=== PATIENT | female | born 1980 | race Caucasian/White ===

== ENCOUNTER 2023-02-13 12:38 | Emergency (ER) | payer OTHER, SELFPAY ==
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
[2023-02-13 12:44] VITALS: BP 91/63; PULSE 67; RESP 19; TEMP 36.6; O2SAT 98; BMI 24.1
[2023-02-13 13:04] LABS: MANUAL DIFF FLAG NO
[2023-02-13 13:11] LABS: Basophils Percent Auto 0.4 % (0-2); Eosinophils Absolute Auto 0.1 X10*3/uL (0.0-0.4); Eosinophils Percent Auto 1.7 % (0-4); Hematocrit 47.1 % (37.0-47.0); Hemoglobin 14.8 g/dl (12.0-16.0); Imm Gran Abs Auto 0.04 X10*3/uL (0.00-0.03); Imm Gran Pct Auto 0.6 % (0.0-0.4); Lymphocytes Absolute Auto 2.4 X10*3/uL (1.2-4.9); Lymphocytes Percent Auto 34.8 % (20-40); Mean Corpuscular HGB Conc 31.4 g/dl (31.0-35.0); Mean Corpuscular Hemoglobin 31.2 pg (27.0-33.0); Mean Corpuscular Volume 99.2 fL (80.0-98.0); Mean Platelet Volume 9.8 fL (9.4-12.3); Monocytes Absolute Auto 0.3 X10*3/uL (0.1-1.2); Monocytes Percent Auto 4.9 % (2-11); Neutrophils Percent Auto 57.6 % (45-73); Platelet Count 178 X10*3/uL (160-400); Red Blood Count 4.75 X10*6/uL (4.20-5.50); Red Cell Distribution Width 15.2 % (11.0-16.0)
[2023-02-13 13:12] LABS: Appearance Urine Turbid; Color Urine Yellow; Glucose Urine UA Negative (Negative); Leukocyte Esterase Urine Large (3+) (Negative); Nitrite Urine Positive (Negative); PH 5.5 (5.0-9.0); Specific Gravity - Urine 1.015 (1.005-1.025); UMIC TRIGGER UACC YES; Urine Blood Small (1+) (Negative); Urine Ketones Negative (Negative); Urine Protein 100 (2+) mg/dL (Neg-Trace)
[2023-02-13 13:23] LABS: Bacteria Urine 4+ (None Seen); Hyaline Casts Urine 0-2 /LPF (0-2); UACC Culture Trigger YES; WBC Clumps Urine Present; WBC Urine >50 /HPF (0-5)
[2023-02-13 13:25] LABS: Acetaminophen LAB < 17 mcg/mL (<30); Alanine Aminotransferase 32 U/L (0-31); Albumin Level 3.7 g/dL (3.5-5.0); Alkaline Phosphatase 69 U/L (39-117); Anion Gap 11 (12-20); Aspartate Amino Transferase 23 U/L (5-31); Bilirubin Direct 0.2 mg/dL (0.0-0.5); Bilirubin Total 0.6 mg/dL (0.0-1.0); Blood Urea Nitrogen 12 mg/dL (9-16); Calcium 9.4 mg/dL (8.4-10.2); Carbon Dioxide 29 mmol/L (22-29); Chloride 107 mmol/L (96-108); Creatinine Clr Calc Pharmacy 91.7; Estimated Glomerular Filt Rate > 60; Ethanol < 10 mg/dL; Glucose Random 75 mg/dL (60-115); Potassium 4.2 mmol/L (3.3-5.1); Salicylate < 5.0 mg/dL (15-30); Sodium 143 mmol/L (135-145); Total Protein 6.3 g/dL (6.5-8.0)
[2023-02-13 13:39] LABS: Amphetamine Screen Urine POSITIVE (Not Detect); Barbiturates, Urine Not Detected (Not Detect); Benzodiazepines Screen Urine Not Detected (Not Detect); Cannabinoid Screen Urine POSITIVE (Not Detect); Cocaine Screen Urine POSITIVE (Not Detect); Fentanyl, urine Not Detected (Not Detect); Opiate Screen Urine Not Detected (Not Detect); Phencyclidine Screen Urine Not Detected (Not Detect)
[2023-02-13] MEDS: Sulfamethox/Trimeth 800/160 TABLET 1 TAB PO (13:44)
[2023-02-13 13:49] LABS: UPreg QC Valid YES; Urine Pregnancy NEGATIVE (NEGATIVE)
== END 2023-02-13 14:16 | disposition home or self-care (01) ==
PROVIDERS: Physician Assistant; Emergency Provider Emergency Medicine
DX: N39.0 Urinary tract infection, site not specified (principal); B96.20 Unspecified Escherichia coli [E. coli] as the cause of diseases classified elsewhere; F19.10 Other psychoactive substance abuse, uncomplicated; R44.3 Hallucinations, unspecified; G35 Multiple sclerosis; F17.210 Nicotine dependence, cigarettes, uncomplicated; Z86.19 Personal history of other infectious and parasitic diseases; F11.20 Opioid dependence, uncomplicated
CPT/HCPCS: 36415; 80048; 80076; 80143; 80179; 80307; 81001; 81025; 85025; 87086; 87088; 87186; 99282; 99283

== ENCOUNTER 2023-02-14 15:34 | Inpatient (IN) | payer OTHER, SELFPAY ==
[2023-02-14 16:10] VITALS: BP 110/60; PULSE 73; RESP 16; TEMP 36.6; O2SAT 97
[2023-02-14] MEDS: Nicotine 21 MG PATCH.TD24 TRANSDERMA (16:53)
[2023-02-14 17:31] VITALS: BMI 24.0
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
[2023-02-14 18:00] VITALS: BP 82/46; PULSE 56; RESP 18; TEMP 36.6; O2SAT 93
--- NOTE | 2023-02-14 18:34 | PC.NURSE ---
Medication reconciliation completed with [facility]. Spoke to Svetlana.
[2023-02-14] MEDS: Sulfamethox/Trimeth 800/160 TABLET 1 TAB PO (21:10)
[2023-02-14] MEDS: Buprenorphine/Naloxone 8/2 mg FILM 1 FILM SUBLINGUAL (21:10)
[2023-02-14] MEDS: Gabapentin 300 MG CAPSULE PO (21:11)
--- NOTE | 2023-02-14 22:09 | PC.NURSE ---
Valarie is noted to be isolating in her room throughout the evening. her affect is flat and she was noted to be falling asleep during this writers interview. her B/P was noted to be 82/46 with a pulse of 56 in her right arm while laying. her B/P and pulse recheck while sitting was 98/63, 65 MD made aware. patient encouraged to increase her fluid intake. patient is noted to be requesting help from this medical underwriter to sit up. she is noted to have spastic arm/body movements r/t MS. she states that she does not use any type of ambulation device. she states that she is safe on the unit. monitor for safety, continue Plan of Care
[2023-02-15] MEDS: traZODone HCL 50 MG TABLET PO ×3 (01:40→22:37)
[2023-02-15] MEDS: hydrOXYzine HCL 25 MG TABLET PO (01:40)
[2023-02-15 07:00] VITALS: BMI 24.1
[2023-02-15 08:00] VITALS: BP 95/60; PULSE 68; RESP 18; TEMP 36.7; O2SAT 97
[2023-02-15 09:03] LABS: MANUAL DIFF FLAG NO
[2023-02-15 09:10] LABS: Basophils Percent Auto 0.7 % (0-2); Eosinophils Absolute Auto 0.1 X10*3/uL (0.0-0.4); Eosinophils Percent Auto 2.4 % (0-4); Hematocrit 40.8 % (37.0-47.0); Hemoglobin 12.6 g/dl (12.0-16.0); Imm Gran Abs Auto 0.02 X10*3/uL (0.00-0.03); Imm Gran Pct Auto 0.5 % (0.0-0.4); Lymphocytes Absolute Auto 2.1 X10*3/uL (1.2-4.9); Lymphocytes Percent Auto 49.2 % (20-40); Mean Corpuscular HGB Conc 30.9 g/dl (31.0-35.0); Mean Corpuscular Hemoglobin 30.3 pg (27.0-33.0); Mean Corpuscular Volume 98.1 fL (80.0-98.0); Monocytes Absolute Auto 0.2 X10*3/uL (0.1-1.2); Monocytes Percent Auto 4.5 % (2-11); Neutrophils Absolute Auto 1.8 x10*3/uL (2.0-8.3); Neutrophils Percent Auto 42.7 % (45-73); Platelet Count 151 X10*3/uL (160-400); Red Blood Count 4.16 X10*6/uL (4.20-5.50); Red Cell Distribution Width 14.9 % (11.0-16.0); White Blood Count 4.3 X10*3/uL (4.8-10.8)
[2023-02-15] MEDS: Gabapentin 300 MG CAPSULE PO ×3 (09:19→20:09)
[2023-02-15] MEDS: Sulfamethox/Trimeth 800/160 TABLET 1 TAB PO ×2 (09:20→20:09)
[2023-02-15] MEDS: Nicotine 21 MG PATCH.TD24 TRANSDERMA (09:20)
[2023-02-15] MEDS: Buprenorphine/Naloxone 8/2 mg FILM 2 FILM SUBLINGUAL (09:22)
[2023-02-15 09:37] LABS: Alanine Aminotransferase 20 U/L (0-31); Albumin Level 3.1 g/dL (3.5-5.0); Alkaline Phosphatase 55 U/L (39-117); Anion Gap 8 (12-20); Aspartate Amino Transferase 17 U/L (5-31); Bilirubin Direct 0.1 mg/dL (0.0-0.5); Bilirubin Total 0.4 mg/dL (0.0-1.0); Blood Urea Nitrogen 11 mg/dL (9-16); Carbon Dioxide 28 mmol/L (22-29); Chloride 110 mmol/L (96-108); Cholesterol 200 mg/dL (<200); Estimated Glomerular Filt Rate > 60; Glucose Fasting 101 mg/dL (60-99); HDL Cholesterol 34 mg/dL (>40); LDL Cholesterol Calculated 137 mg/dL (<100); Sodium 142 mmol/L (135-145); Total Protein 5.2 g/dL (6.5-8.0); Triglycerides 149 mg/dL (<150)
[2023-02-15 09:46] LABS: Free T4 (Free Thyroxine) 0.96 ng/dL (0.71-1.85); Thyroid Stimulating Hormone 0.38 uIU/mL (0.32-4.0)
[2023-02-15 09:59] LABS: Folate 4.1 ng/mL (> or = 4.0); Vitamin B12 220 pg/mL (200-900)
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
[2023-02-15 10:28] LABS: Estimated Average Glucose 103 mg/dL; Hemoglobin A1c % 5.2 % (<6.0)
[2023-02-15 10:35] VITALS: BP 95/60; PULSE 68; RESP 18; O2SAT 96
--- NOTE | 2023-02-15 11:12 | P.CONHOSP_ITS ---
History of Present Illness Data of Consult Service Date: 02/15/23 Primary Care Provider: Unknown Physician HPI Reason for consult: Admission H&P Pt is a 42-year-old female with a PMH significant for multiple sclerosis, congenital immune deficiency,?hepatitis C, polysubstance use disorder, anxiety, and depression who is admitted to [facility] unit for increasing audio and visual hallucinations and delusional behavior. Patient's boyfriend reports he was woken up a few nights ago to find the pt standing over him with a knife and BB gun. Medical consult for admission H&P. Of note patient was seen and evaluated in the ED 1 day prior to admission on 02/13/2023 and evaluated for tox screen and requesting detox placement. Tox screen positive for amphetamines, cocaine, marijuana, and negative for alcohol. UA positive for UTI, and she was started on Bactrim. Patient currently states she is feeling well with no acute medical complaints. Denies headache, fever, chills, nausea, vomiting, abdominal pain, diarrhea. No chest pain/pressure, palpitations. No shortness of breath. Patient does report that she had a hysterectomy scheduled for earlier this summer due to an ?enlarged uterus?, but surgery was postponed because patient is not medically cleared. Patient admits she has not seen her neurologist for a few years because she kept getting bad news about her MS and could no longer deal with it. She expresses a desire to resume seeing neurology but would like to switch practices. Labs reviewed, significant for UA positive for UTI. Review of Systems Review of Systems: No acute medical complaints [facility] Social History Household Members: Significant Other Household Members Other:: 2 Housing: House Do you presently have visiting nurse or other home services: No Patient Tobacco Use Status: Current everyday Tobacco user Tobacco use type: Cigarette Cigarette Packs Per Day: 1 Cigarettes Per Day: 20.0 Years Smoked: 25 Patient Interested in Nicotine Replacement: Yes Patient Given Instructions on How to Stop Smoking: Yes Date Education Initiated: 02/14/23 Second Hand Smoke Exposure: Yes Substance Use Type: Marijuana Substance Use Type Other:: daily since 15 years old, coffee daily Substance Use Frequency: Chronic Longstanding Last Used Substance: Just Prior to Admission Currently Displaying Signs/Symptoms of Drug Intoxication Withdrawal: No Any prior treatment program specific to substance use: Yes (Detox 15 years ago) Have you been hit, kicked, punched, or otherwise hurt by someone within the past year? If so, by whom?: No Do you feel safe in your current relationship?: Yes Is there a partner from a previous relationship who is making you feel unsafe now?: No Are you made to feel afraid or neglected: No Spiritual Healthcare Practices: I believe in [employer] Advance Directives: No Advance Directives Information Provided: No Do you have thoughts of harming others: None Do you have a plan to hurt others: No Plan Recently lost weight without trying: No How much weight loss: Not applicable Eating poorly because of decreased appetite: No Nutrition screen score: 0 Nutrition Risks: No Nutritional Risk Patient : No : No Poor oral hygiene: No service: No Sexual orientation: Straight/Heterosexual Meds Allergies Allergy/AdvReac Type Severity Reaction Status Date / Time No Known Allergies Allergy Verified 02/13/23 12:43 Active Medications: Current Medications Acetaminophen (Acetaminophen 325 Mg Tablet) 650 mg PO Q6H PRN PRN Reason: Headache/Pain Mild Scale (1-3) Al Hydroxide/Mg Hydroxide (Magnesium Hydrox/Alum Hydrox 30 Ml Oral.Susp) 30 ml PO Q6H PRN PRN Reason: Heartburn/Nausea Buprenorphine/Naloxone (Buprenorphine/Naloxone 8/2 Mg Film) 2 film SUBLINGUAL DAILY [facility] Last Admin: 02/15/23 09:22 Dose: 2 film Clonazepam (Clonazepam 0.5 Mg Tablet) 0.5 mg PO DAILY PRN PRN Reason: Anxiety Gabapentin (Gabapentin 300 Mg Capsule) 300 mg PO TID [facility] Last Admin: 02/15/23 09:19 Dose: 300 mg Hydroxyzine HCl (Hydroxyzine Hcl 25 Mg Tablet) 25 mg PO Q6H PRN PRN Reason: Anxiety Last Admin: 02/15/23 01:40 Dose: 25 mg Magnesium Hydroxide (Milk Of Magnesia 30 Ml Oral.Susp) 30 ml PO DAILY PRN PRN Reason: Constipation Nicotine (Nicotine 21 Mg Patch.Td24) 21 mg TRANSDERMA DAILY [facility] Last Admin: 02/15/23 09:20 Dose: 21 mg Nicotine Polacrilex (Nicotine Polacrilex 2 Mg Gum) 4 mg BUCCAL Q2H PRN PRN Reason: Nicotine Cravings Trazodone HCl (Trazodone Hcl 50 Mg Tablet) 50 mg PO BEDTIME MRX1 PRN PRN Reason: Insomnia Last Admin: 02/15/23 01:40 Dose: 50 mg Trimethoprim/Sulfamethoxazole (Sulfamethox/Trimeth 800/160 Tablet) 1 tab PO BID [facility] Last Admin: 02/15/23 09:20 Dose: 1 tab Home Medications Medication Instructions Recorded Confirmed Last Taken Type buprenorphine 8 mg-naloxone 2 mg 20 mg sublingual DAILY 02/14/23 02/14/23 02/13/23 History sublingual film 8/2 clonazepam 1 mg tablet 0.5 mg PO DAILY PRN Anxiety 02/14/23 02/14/23 02/13/23 History 0.5mg gabapentin 300 mg capsule 300 mg PO TID 02/14/23 02/14/23 Unknown History sulfamethoxazole 800 1 tab PO BID UTI 02/14/23 02/14/23 Unknown History mg-trimethoprim 160 mg tablet (Bactrim DS) Physical Exam Vital Signs and Narrative: Vital Signs: Last Vital Signs Temp 97.9 F 02/14/23 18:00 Pulse 56 02/14/23 18:00 Resp 18 02/14/23 18:00 BP 82/46 L 02/14/23 18:00 Pulse Ox 93 02/14/23 18:00 O2 Del Method Room Air 02/14/23 18:00 BMI result Body Mass Index 24.0 General: AOx3, no acute distress Resp: CTA bilaterally CVS: S1, S2, RRR GI: +BS, NT, no distention Skin: No rash Neuro: Cranial nerves II-XII grossly intact bilaterally. Motor grossly intact bilaterally Extremities: No edema Psych: Appropriate affect Results Labs 02/15/23 08:25 02/15/23 09:00 Labs: Laboratory Results - last 24 hr 02/15/23 02/15/23 02/15/23 08:25 08:25 08:25 MCV 98.1 H MCH 30.3 MCHC 30.9 L RDW 14.9 Plt Count 151 L MPV 10.0 Immature Gran % (Auto) 0.5 H Neut % (Auto) 42.7 L Lymph % (Auto) 49.2 H [place] % (Auto) 4.5 Eos % (Auto) 2.4 Baso % (Auto) 0.7 Lymph # (Auto) 2.1 [place] # (Auto) 0.2 Eos # (Auto) 0.1 Baso # (Auto) 0.0 Abs Immat Gran (auto) 0.02 Absolute Neuts (auto) 1.8 L Absolute Nucleated RBC 0.000 Nucleated RBC % (auto) 0.0 Anion Gap Estim Creat Clear Calc Estimated GFR Fasting Glucose Estimat Average Glucose 103 Hemoglobin A1c % 5.2 Calcium Total Bilirubin Direct Bilirubin AST ALT Alkaline Phosphatase Total Protein Albumin Triglycerides Cholesterol LDL Cholesterol, Calc HDL Cholesterol Vitamin B12 220 Folate 4.1 TSH Free T4 02/15/23 09:00 MCV MCH MCHC RDW Plt Count MPV Immature Gran % (Auto) Neut % (Auto) Lymph % (Auto) [place] % (Auto) Eos % (Auto) Baso % (Auto) Lymph # (Auto) [place] # (Auto) Eos # (Auto) Baso # (Auto) Abs Immat Gran (auto) Absolute Neuts (auto) Absolute Nucleated RBC Nucleated RBC % (auto) Anion Gap 8 L Estim Creat Clear Calc 86.0 Estimated GFR > 60 Fasting Glucose 101 H Estimat Average Glucose Hemoglobin A1c % Calcium 9.0 Total Bilirubin 0.4 Direct Bilirubin 0.1 AST 17 ALT 20 Alkaline Phosphatase 55 Total Protein 5.2 L Albumin 3.1 L Triglycerides 149 Cholesterol 200 H LDL Cholesterol, Calc 137 H HDL Cholesterol 34 L Vitamin B12 Folate TSH 0.38 Free T4 0.96 Assessment and Plan (1) Routine history and physical examination of adult: Status: Acute Plan Pt is a 42-year-old female with a PMH significant for multiple sclerosis, congenital immune deficiency,?hepatitis C, polysubstance use disorder, anxiety, and depression who is admitted to [facility] unit for increasing audio and visual hallucinations and delusional behavior. Patient's boyfriend reports he was woken up a few nights ago to find the pt standing over him with a knife and BB gun. Medical consult for admission H&P. 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 Signing off at this time. Please let us know if there are any acute complaints or questions. Time Spent With Patient Time: Total time managing care of this patient today ____ minutes.
[2023-02-15] MEDS: clonazePAM 0.5 MG TABLET PO (19:12)
[2023-02-15 20:07] VITALS: BP 115/55; PULSE 80; RESP 16; TEMP 36.6; O2SAT 94
[2023-02-15] MEDS: Benztropine Mesylate 0.5 MG TABLET PO (20:08)
[2023-02-15] MEDS: HaloperidoL 0.5 MG TABLET 2.5 MG PO (20:09)
--- NOTE | 2023-02-16 09:37 | HO.PSYCHPN ---
Subjective Subjective Date of Service: 02/16/23 Reason For Visit: Bipolar F31.9 Substance Use Disorder F19.2 Subjective Notes: Conditional Voluntary Interim History: Reviewed in team and . Patient reports feeling okay today. Patient presents with improved insight into events prior to admission. Patient stated, I don't think someone was in the mattress. I know all that wasn't true. Being here has helped. I think it was a mix of the stress I was going through and drugs. I'm not going to take Adderall and only get marijuana from the dispensary . Patient denies SI/HI/VH/AH at this time. Medication Compliance: Yes Side effects from medications: No Attending Groups: Intermittent Review of Systems Review of Systems No acute medical complaints Constitutional: Reports as per HPI Eyes: Reports as per HPI Reports as per HPI Cardiovascular: Reports as per HPI Respiratory: Reports as per HPI Gastrointestinal: Reports as per HPI Genitourinary: Reports as per HPI Musculoskeletal: Reports as per HPI Skin/Breast: Reports as per HPI Reports as per HPI Psychiatric: Reports as per HPI Endocrine: Reports as per HPI Hematologic/Lymphatic: Reports as per HPI Allergic/Immunologic: Reports as per HPI Mental Status Exam Mental Status Exam Narrative: Pt is alert and oriented; behavior is cooperative and calm; dressed in casual attire; mood is described as okay ; eye contact appropriate; Speech is normal rate, volume and prosody and not pressured; no psychomotor agitation/retardation present; thought process is organized and goal directed; Thought content is on tx; otherwise pertinent to relevant topics and without any delusional content, paranoid ideations or grandiosity; denies SI/HI. There is no evidence of perceptual disturbance. Patients insight and judgment are poor but improving. Diagnostics Vital Signs (24Hr): Vital Signs - 24 hr 02/15/23 10:35 02/15/23 20:07 Temperature 97.8 F Pulse Rate 68 80 Respiratory Rate 18 16 Blood Pressure 95/60 115/55 L Pulse Oximetry 96 94 Oxygen Delivery Method Room Air Room Air BMI result Body Mass Index 24.1 Labs 02/15/23 08:25 02/15/23 09:00 Labs: Laboratory Results - last 48 hr 02/15/23 02/15/23 02/15/23 08:25 08:25 08:25 WBC 4.3 L RBC 4.16 L Hgb 12.6 Hct 40.8 MCV 98.1 H MCH 30.3 MCHC 30.9 L RDW 14.9 Plt Count 151 L MPV 10.0 Immature Gran % (Auto) 0.5 H Neut % (Auto) 42.7 L Lymph % (Auto) 49.[address] [place] % (Auto) 4.5 Eos % (Auto) 2.4 Baso % (Auto) 0.7 Lymph # (Auto) 2.1 [place] # (Auto) 0.2 Eos # (Auto) 0.1 Baso # (Auto) 0.0 Abs Immat Gran (auto) 0.02 Absolute Neuts (auto) 1.8 L Absolute Nucleated RBC 0.000 Nucleated RBC % (auto) 0.0 Sodium Potassium Chloride Carbon Dioxide Anion Gap BUN Creatinine Estim Creat Clear Calc Estimated GFR Fasting Glucose Estimat Average Glucose 103 Hemoglobin A1c % 5.2 Calcium Total Bilirubin Direct Bilirubin AST ALT Alkaline Phosphatase Total Protein Albumin Triglycerides Cholesterol LDL Cholesterol, Calc HDL Cholesterol Vitamin B12 220 Folate 4.1 TSH Free T4 02/15/23 09:00 WBC RBC Hgb Hct MCV MCH MCHC RDW Plt Count MPV Immature Gran % (Auto) Neut % (Auto) Lymph % (Auto) [place] % (Auto) Eos % (Auto) Baso % (Auto) Lymph # (Auto) [place] # (Auto) Eos # (Auto) Baso # (Auto) Abs Immat Gran (auto) Absolute Neuts (auto) Absolute Nucleated RBC Nucleated RBC % (auto) Sodium 142 Potassium 4.0 Chloride 110 H Carbon Dioxide 28 Anion Gap 8 L BUN 11 Creatinine 0.66 Estim Creat Clear Calc 86.0 Estimated GFR > 60 Fasting Glucose 101 H Estimat Average Glucose Hemoglobin A1c % Calcium 9.0 Total Bilirubin 0.4 Direct Bilirubin 0.1 AST 17 ALT 20 Alkaline Phosphatase 55 Total Protein 5.2 L Albumin 3.1 L Triglycerides 149 Cholesterol 200 H LDL Cholesterol, Calc 137 H HDL Cholesterol 34 L Vitamin B12 Folate TSH 0.38 Free T4 0.96 Medications Medications Current Medications Acetaminophen (Acetaminophen 325 Mg Tablet) 650 mg PO Q6H PRN PRN Reason: Headache/Pain Mild Scale (1-3) Al Hydroxide/Mg Hydroxide (Magnesium Hydrox/Alum Hydrox 30 Ml Oral.Susp) 30 ml PO Q6H PRN PRN Reason: Heartburn/Nausea Benztropine Mesylate (Benztropine Mesylate 0.5 Mg Tablet) 0.5 mg PO BEDTIME [facility] Last Admin: 02/15/23 20:08 Dose: 0.5 mg Buprenorphine/Naloxone (Buprenorphine/Naloxone 8/2 Mg Film) 2 film SUBLINGUAL DAILY [facility] Last Admin: 02/15/23 09:22 Dose: 2 film Clonazepam (Clonazepam 0.5 Mg Tablet) 0.5 mg PO DAILY PRN PRN Reason: Anxiety Last Admin: 02/15/23 19:12 Dose: 0.5 mg Gabapentin (Gabapentin 300 Mg Capsule) 300 mg PO TID [facility] Last Admin: 02/15/23 20:09 Dose: 300 mg Haloperidol (Haloperidol 0.5 Mg Tablet) 2.5 mg PO BEDTIME [facility] Last Admin: 02/15/23 20:09 Dose: 2.5 mg Hydroxyzine HCl (Hydroxyzine Hcl 25 Mg Tablet) 25 mg PO Q6H PRN PRN Reason: Anxiety Last Admin: 02/15/23 01:40 Dose: 25 mg Magnesium Hydroxide (Milk Of Magnesia 30 Ml Oral.Susp) 30 ml PO DAILY PRN PRN Reason: Constipation Nicotine (Nicotine 21 Mg Patch.Td24) 21 mg TRANSDERMA DAILY [facility] Last Admin: 02/15/23 09:20 Dose: 21 mg Nicotine Polacrilex (Nicotine Polacrilex 2 Mg Gum) 4 mg BUCCAL Q2H PRN PRN Reason: Nicotine Cravings Pt Own Medication ( Biotene Oral Rinse 15 Ml) 15 ml PO TID [facility] Stop: 03/01/23 09:01 Last Admin: 02/15/23 21:51 Dose: Not Given Trazodone HCl (Trazodone Hcl 50 Mg Tablet) 50 mg PO BEDTIME MRX1 PRN PRN Reason: Insomnia Last Admin: 02/15/23 22:37 Dose: 50 mg Trimethoprim/Sulfamethoxazole (Sulfamethox/Trimeth 800/160 Tablet) 1 tab PO BID [facility] Last Admin: 02/15/23 20:09 Dose: 1 tab Allergies Allergies Allergy/AdvReac Type Severity Reaction Status Date / Time No Known Allergies Allergy Verified 02/13/23 12:43 Assessment & Plan Assessment & Plan (1) Delusional disorder: Status: Acute Code(s): F22 - Delusional disorders (2) Substance-induced psychotic disorder with hallucinations: Status: Acute Code(s): F19.951 - Other psychoactive substance use, unspecified with psychoactive substance-induced psychotic disorder with hallucinations (3) Routine history and physical examination of adult: Status: Acute Code(s): Z00.00 - Encounter for general adult medical examination without abnormal findings Plan Patient is a 42 year old female who self presented to [facility] secondary to her boyfriend reporting being woken up with pt standing over him with a knife and BB gun stating that she is going to kill the lady that is between their mattress and boxspring. Plan: CV 15 minute safety checks Referral for therapist Referral for prescriber Haldol 2.5mg PO bedtime Cogentin 0.5mg PO bedtime 02/16: Patient reports feeling okay today. Patient presents with improved insight into events prior to admission. Patient stated, I don't think someone was in the mattress. I know all that wasn't true. Being here has helped. I think it was a mix of the stress I was going through and drugs. I'm not going to take Adderall and only get marijuana from the dispensary . Continue current tx plan. Patient educated on: diagnosis, medication risk/benefits, substance abuse and therapeutic strategies Informed Consent: understands Reason for continued inpatient stay Substantial Risk for: med/psych decompensation Time Spent With Patient Time: Total time managing care of this patient today _30___ minutes.
[2023-02-16] MEDS: Nicotine 21 MG PATCH.TD24 TRANSDERMA (09:42)
[2023-02-16] MEDS: Buprenorphine/Naloxone 8/2 mg FILM 2 FILM SUBLINGUAL (09:43)
[2023-02-16] MEDS: Gabapentin 300 MG CAPSULE PO ×3 (09:45→20:04)
[2023-02-16 09:55] VITALS: BP 101/59; PULSE 80; RESP 17; TEMP 36.3; O2SAT 91
[2023-02-16 10:00] VITALS: BP 84/56; PULSE 70; RESP 16; O2SAT 92
[2023-02-16] MEDS: Sulfamethox/Trimeth 800/160 TABLET 1 TAB PO ×2 (10:12→20:04)
[2023-02-16 12:35] VITALS: BP 124/69; PULSE 71; RESP 16; TEMP 36.2; O2SAT 93
[2023-02-16] MEDS: clonazePAM 0.5 MG TABLET PO (12:39)
--- NOTE | 2023-02-16 15:32 | PC.NURSE ---
Patient Alert 0x4, she c/o of dizziness when standing. Gait is steady and patient denies discomfort. Vitals at 1015 automated b/p 84/56 heart rate 70. Marlin Muniz COUNTER CLERK notified at 1022 of patients status. Patient took her scheduled am medications. Per PA, no orders probably due to scheduled Suboxone. Patient's B/p rechecked at 1239 b/p 124/69 HR 71. Patient alert and ox4 reported less dizziness and gait remained steady.
[2023-02-16] MEDS: hydrOXYzine HCL 25 MG TABLET PO (17:05)
[2023-02-16] MEDS: Milk of Magnesia 30 ML ORAL.SUSP PO (19:18)
[2023-02-16] MEDS: HaloperidoL 0.5 MG TABLET 2.5 MG PO (20:04)
[2023-02-16] MEDS: Benztropine Mesylate 0.5 MG TABLET PO (20:04)
[2023-02-16] MEDS: traZODone HCL 50 MG TABLET PO ×2 (20:04→21:20)
[2023-02-16 20:05] VITALS: BP 134/57; PULSE 72; RESP 16; TEMP 36.6; O2SAT 95
[2023-02-17] MEDS: hydrOXYzine HCL 25 MG TABLET PO ×2 (01:10→22:28)
[2023-02-17 09:00] VITALS: BP 99/59; PULSE 89; RESP 16; TEMP 36.1; O2SAT 91
[2023-02-17] MEDS: Nicotine 21 MG PATCH.TD24 TRANSDERMA ×2 (09:20→13:40)
[2023-02-17] MEDS: Gabapentin 300 MG CAPSULE PO ×3 (09:21→20:02)
[2023-02-17] MEDS: Buprenorphine/Naloxone 8/2 mg FILM 2 FILM SUBLINGUAL (09:21)
[2023-02-17] MEDS: Sulfamethox/Trimeth 800/160 TABLET 1 TAB PO ×2 (09:21→20:03)
--- NOTE | 2023-02-17 10:47 | HO.PSYCHPN ---
Subjective Subjective Date of Service: 02/17/23 Reason For Visit: Bipolar F31.9 Substance Use Disorder F19.2 Interim History: She reports she has been excellent. Patient also reports feeling upset because her ex got full custody of their 14 year old daughter. She says the court hearing was supposed to be postponed while she was here but it wasn't. She says she wants to leave Sunday so she can work on contacting [facility] and her about this matter. She requests increase Clonazepam which was deferred. Her O2 sats are low 90's but she says they have always been low. She reports she is not ready to stop smoking. Patient denies SI/HI/VH/AH at this time. Review of Systems Review of Systems No acute medical complaints Constitutional: Reports as per HPI Eyes: Reports as per HPI Reports as per HPI Cardiovascular: Reports as per HPI Respiratory: Reports as per HPI Gastrointestinal: Reports as per HPI Musculoskeletal: Reports as per HPI Skin/Breast: Reports as per HPI Reports as per HPI Psychiatric: Reports as per HPI Endocrine: Reports as per HPI Hematologic/Lymphatic: Reports as per HPI Allergic/Immunologic: Reports as per HPI Mental Status Exam Mental Status Exam Narrative: Pt is alert and oriented; behavior is cooperative and calm; dressed in casual attire; mood is described as okay ; eye contact appropriate; Speech is normal rate, volume and prosody and not pressured; no psychomotor agitation/retardation present; thought process is organized and goal directed; Thought content is on tx; otherwise pertinent to relevant topics and without any delusional content, paranoid ideations or grandiosity; denies SI/HI. There is no evidence of perceptual disturbance. Patients insight and judgment are poor but improving. Diagnostics Vital Signs (24Hr): Vital Signs - 24 hr 02/16/23 12:35 02/16/23 20:05 02/17/23 09:00 Temperature 97.2 F 97.8 F 96.9 F Pulse Rate 71 72 89 Respiratory Rate 16 16 16 Blood Pressure 124/69 134/57 L 99/59 L Pulse Oximetry 93 95 91 L Oxygen Delivery Method Room Air Room Air Room Air BMI result Body Mass Index 24.1 Labs 02/15/23 08:25 02/15/23 09:00 Medications Medications Current Medications Acetaminophen (Acetaminophen 325 Mg Tablet) 650 mg PO Q6H PRN PRN Reason: Headache/Pain Mild Scale (1-3) Al Hydroxide/Mg Hydroxide (Magnesium Hydrox/Alum Hydrox 30 Ml Oral.Susp) 30 ml PO Q6H PRN PRN Reason: Heartburn/Nausea Benztropine Mesylate (Benztropine Mesylate 0.5 Mg Tablet) 0.5 mg PO BEDTIME [facility] Last Admin: 02/16/23 20:04 Dose: 0.5 mg Buprenorphine/Naloxone (Buprenorphine/Naloxone 8/2 Mg Film) 2 film SUBLINGUAL DAILY [facility] Last Admin: 02/17/23 09:21 Dose: 2 film Clonazepam (Clonazepam 0.5 Mg Tablet) 0.5 mg PO DAILY PRN PRN Reason: Anxiety Last Admin: 02/16/23 12:39 Dose: 0.5 mg Gabapentin (Gabapentin 300 Mg Capsule) 300 mg PO TID [facility] Last Admin: 02/17/23 09:21 Dose: 300 mg Haloperidol (Haloperidol 0.5 Mg Tablet) 2.5 mg PO BEDTIME [facility] Last Admin: 02/16/23 20:04 Dose: 2.5 mg Hydroxyzine HCl (Hydroxyzine Hcl 25 Mg Tablet) 25 mg PO Q6H PRN PRN Reason: Anxiety Last Admin: 02/17/23 01:10 Dose: 25 mg Magnesium Hydroxide (Milk Of Magnesia 30 Ml Oral.Susp) 30 ml PO DAILY PRN PRN Reason: Constipation Last Admin: 02/16/23 19:18 Dose: 30 ml Nicotine (Nicotine 21 Mg Patch.Td24) 21 mg TRANSDERMA DAILY [facility] Last Admin: 02/17/23 09:20 Dose: 21 mg Nicotine Polacrilex (Nicotine Polacrilex 2 Mg Gum) 4 mg BUCCAL Q2H PRN PRN Reason: Nicotine Cravings Pt Own Medication ( Biotene Oral Rinse 15 Ml) 15 ml PO TID [facility] Stop: 03/01/23 09:01 Last Admin: 02/17/23 09:28 Dose: Not Given Trazodone HCl (Trazodone Hcl 50 Mg Tablet) 50 mg PO BEDTIME MRX1 PRN PRN Reason: Insomnia Last Admin: 02/16/23 21:20 Dose: 50 mg Trimethoprim/Sulfamethoxazole (Sulfamethox/Trimeth 800/160 Tablet) 1 tab PO BID [facility] Last Admin: 02/17/23 09:21 Dose: 1 tab Allergies Allergies Allergy/AdvReac Type Severity Reaction Status Date / Time No Known Allergies Allergy Verified 02/13/23 12:43 Assessment & Plan Assessment & Plan (1) Delusional disorder: Status: Acute Code(s): F22 - Delusional disorders (2) Substance-induced psychotic disorder with hallucinations: Status: Acute Code(s): F19.951 - Other psychoactive substance use, unspecified with psychoactive substance-induced psychotic disorder with hallucinations (3) Routine history and physical examination of adult: Status: Acute Code(s): Z00.00 - Encounter for general adult medical examination without abnormal findings Plan Patient is a 42 year old female who self presented to [facility] secondary to her boyfriend reporting being woken up with pt standing over him with a knife and BB gun stating that she is going to kill the lady that is between their mattress and boxspring. Plan: CV 15 minute safety checks Referral for therapist Referral for prescriber Haldol 2.5mg PO bedtime Cogentin 0.5mg PO bedtime 02/16: Patient reports feeling okay today. Patient presents with improved insight into events prior to admission. Patient stated, I don't think someone was in the mattress. I know all that wasn't true. Being here has helped. I think it was a mix of the stress I was going through and drugs. I'm not going to take Adderall and only get marijuana from the dispensary . Continue current tx plan. 02/17: Continue current treatment plan. Reason for continued inpatient stay Substantial Risk for: inability to function and rapid decompensation Time Spent With Patient Time: Total time managing care of this patient today ____ minutes.
[2023-02-17] MEDS: clonazePAM 0.5 MG TABLET PO (14:41)
[2023-02-17 19:50] VITALS: BP 111/64; PULSE 70; RESP 16; TEMP 36.1; O2SAT 96
[2023-02-17] MEDS: HaloperidoL 0.5 MG TABLET 2.5 MG PO (20:01)
[2023-02-17] MEDS: Benztropine Mesylate 0.5 MG TABLET PO (20:03)
[2023-02-17] MEDS: Simethicone 80 MG TAB.CHEW PO (20:03)
[2023-02-17] MEDS: traZODone HCL 50 MG TABLET PO ×2 (20:03→22:28)
--- NOTE | 2023-02-17 20:18 | PC.NURSE ---
Valarie reported that she vomited at 1999. Patient stated that she is now feeling better and it must of been something she ate that did not agree with her stomach. Patient currently in bed resting.
[2023-02-18 09:28] VITALS: BP 97/60; PULSE 77; TEMP 36.2; O2SAT 90
[2023-02-18] MEDS: Nicotine 21 MG PATCH.TD24 TRANSDERMA (09:34)
[2023-02-18] MEDS: Buprenorphine/Naloxone 8/2 mg FILM 2 FILM SUBLINGUAL (09:35)
[2023-02-18] MEDS: Gabapentin 300 MG CAPSULE PO ×3 (09:35→19:57)
[2023-02-18] MEDS: Sulfamethox/Trimeth 800/160 TABLET 1 TAB PO ×2 (09:35→19:52)
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
[2023-02-18] MEDS: clonazePAM 0.5 MG TABLET PO (14:13)
[2023-02-18 18:00] VITALS: BP 101/65; PULSE 77; TEMP 36.2; O2SAT 94
[2023-02-18] MEDS: traZODone HCL 50 MG TABLET PO ×2 (19:52→21:33)
[2023-02-18] MEDS: HaloperidoL 0.5 MG TABLET 2.5 MG PO (19:56)
[2023-02-18] MEDS: Benztropine Mesylate 0.5 MG TABLET PO (19:57)
[2023-02-19 07:59] VITALS: BP 101/55; PULSE 87; RESP 16; TEMP 36.6; O2SAT 92
[2023-02-19] MEDS: Sulfamethox/Trimeth 800/160 TABLET 1 TAB PO (08:07)
[2023-02-19] MEDS: Buprenorphine/Naloxone 8/2 mg FILM 2 FILM SUBLINGUAL (08:07)
[2023-02-19] MEDS: Nicotine 21 MG PATCH.TD24 TRANSDERMA (08:07)
[2023-02-19] MEDS: Gabapentin 300 MG CAPSULE PO (08:07)
[2023-02-19] MEDS: clonazePAM 0.5 MG TABLET PO (11:30)
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
== END 2023-02-19 14:02 | disposition home or self-care (01) | DRG 897 ==
PROVIDERS: Admitting Provider Psychiatry & Neurology Psychiatry; Responsible Provider Registered Nurse; Visit Provider Psychiatry & Neurology Psychiatry
DX: F19.951 Other psychoactive substance use, unspecified with psychoactive substance-induced psychotic disorder with hallucinations (principal); F11.20 Opioid dependence, uncomplicated; N39.0 Urinary tract infection, site not specified; G35 Multiple sclerosis; Z86.19 Personal history of other infectious and parasitic diseases; F17.210 Nicotine dependence, cigarettes, uncomplicated; Z71.6 Tobacco abuse counseling; Z79.899 Other long term (current) drug therapy
CPT/HCPCS: 36415; 80053; 80061; 80076; 82607; 82746; 83036; 84439; 84443; 85025

== ENCOUNTER → 2023-02-14 15:34 | Outpatient (BNV) | payer OTHER, SELFPAY | PROVIDERS: Admitting Provider Psychiatry & Neurology Psychiatry; Responsible Provider Registered Nurse; Visit Provider Registered Nurse | DX: F22 Delusional disorders (principal); F19.951 Other psychoactive substance use, unspecified with psychoactive substance-induced psychotic disorder with hallucinations; F31.9 Bipolar disorder, unspecified | CPT/HCPCS: 90792; 99231; 99232; 99238 ==

== ENCOUNTER → 2023-02-14 15:34 | Outpatient (BNV) | payer OTHER, SELFPAY | PROVIDERS: Admitting Provider Psychiatry & Neurology Psychiatry; Responsible Provider Registered Nurse; Visit Provider Student in an Organized Health Care Education/Training Program | DX: G35 Multiple sclerosis (principal); N39.0 Urinary tract infection, site not specified; B19.20 Unspecified viral hepatitis C without hepatic coma | CPT/HCPCS: 99222 ==

== ENCOUNTER 2024-07-20 17:00 | Inpatient (IN) | payer OTHER, SELFPAY ==
--- NOTE | ~2024-07-20 | XR_ITS ---
EXAMINATION: XR CHEST CLINICAL INFORMATION: Hypoxia COMPARISON: X-ray dated July 21, 2024 TECHNIQUE: Frontal view of the chest was obtained. FINDINGS: Linear opacities and haziness in the right lower hemithorax. No pneumothorax. No hyperinflation. Cardiomediastinal silhouette is normal in size. Osseous structures are intact. XR/XR chest 1V IMPRESSION: Overall improved aeration since prior examination. Probable atelectasis, lung bases. Probable mild interstitial lung edema. Electronically signed by: Nikolas Castillo MD 07/22/2024 10:12 AM [facility]
--- NOTE | ~2024-07-20 | XR_ITS ---
EXAMINATION: XR CHEST CLINICAL INFORMATION: hypoxic COMPARISON: None available. TECHNIQUE: Frontal view of the chest was obtained. FINDINGS: The lungs are moderately expanded with a bandlike density in the right lower lobe likely atelectasis. There is patchy opacity left lung base likely atelectasis. Infiltrate is not excluded. The heart size and pulmonary vascularity is normal. No gross bony abnormality seen. XR/XR chest 1V IMPRESSION: Bandlike atelectasis right lower lobe. Patchy opacity left lung base likely infiltrate or atelectasis. Electronically signed by: Kit Dawson MD 07/21/2024 08:47 AM [facility]
--- NOTE | ~2024-07-20 | CT_ITS ---
CLINICAL HISTORY: severe hypoxia CT angiography chest with contrast. 3D Postprocessing. Comparison: CR/SR - XR CHEST 1V - 07/21/24 07:58 EST Findings: The heart size is normal. RV/LV ratio is normal. Unremarkable thoracic aorta and great vessels. No aneurysm. No acute pulmonary embolus. The visualized thyroid and mediastinum are unremarkable. Bibasilar area of consolidations which could represent atelectasis or developing pneumonia. The visualized upper abdomen is unremarkable. The bones are intact. IMPRESSION: 1. No pulmonary embolus. 2. Bibasilar consolidation which could represent atelectasis or developing pneumonia. This document has been electronically signed by: Mirela Cruz MD on 07/21/2024 21:49:02
--- NOTE | 2024-07-20 17:03 | ED.GENADULT ---
HPI - General Adult General Chief complaint: Psychiatric Symptoms Stated complaint: crisis, insomnia, hallucinations Time Seen by Provider: 07/20/24 17:18 Source: patient, RN notes reviewed and old records reviewed Mode of arrival: ambulatory Limitations: no limitations History of Present Illness ED Provider: Cam HPI narrative: 44-year-old female past medical history significant for delusional disorder, substance abuse presents for evaluation of ?hallucinations, insomnia, and depression. ? Patient reports that for the last 3 days she has been unable to sleep. She states that she is hallucinating due to her lack of sleep. She is both hearing things and seeing things that she does not believe to be there She also endorses suicidal ideation with plan to overdose. The patient was seen here a year and a half ago for suicidal ideation and reports that she received inpatient care which helped her greatly She reports that she has been off her medications because her primary doctor retired and she does not have a new on Related Data Home Medications ?Medication ?Instructions ?Recorded ?Confirmed famotidine 20 mg tablet 20 mg PO BID PRN upset stomach 07/20/24 07/20/24 folic acid 1 mg tablet 1 mg PO DAILY 07/20/24 07/20/24 gabapentin 400 mg capsule 400 mg PO QID 07/20/24 07/20/24 Allergies Allergy/AdvReac Type Severity Reaction Status Date / Time No Known Allergies Allergy Verified 07/20/24 17:04 Review of Systems Constitutional: Constitutional: Denies body ache(s), Denies chills and Denies headache(s) Eyes: Eyes: Denies blurry vision ENT: Denies vertigo, Denies dizziness and Denies headache(s) Cardiovascular: Cardiovascular: Denies chest pain and Denies dyspnea Respiratory: Respiratory: Denies cough and Denies dyspnea Gastrointestinal: Gastrointestinal: Denies abdominal pain Musculoskeletal: Musculoskeletal: Reports myalgias Neurologic: Denies vertigo, Denies dizziness and Denies headache(s) Psychiatric: Psychiatric: Reports anxiety, Reports depression, Reports auditory hallucinations, Reports mood swings, Reports visual hallucinations, Denies tactile hallucinations, Reports homicidal ideation and Reports suicidal ideation [facility] Past Medical History Medical History (Updated 07/20/24 @ 18:01 by Dayday Levy) Hx of hepatitis C Multiple sclerosis Routine history and physical examination of adult Social History Social History Household Members: Significant Other Household Members Other:: 2 Housing: House Do you presently have visiting nurse or other home services: No Patient Tobacco Use Status: Current everyday Tobacco user Tobacco use type: Cigarette Cigarette Packs Per Day: 1 Cigarettes Per Day: 20.0 Years Smoked: 25 Smoked in Last 30 Days: No Second Hand Smoke Exposure: Yes Use of substances other than those prescribed or required for medical reasons: Yes Substance Use Type: Painkillers Advance Directives: No Advance Directives Information Provided: No Do you have a plan to hurt others: Specific Patient : No service: No Sexual orientation: Straight/Heterosexual Physical Exam ED Vital Signs: Vital Signs - 24 hr 07/20/24 17:04 07/20/24 17:47 Temperature 98.3 F Pulse Rate 101 H Respiratory Rate 18 16 Blood Pressure 148/88 H Pulse Oximetry 93 Oxygen Delivery Method Room Air BMI result Body Mass Index 30.7 Const General: healthy appearing, comfortable, no acute distress, alert and awake Nutritional Appearance: well nourished Orientation/consciousness: patient oriented x3 HENMT Head: Yes normocephalic and Yes atraumatic Eyes Eyelids: Yes eyelids normal Conjunctivae: conjunctivae normal Sclerae: sclerae normal Corneas: corneas normal Pupils: Equal, round and reactive pupils present EOM: EOMs intact bilaterally Neck Neck: Yes full ROM Resp Effort & Inspection: normal respiratory effort, able to speak in complete sentences and not labored Cardio Rate: regular rate Rhythm: regular rhythm GI Inspection: No distended Palpation (GI): Soft to palpation, not firm, nontender, no guarding and not rigid Skin General skin exam: elasticity normal Neuro General: patient oriented x3 Cranial nerves: Yes CN's II-XII intact bilaterally, Yes Equal, round and reactive pupils present and Yes Bilaterally intact EOM present Cognition (Neuro): normal cognition Extrem Other: Moving all extremities well without any obvious deformities Psych Appearance: grossly normal Speech and movement: Restless speech present Affect: Sad affect present Attitude: cooperative Thought process: Normal thought process present Thought content: Suicidality present, Hallucination(s) present and Depressive thoughts present Insight: Fair insight present (Psych) Judgement: Fair judgement present (Psych) Course Course Course Narrative: RME performed by Mariel Clay PA-C. Patient is a 44 year old assigned female at presenting to the emergency department with insomnia. Patient states she is feeling very tired and has not been sleeping well / at all over the last 3 days. Patient states that she is hallucinating people in the house. Patient talking about hurting herself recently. Detailed physical exam and review of systems are deferred to the janitorial tech. EKG, labs, and swabs ordered. guest service agent made aware. Medications Administered Generic Name Dose Route Start Last Admin Trade Name Freq PRN Reason Stop Dose Admin Famotidine 20 mg 07/20/24 18:02 07/20/24 20:03 Famotidine 20 Mg Tablet PO 20 mg BID PRN Administration upset stomach Gabapentin 400 mg 07/20/24 21:00 07/20/24 20:03 Gabapentin 400 Mg Capsule PO 400 mg QID LATASHA Administration Melatonin 3 mg 07/20/24 20:20 07/20/24 20:27 Melatonin 3 Mg Tablet PO 3 mg BEDTIME PRN Administration Insomnia Discontinued Medications Generic Name Dose Route Start Last Admin Trade Name Freq PRN Reason Stop Dose Admin Clonazepam 1 mg 07/20/24 18:02 07/20/24 18:19 Clonazepam 1 Mg Tablet PO 07/20/24 18:03 1 mg ONCE ONE Administration Lorazepam 2 mg 07/20/24 23:01 07/20/24 23:05 Lorazepam 1 Mg Tablet PO 07/20/24 23:02 2 mg ONCE STA Administration Nicotine 21 mg 07/20/24 19:30 07/20/24 19:05 Nicotine 21 Mg Patch.Td24 TRANSDERMA 07/20/24 19:31 21 mg ONCE ONE Administration Nicotine 21 mg 07/20/24 18:45 07/20/24 18:46 Nicotine 21 Mg Patch.Td24 TRANSDERMA 07/20/24 18:46 Not Given ONCE ONE Medical Decision Making Medical Decision Making MDM Narrative: 44-year-old female presents for evaluation of suicidal ideation as well as hallucinations. Plan for medical clearance and care team evaluation. She is nontoxic appearing, she is quite anxious and requesting ?Klonopin and pain medicine like Percocet. ? She reports that she has previously been prescribed these but has been buying them off the street because her primary doctor retired 07/21/2024 at 01:09 hours,Dr. Morgan Sheppard's note: According to the patient's nurse, the patient manic behavior, she was not been able to sleep and has been getting to hallucinate. Patient was given melatonin 3 mg and lorazepam 2 mg with no improvement. Given her hallucinations the patient was ordered to get Haldol 10 mg orally and Benadryl 50 mg orally. Differential Diagnosis Differential Diagnoses: The differential diagnosis associated with the presentation includes Schizophrenia [place] Substance abuse Psychosis Insomnia Admission/Observation Consideration of admission/observation: Escalation of care including admission/observation considered Lab Data 07/20/24 18:16 07/20/24 18:16 Labs: Lab Results 07/20/24 07/20/24 Range/Units 18:16 18:17 WBC 7.0 (4.8-10.8) X10*3/uL RBC 5.03 D (4.20-5.50) X10*6/uL Hgb 16.1 H D (12.0-16.0) g/dl Hct 48.3 H (37.0-47.0) % MCV 96.0 (80.0-98.0) fL MCH 32.0 (27.0-33.0) pg MCHC 33.3 (31.0-35.0) g/dl RDW 14.7 (11.0-16.0) % Plt Count 161 (160-400) X10*3/uL MPV 10.5 (9.4-12.3) fL Immature Gran % (Auto) 0.4 (0.0-0.4) % Neut % (Auto) 68.9 (45-73) % Lymph % (Auto) 23.3 (20-40) % [place] % (Auto) 6.0 (2-11) % Eos % (Auto) 1.0 (0-4) % Baso % (Auto) 0.4 (0-2) % Lymph # (Auto) 1.6 (1.2-4.9) X10*3/uL [place] # (Auto) 0.4 (0.1-1.2) X10*3/uL Eos # (Auto) 0.1 (0.0-0.4) X10*3/uL Baso # (Auto) 0.0 (0.0-0.2) X10*3/uL Abs Immat Gran (auto) 0.03 (0.00-0.03) X10*3/uL Absolute Neuts (auto) 4.8 (2.0-8.3) x10*3/uL Absolute Nucleated RBC 0.000 (0.0-0.012) X10*3/uL Nucleated RBC % (auto) 0.0 (0.0-0.2) /100WBC Sodium 142 (135-145) mmol/L Potassium 3.8 (3.3-5.1) mmol/L Chloride 112 H (96-108) mmol/L Carbon Dioxide 23 (22-29) mmol/L Anion Gap 11 L (12-20) BUN 16 (9-16) mg/dL Creatinine 0.67 (0.5-1.4) mg/dL Estim Creat Clear Calc 93.4 Estimated GFR > 60 Random Glucose 106 (60-115) mg/dL Calcium 9.4 (8.4-10.2) mg/dL Total Bilirubin 1.1 H (0.0-1.0) mg/dL AST 44 H (5-31) U/L ALT 39 H (0-31) U/L Alkaline Phosphatase 75 (39-117) U/L Total Protein 7.2 (6.5-8.0) g/dL Albumin 4.3 (3.5-5.0) g/dL Urine Color Dark Yellow Urine Appearance Cloudy Urine pH 5.5 (5.0-9.0) Ur Specific [place] >= 1.030 H (1.005-1.025) Urine Protein Trace (Neg-Trace) mg/dL Urine Glucose (UA) Negative (Negative) mg/dL Urine Ketones Trace (Negative) mg/dL Urine Blood Negative (Negative) Urine Nitrite Negative (Negative) Ur Leukocyte Esterase Negative (Negative) Urine Test NEGATIVE (NEGATIVE) Salicylates < 5.0 L (15-30) mg/dL Urine Opiates Screen Not Detected (Not Detect) Ur Buprenorphine Scrn Positive H (Not Detect) ng/mL Ur Oxycodone Screen Not Detected (Not Detect) ng/mL Urine Methadone Screen Not Detected (Not Detect) ng/mL Urine Fentanyl Screen Not Detected (Not Detect) Acetaminophen < 3 (<30) mcg/mL Ur Barbiturates Screen Not Detected (Not Detect) Ur Phencyclidine Scrn Not Detected (Not Detect) Ur Amphetamines Screen POSITIVE H (Not Detect) U Benzodiazepines Scrn Not Detected (Not Detect) Urine Cocaine Screen Not Detected (Not Detect) U Marijuana (THC) Screen POSITIVE H (Not Detect) Ethyl Alcohol < 10 mg/dL COVID-19 (JAMEL) Negative (Negative) COVID-19 Clin Com See Note Discharge Plan Discharge Clinical Impression: Suicidal ideation, Auditory hallucinations Patient Disposition: Still a Patient Prescriptions: No Action gabapentin 400 mg capsule 400 mg PO QID famotidine 20 mg tablet 20 mg PO BID PRN (Reason: upset stomach) folic acid 1 mg tablet 1 mg PO DAILY Interventions: [place]-Suicide Risk Severity Scale Last Done: 07/20/24 17:47 Print Language: Armenian
[2024-07-20 17:04] VITALS: BP 148/88; PULSE 101; RESP 18; TEMP 36.8; O2SAT 93; BMI 30.7
--- NOTE | 2024-07-20 17:06 | ECG_ITS ---
Test Reason : tachy Blood Pressure : */* mmHG Vent. Rate : 115 BPM Atrial Rate : 115 BPM P-R Int : 168 ms QRS Dur : 82 ms QT Int : 334 ms P-R-T Axes : 65 8 -3 degrees QTcB Int : 462 ms Sinus tachycardia Septal infarct , age undetermined ; could be related to body habitus and lead placement Abnormal ECG No previous ECGs available Referred By: Leonard Coello Electronically Signed By: AKHIL BELL
[2024-07-20 17:47] VITALS: RESP 16
[2024-07-20] MEDS: clonazePAM 1 MG TABLET PO (18:19)
[2024-07-20 18:22] LABS: MANUAL DIFF FLAG NO
[2024-07-20 18:24] LABS: Basophils Percent Auto 0.4 % (0-2); Eosinophils Absolute Auto 0.1 X10*3/uL (0.0-0.4); Hematocrit 48.3 % (37.0-47.0); Hemoglobin 16.1 g/dl (12.0-16.0); Imm Gran Abs Auto 0.03 X10*3/uL (0.00-0.03); Imm Gran Pct Auto 0.4 % (0.0-0.4); Lymphocytes Absolute Auto 1.6 X10*3/uL (1.2-4.9); Lymphocytes Percent Auto 23.3 % (20-40); Mean Corpuscular HGB Conc 33.3 g/dl (31.0-35.0); Mean Platelet Volume 10.5 fL (9.4-12.3); Monocytes Absolute Auto 0.4 X10*3/uL (0.1-1.2); Neutrophils Absolute Auto 4.8 x10*3/uL (2.0-8.3); Neutrophils Percent Auto 68.9 % (45-73); Platelet Count 161 X10*3/uL (160-400); Red Blood Count 5.03 X10*6/uL (4.20-5.50); Red Cell Distribution Width 14.7 % (11.0-16.0)
[2024-07-20 18:26] LABS: Appearance Urine Cloudy; Color Urine Dark Yellow; Glucose Urine UA Negative (Negative); Leukocyte Esterase Urine Negative (Negative); Nitrite Urine Negative (Negative); PH 5.5 (5.0-9.0); Specific Gravity - Urine >= 1.030 (1.005-1.025); UPreg QC Valid YES; Urine Blood Negative (Negative); Urine Ketones Trace mg/dL (Negative); Urine Pregnancy NEGATIVE (NEGATIVE); Urine Protein Trace mg/dL (Neg-Trace)
[2024-07-20 18:36] LABS: Amphetamine Screen Urine POSITIVE (Not Detect); Barbiturates, Urine Not Detected (Not Detect); Benzodiazepines Screen Urine Not Detected (Not Detect); Buprenorphine Scr Positive (Not Detect); Cannabinoid Screen Urine POSITIVE (Not Detect); Cocaine Screen Urine Not Detected (Not Detect); Fentanyl, urine Not Detected (Not Detect); Methadone Screen, Urine Not Detected (Not Detect); Opiate Screen Urine Not Detected (Not Detect); Oxycodone Screen Urine Not Detected (Not Detect); Phencyclidine Screen Urine Not Detected (Not Detect)
[2024-07-20 18:39] LABS: COVID-19 Test Negative (Negative); IDNOW Serial# 55D5AD1C
[2024-07-20 18:42] LABS: Acetaminophen LAB < 3 mcg/mL (<30); Salicylate < 5.0 mg/dL (15-30)
[2024-07-20 18:44] LABS: Anion Gap 11 (12-20)
[2024-07-20 18:49] LABS: Alanine Aminotransferase 39 U/L (0-31); Albumin Level 4.3 g/dL (3.5-5.0); Alkaline Phosphatase 75 U/L (39-117); Aspartate Amino Transferase 44 U/L (5-31); Bilirubin Total 1.1 mg/dL (0.0-1.0); Blood Urea Nitrogen 16 mg/dL (9-16); Calcium 9.4 mg/dL (8.4-10.2); Carbon Dioxide 23 mmol/L (22-29); Chloride 112 mmol/L (96-108); Creatinine Clr Calc Pharmacy 93.4; Estimated Glomerular Filt Rate > 60; Ethanol < 10 mg/dL; Glucose Random 106 mg/dL (60-115); Potassium 3.8 mmol/L (3.3-5.1); Sodium 142 mmol/L (135-145); Total Protein 7.2 g/dL (6.5-8.0)
[2024-07-20] MEDS: Nicotine 21 MG PATCH.TD24 TRANSDERMA (19:05)
[2024-07-20] MEDS: Gabapentin 400 MG CAPSULE PO (20:03)
[2024-07-20] MEDS: Famotidine 20 MG TABLET PO (20:03)
--- OUTSIDE RECORDS SUMMARY | 2024-07-20 20:11 | XMS_ITS | Data Portability ---
Author Organization [employer] [facility], [place] - Formerly [facility], later [facility] Address [address] [place] [phone] Care Team Providers Care Postal Service Mail Processor Name Role Phone HIM CCA Referring Provider [phone] Assessment Encounter Date Assessment Date Assessment LastModified by Organization Details LastModified Time 10/05/2023 10/05/2023 I provided real -time medical direction via phone for this encounter, and was available for additional phone based assistance as needed. I have reviewed and agree with the Assessment and Plan as documented by the Head Mva Reactor Operator. We discussed the diagnostic uncertainty of home visits and the risk associated with this. The patient and her significant other who is her ROADWAY TECHNICIAN, Mat,t given the opportunity to ask questions. Advised if develops worsening CP, changes in radiation/uncont rolled sweating/severe SOB/turning blue/uncontrolle d n/v/d or black/bloody emesis or stool/ AMS/ syncope/ hi fever to call 911- they verbalized understanding of instruction [email or web address] Not available 10/05/2023 14:38:00 Plan of Treatment Reminders Order Date Submit Date Provider Last Modified By Organization Details Last Modified Time Details Appointments None recorded. Lab None recorded. Referral None recorded. Procedures None recorded. Surgeries None recorded. Imaging electrocard iogram 2023 024 [email or web address] 0 [facility], [address] [place] [address], [phone], 14:44:23 Medication Orders None recorded. Patient TargetsNo targets recorded. Patient InstructionsNo instructions recorded. Reason for Referral None Reported. Results Created Date Observation Date Name Description Value Unit Range Abnormal Flag Note LastModifiedBy Organization Detail LastModifiedTime 10/05/19 24 10/05/2023 elect mukesh vanggr am No observ ation record ed. [email or web address] [address], [id number], 10/05/2023 14:44:22 Result Notes None recorded. Procedures Surgical History None recorded. Imaging Results Imaging Date Name Status LastModified by Organization Details LastModified Time 10/05/2023 electrocardiogram completed [email or web address] [address], [id number], 10/05/2023 14:44:22 Procedure Notes None recorded. Medical Equipment None Reported. Allergies No known drug allergies Medications Name Sig Start Date Stop Date Status Note LastModified by Organization Details LastModified Time benztropine 0.5 mg tablet TAKE 1 TABLET BY MOUTH AT BEDTIME FOR 7 DAYS active Not Available Not Available No t Available haloperidol 5 mg tablet TAKE 1 TO 2 TABLETS BY MOUTH EVERY DAY active Not Available Not Available No t Available fluconazole 150 mg tablet TAKE 1 TABLET BY MOUTH 1 TIME. MAY REPEAT DOSE IN 72 HOURS. IF NO IMPROVEMENT IN SYMPTOMS active Not Available Not Available Not Available gabapentin 400 mg capsule TAKE ONE CAPSULE BY MOUTH THREE TIMES DAILY active Not Available Not Available Not Available clonazepam 1 mg tablet TAKE 1 TABLET BY MOUTH TWICE DAILY NEEDED FOR ANXIETY active Not Available Not Available No t Available cyanocobalam in (vit B-12) 1,000 mcg tablet TAKE 1 TABLET BY MOUTH ONCE A DAY active Not Available Not Available No t Available haloperidol 1 mg tablet TAKE 2 AND 1/2 TABLETS BY MOUTH AT BEDTIME FOR 7 DAYS active Not Available Not Available No t Available metronidazol e 500 mg tablet TAKE 1 TABLET BY MOUTH TWICE DAILY FOR 7 DAYS active Not Available Not Available No t Available sulfamethoxa zole 800 mg-trimethop rim 160 mg tablet TAKE 1 TABLET BY MOUTH TWICE DAILY active Not Available Not Available No t Available famotidine 20 mg tablet TAKE 1 TABLET BY MOUTH TWICE DAILY NEEDED FOR HEARTBURN OR INDIGESTION active Not Available Not Available Not Available benztropine 1 mg tablet TAKE 1 TABLET BY MOUTH EVERY DAY FOR 15 DAYS active Not Available Not Available No t Available gabapentin 300 mg capsule TAKE 2 CAPSULES BY MOUTH THREE TIMES DAILY active Not Available Not Available Not Available flurbiprofen 100 mg tablet TAKE 1 TABLET BY MOUTH THREE TIMES DAILY NEEDED FOR MODERATE PAIN active Not Available Not Available No t Available folic acid 1 mg tablet TAKE 1 TABLET BY MOUTH DAILY active Not Available Not Available Not Available buprenorphin e 8 mg-naloxone 2 mg sublingual film DISSOLVE 2 FILMS UNDER THE TONGUE DAILY EVERY MORNING active Not Available Not Available No t Available Banophen 50 mg capsule TAKE 1 CAPSULE BY MOUTH EVERY DAY AT BEDTIME NEEDED active Not Available Not Available No t Available naloxone 4 mg/actuation nasal spray CALL 911. SPR CONTENTS OF ONE SPRAYER (0.1ML) INTO ONE NOSTRIL. REPEAT IN 2-3 MIN IF SYMPTOMS OF OPIOID EMERGENCY PERSIST, ALTERNATE NOSTRILS active Not Available Not Available No t Available Vitals Date Recorded Respiratory rate Heart rate Body weight Body height Body temperature Oxygen saturation Oxygen saturation in Arterial blood by Pulse oximetry Systolic blood pressure Diastolic blood pressure Provider Name and Address Organization Details Last Updated DateTime 4 20 /min 112 /min 99621.8 4 g 152.4 cm 98.2 [degF] 92 % 92 % 92 mm[Hg] 57 mm[Hg] Not Available [facility] - production 4 12:15:53 Social History None recorded. Functional Status None recorded. Mental Status None recorded. Family History Nothing Reported. Medical History No medical history recorded. Gynecological HistoryNo gynecological history recorded. Obstetrics History GPAL:G 0 P 0 0 0 0 Past Encounters Encounter ID Performer Location Encounter Start Date Encounter Closed Date Diagnosis/Indication Diagnosis SNOMED-CT Code Diagnosis ICD10 Code Diagnosis Note [id number] Sandhya Garcia MD Main - [facility] [address] [place] [id number] 10/05/2023 12:15:43 10/08/2023 17:57:52 Chest pain 81310788 R07.9 I spoke with the patient and her S/O at length with the medic and I explained with the report of an abnormal cardiac stress test, early onset significan t CAD in women in her family and smoking that she is at risk of ACS, IA or sudden cardiac . I further explained that while her EKG does not show obvious ischemia, 1 EKG does not rule out an acute coronary event, and she needs further workup to determine if she needs emergency stenting. I also cautioned her and her S/O against taking medication that is not prescribed for her, even though he did it at 10 AM this morning to try and get her to sleep. The patient verbalized understand ing of the risk and adamantly refused to be transferre d to the ER. Both the medic and I suggested if her symptoms worsen to call 911, they verbalized understand ing of the. I also advised since her cardiology appointmen t is not till 10/14 that they call her PCP today to see if it can be moved up to next Sunday.Due to hypotensio n I cannot prescribe nitrates/I philipp and the patient states she was told not to take any aspirin due to her upcoming surgery, thus I did not give her any Constipation [id number] K5 9.00 Explained the need for compliance for her stool softeners. She could develop impaction or bowel obstructio n if she does not start moving her bowels- Health Concerns Section Related Observation LastModified by Organization Detai ls LastModified Time None Recorded Concern Status LastModified by Organization Details LastModified Time None Recorded Advance Directives Directive None Recorded Payers Encounter Date Sequence Insurance Name Policy Number Policy Fletcher Covered Member ID Fletcher Member ID Guarantor Name 10/05/2023 1 [facility] - DOS ON OR AFTER 2022 - DUAL ELIGIBLE - [employer] AND ONE CARE (MEDICARE REPLACEMENT/ADV ANTAGE - HMO) Valarie Wilian [id number] Valarie Chalino C[place] Notes Date Note Type Note Provider Name and Address Organization Details Recorded Time 10/05/2023 text/html HPI: Valarie is a 43 year old female with a history of myotonic dystrophy, restrictive lung disease, HF w/ mildly reduced EF, common variable immunodeficiency, hep C, COPD, anxiety/panic attacks, smoking, opioid dependence on agonist therapy, and chronic pain. Patient called into the office for heart problems . I spoke with Pricila. He tells me that Valarie has been having panic attacks and gets chest tightness which she calls chest pain . He then tells me that Valarie will complain of left arm pain, sometimes radiating down her arm in nature, but she sleeps on her left side. He tells me that on 10/14 at 3pm Valarie has an apt with gas mask assembler Dr Balwinder Quintana [address] [place] [address]. He tells me he helps reassure her by showing Valarie her pulse rate (71 during the time of our phone call). He tells me that he does think this is in her head . I did advise that if she is having what she is considering chest tightness/pain and arm pain that it would be ideal to have someone look at her to rule out cardiac issues. sending [facility] for a cardiac eval. ................... ................... ................... ................... ................... ................... ................... ........ CRC Nurse Triage Notes (Chelsie Cutler): Comments: HPI reviewed. ................... ................... ................... ................... ................... ................... ................... ........ Head Mva Reactor Operator Note From An Ryder: Sent to a call for a pt complaining of chest pain. SC8 arrives on scene, pt is alert and oriented, airway is patent. Pt is found sitting in bed, appears agitated and restless. Pt's significant other serves as primary senior sustainability advisor. Pt has history of COPD, Bipolar disorder, Myotonic Dystrophy, Opioid dependence, and Anxiety. Pt/SO states pt was supposed to have hysterectomy earlier this month due to large cyst (size of watermelon) in either ovaries or uterus. Pt complains of chronic abd pain due to cyst. Pt's suboxone was discontinued approx 2 weeks ago, and pt was given 4 days of Clonazepam. Pt reports having chest pain for several weeks. Pt states she had a stress test performed on Sunday, and abdominal surgery was postponed, due to need for multiple cardiac stents needing to be placed. Pt has f/u appt with gas mask assembler on 10/14, but no date scheduled for cardiac procedure. Pt complains of chronic headaches and chronic dizziness described as feeling off-balance.Pt also complains of chronic constipation (last BM x 1 week) exacerbation by lack of compliance taking stool softeners. Diffuse abdominal pain x 1 year. Pain in tailbone after fall approx 3 weeks ago. Pt's chest pain is described as substernal, sharp pain, radiating to left chest and left arm, worsening x 3 days after news she needs stents placed. Pt also complains of 3 episodes of diaphoresis accompanied by cp in the past few days. Pt/SO state pt has slept very little x 3 days. Pt denies current sob, but states she has had some sob recently, n/v/d, fever, or loc. Pt has been taking Ibuprofen and Tylenol approx BID for pain with no relief. Acetaminophen 1gm early this morning, Ibuprofen 800mg last take at approx 7:30 am. Pt's Maternal side has history of CAD/IA/ primarily in 40's (mother, aunt, and grandmother) BP:92/57, P:112, RR:20, SpO2:92% RA, T:98.2 (pt states BP and SpO2 are baseline); Head: unremarkable; Lung sounds: clear bilaterally; Chest: no tenderness noted; Abdomen: distention and diffuse tenderness at baseline; Back: no deformities noted; Extremities: no peripheral edema; Skin: pink, warm, dry; 12 lead ECG performed: uploaded to [facility] [employer]; Pt ambulates unassisted to/from bathroom and denies increased sob. C consulted and pt/SO are advised pt should be transported to ED for further eval/treatment. Pt adamantly refuses transport to ED. Pt's SO states he gave pt Lorazepam 2mg from his prescription at approx 10am today. SO cautioned and advised pt should only take medications prescribed for her. Pt/SO advised to contact PCP. Pt and SO advised of risks of refusing transport to ED. C explains concerns and limitations with eval/treatment at home. Pt continues refusing transport. Red flags re-discussed. Pt's SO provided with [facility] phone number. Pt/SO reminded they can call 911 at any time. Pt signs refusal form. Pt/SO have no further questions. ................... ................... ................... ................... ................... ................... ................... ........ Disposition: Fulfilled SEGMD: As above-patient is a smoker with a significant history of early CAD in female members of her family. Complicated by bipolar and severe anxiety. I do not have access to her [facility] records so I cannot verify the results of her cardiac ETT this week. Abrupt cessation of her Suboxone 2 weeks ago and now she no longer has clonazepam 1 mg twice daily, with stress of upcoming surgery has made this patient exceedingly anxious, understandably. She has not been sleeping and the insomnia and fatigue are exacerbating her symptoms. Sandhya Garcia MD [address] [facility],[address], [place], [phone], [employer] 10/05/2023 14:44:35 OBGyn Episode No OBEpisode recorded.
--- OUTSIDE RECORDS SUMMARY | 2024-07-20 20:11 | XMS_ITS | Encounter Summary ---
Author Organization [facility] Address [address] [place] [address] Care Team Providers Care Sports Cartoonist Name Role Phone Chantell Pagan MD Primary Care Provider + Encounter Details Date Type Department Care Team (Late st Contact Info) Description 05/21/2024 Lab Requisition [facility] - Main Lab [address] [facility] [place] [address] Nabor Tanner PA [address] [place] [address] Gross hematuria Social History Tobacco Use Types Packs/Day Years Used Date Smoking Tobacco: Every Day Cigarettes Smokeless Tobacco: Never Alcohol Use Standard Drinks/Week Comments Never 0 (1 standard drink = 0.6 oz pur e alcohol) Sex and Gender Information Value Date Recorded Sex Assigned at Not on file Gender Identity Not on file Sexual Orientation Not on file documented as of this encounter Plan of Treatment Not on file documented as of this encounter Procedures Procedure Name Priority Date/Time Associated Diagnosis Comments AP OUTSIDE CONSULT Routine 05/14/2024 12 :00 AM EST Gross hematuria documented in this encounter Results * Anatomic pathology outside consult (05/14/2024 12:00 AM EST) Final Diagnosis Urine, Voided: Negative for high grade urothelial carcinoma. Results of UroVysion fluorescence in situ hybridization (FISH) testing: CEP3: Normal CEP7: Normal CEP17: Normal LSI 9p21: Normal Interpretation: Normal profile Controls stained appropriately. Note: The results are intended as a screening device and should be interpreted in association with other clinical and pathological findings. 05/28/2024 4:27 PM EST [facility] Clinical Information [id number] Cytology/Urine FISH (now) 05/28/2024 4:27 PM [facility] Gross Description A. Urine, Voided, : [id number] Received 1 TP (CYTO) 1 TP (FISH) 05/28/2024 4:27 PM [facility] Disclaimer Unless otherwise specified, all tissue is 10% NB formalin fixed and paraffin embedded. 05/28/2024 4:27 PM [facility] Tissue Urine specimen from urethra / Unknown 05/14/2024 05/21/2024 10:27 AM EST [facility] Organization Address City/State/ZIP Co de Phone Number [facility] [address] [place], [place] [address] [phone] documented in this encounter Visit Diagnoses Diagnosis Gross hematuria documented in this encounter Care Teams Sports Cartoonist Relationship Specialty Start Date End Date Chantell Pagan MD [facility] [address] [place] [address] PCP - General 09/28/23 documented as of this encounter
[2024-07-20] MEDS: Melatonin 3 MG TABLET PO (20:27)
[2024-07-20] MEDS: LORazepam 1 MG TABLET 2 MG PO (23:05)
--- NOTE | 2024-07-20 23:07 | PC.NURSE ---
Took over IESHA Maldonado, medicated per aug, clean gown given and underwear.
[2024-07-21] VITALS (26 sets, daily range): BP systolic 94–131; BP diastolic 51–81; PULSE 84–135; RESP 12–26; TEMP 36.2–37.1; O2SAT 81–98
--- NOTE | 2024-07-21 | ECG_ITS ---
Test Reason : elevated heart rate Blood Pressure : */* mmHG Vent. Rate : 109 BPM Atrial Rate : 109 BPM P-R Int : 162 ms QRS Dur : 86 ms QT Int : 334 ms P-R-T Axes : 51 14 23 degrees QTcB Int : 449 ms Sinus tachycardia Septal infarct (cited on or before 21-Jul-2024) - could be related to body habitus and lead placement Abnormal ECG When compared with ECG of 21-Jul-2024 06:49, Questionable change in initial forces of Septal leads Referred By: Leonard Coello Electronically Signed By: AKHIL BELL
[2024-07-21] MEDS: HaloperidoL 5 MG TABLET 10 MG PO (01:14)
[2024-07-21] MEDS: diphenhydrAMINE HCL 25 MG CAPSULE 50 MG PO (01:14)
--- NOTE | 2024-07-21 01:16 | PC.NURSE ---
pt out of bed and redirected several time, medicated per mar.
--- NOTE | 2024-07-21 05:20 | MHC.EDTECH ---
EKG cancelled per MD
--- NOTE | 2024-07-21 06:52 | PC.NURSE ---
pt noted to be sleeping in no apparent distress throughout the night. no sob/wob noted. respirations even/unlabored. upon pt wakening, vital signs obtained displaying 81% on RA while being tachycardic at 140bpm. pt denies any sob/chest pain/palpitations/dizziness/lightheadedness. pt positioned upright to promote patent airway. vitals cart still displaying w/ decreased O2. pt immediately placed on 4L via NC w/ good effect. ekg performed by tech. charger/provider/RT made aware. pt pending xray. pt transitioned to ED4. 1:1 sitter present. plan of care ongoing.
--- NOTE | 2024-07-21 07:16 | PC.NURSE ---
Pt brought over from POD due to low SPO2 and tachycardia. Pt now on 6L O2 NC sating 88%, RT notified and coming to bedside. Pt having some SOB, cough noted. Reported her daughter was recently sick with pneumonia and she feels like she has pneumonia.
[2024-07-21] MEDS: Albuterol Sulfate 5 MG, Albuterol/Iprat 2.5/0.5MG 3 ML 3 ML INHALE (07:22)
[2024-07-21] MEDS: Folic Acid 1 MG TABLET PO (08:08)
[2024-07-21] MEDS: Gabapentin 400 MG CAPSULE PO ×4 (08:09→21:28)
[2024-07-21 08:38] LABS: Influenza A PCR NEGATIVE (Negative); Influenza B PCR NEGATIVE (Negative); Resp Syncy Virus RNA Qual PCR NEGATIVE (Negative); SARS COV2 PCR INHOUSE NEGATIVE (Negative)
--- NOTE | 2024-07-21 09:07 | PM.IMHP ---
History of Present Illness Date of Service: 07/21/24 Attending physician on admission: Alfie Cross Chief Complaint: Hypoxia Pt is a 44-year-old female with a PMH significant for?Multiple sclerosis, congenital immune deficiency, hepatitis C previously treated, polysubstance use disorder, anxiety, and depression who initially presented to the ED yesterday with insomnia, hallucinations secondary to lack of sleep, and increasing depression with SI. Pt reportedly had not been able to sleep for the past three days and had been hallucinating, seeing people that were not there. Denies auditory hallucinations. Pt also endorsed SI with plan to overdose. Pt apparently has not been taking her home medications for some time as PCP retired and she has not yet established with new care. In the ED pt was initially medically cleared and placed in overflow on physician observation for care team evaluation. This morning pt was noted to be hypoxic at 81% and tachycardic. Was moved back to the main ED where viral panel was negative but CXR showed likely LLL pneumonia. Pt herself reports had a wicked bad cold 1-1/2 weeks ago, though thought she was getting better. Smokes 1 pack daily, though notes chronic cough has worsened in the past 1-2 weeks and has been more productive than normal. Also notes increased fatigue, though has not been sleeping well recently. Chronic all-over body pain patient's ascribes to her MS at baseline. No fever or chills. Denies nausea or vomiting. Of note, pt reports was taken off buprenorphine in March 2024 as she was supposed to be transitioned to new medication for MS peguero management. Pt currently denies SI and denies previous SI, stating she was previously just tired and wanted inpatient psychiatric treatment which helped her greatly. In the ED pt was tachycardic up to 135, tachypneic up to 24, and hypoxic as low as 81% on RA. Labs were significant for Mild transaminitis who T bili 1.1, AST 44, and ALT 39, otherwise grossly unremarkable and around baseline for pt. Lactic acid WNL. No leukocytosis. Stable H&H. No significant electrolyte abnormalities. Renal function baseline. UA negative for UTI. Tested negative for flu, COVID, RSV. Tox screen positive for buprenorphine, amphetamines, and marijuana. CXR showed Bandlike atelectasis of right lower lobe and patchy opacity in left base likely infiltrate vs atelectasis. EKG demonstrated sinus tachycardia 109 without significant ischemic changes. Pt was treated with Doxycycline and ceftriaxone. Pt will be admitted to the hospital For treatment and further evaluation of acute hypoxic respiratory failure in the setting of pneumonia with sepsis. Review of Systems Review of Systems: Negative except for that which is stated in the HPI. [facility] Medical History Hx of hepatitis C Multiple sclerosis Routine history and physical examination of adult Social History Household Members: Significant Other Household Members Other:: 2 Housing: House Do you presently have visiting nurse or other home services: No Patient Tobacco Use Status: Current everyday Tobacco user Tobacco use type: Cigarette Cigarette Packs Per Day: 1 Cigarettes Per Day: 20.0 Years Smoked: 25 Smoked in Last 30 Days: No Second Hand Smoke Exposure: Yes Use of substances other than those prescribed or required for medical reasons: Yes Substance Use Type: Painkillers Advance Directives: No Advance Directives Information Provided: No Do you have a plan to hurt others: Specific Patient : No service: No Sexual orientation: Straight/Heterosexual Meds Allergies Allergy/AdvReac Type Severity Reaction Status Date / Time No Known Allergies Allergy Verified 07/20/24 17:04 Active Medications: Current Medications Famotidine (Famotidine 20 Mg Tablet) 20 mg PO BID PRN PRN Reason: upset stomach Last Admin: 07/20/24 20:03 Dose: 20 mg Folic Acid (Folic Acid 1 Mg Tablet) 1 mg PO DAILY [facility] Last Admin: 07/21/24 08:08 Dose: 1 mg Gabapentin (Gabapentin 400 Mg Capsule) 400 mg PO QID [facility] Last Admin: 07/21/24 08:09 Dose: 400 mg Lorazepam (Lorazepam 1 Mg Tablet) 1 mg PO TID PRN PRN Reason: Anxiety, agitation Melatonin (Melatonin 3 Mg Tablet) 3 mg PO BEDTIME PRN PRN Reason: Insomnia Last Admin: 07/20/24 20:27 Dose: 3 mg Home Medications ?Medication ?Instructions ?Recorded ?Confirmed ?Last Taken ?Type famotidine 20 mg tablet 20 mg PO BID PRN upset stomach 07/20/24 07/20/24 07/16/24 History folic acid 1 mg tablet 1 mg PO DAILY 07/20/24 07/20/24 07/16/24 History gabapentin 400 mg capsule 400 mg PO QID 07/20/24 07/20/24 07/16/24 History Physical Exam Vital Signs and Narrative: Vital Signs: Last Vital Signs Temp 98.3 F 07/21/24 07:00 Pulse 114 H 07/21/24 07:24 Resp 20 07/21/24 07:24 BP 114/74 07/21/24 06:52 Pulse Ox 90 L 07/21/24 08:04 O2 Del Method Nasal Cannula 07/21/24 08:04 O2 Flow Rate 6 07/21/24 08:04 BMI result Body Mass Index 30.7 Constitutional: Alert, in no acute distress. Mental Status: Oriented to person, place and time. Eyes: Pupils are equal, round, and reactive to light. Ear, Nose, and Throat: Oropharynx clear, mucous membranes moist. Ears and nose without deformities. Trachea midline. Respiratory: Diffuse wheezing and rhonchi bilaterally. Cardiovascular: S1, S2 regular rhythm tachycardic. No murmurs, rubs, or gallops. Gastrointestinal: Abdomen soft with mild diffuse tenderness. No distention. Normal bowel sounds. Neurologic: Cranial nerves II-XII are grossly intact bilaterally. No focal neurological deficits. Moves all extremities spontaneously. Skin: Warm, dry. Musculoskeletal: No cyanosis or clubbing. Extremities: No edema. Psychiatric: Normal mood and affect. Results Labs 07/20/24 18:16 07/20/24 18:16 Labs: Laboratory Results - last 24 hr 07/20/24 07/20/24 07/21/24 18:16 18:17 07:46 MCV 96.0 MCH 32.0 MCHC 33.3 RDW 14.7 Plt Count 161 MPV 10.5 Immature Gran % (Auto) 0.4 Neut % (Auto) 68.9 Lymph % (Auto) 23.3 [place] % (Auto) 6.0 Eos % (Auto) 1.0 Baso % (Auto) 0.4 Lymph # (Auto) 1.6 [place] # (Auto) 0.4 Eos # (Auto) 0.1 Baso # (Auto) 0.0 Abs Immat Gran (auto) 0.03 Absolute Neuts (auto) 4.8 Absolute Nucleated RBC 0.000 Nucleated RBC % (auto) 0.0 Anion Gap 11 L Estim Creat Clear Calc 93.4 Estimated GFR > 60 Random Glucose 106 Calcium 9.4 Total Bilirubin 1.1 H AST 44 H ALT 39 H Alkaline Phosphatase 75 Total Protein 7.2 Albumin 4.3 Urine Color Dark Yellow Urine Appearance Cloudy Urine pH 5.5 Ur Specific [place] >= 1.030 H Urine Protein Trace Urine Glucose (UA) Negative Urine Ketones Trace Urine Blood Negative Urine Nitrite Negative Ur Leukocyte Esterase Negative Urine Test NEGATIVE Salicylates < 5.0 L Urine Opiates Screen Not Detected Ur Buprenorphine Scrn Positive H Ur Oxycodone Screen Not Detected Urine Methadone Screen Not Detected Urine Fentanyl Screen Not Detected Acetaminophen < 3 Ur Barbiturates Screen Not Detected Ur Phencyclidine Scrn Not Detected Ur Amphetamines Screen POSITIVE H U Benzodiazepines Scrn Not Detected Urine Cocaine Screen Not Detected U Marijuana (THC) Screen POSITIVE H Ethyl Alcohol < 10 COVID-19 (JAMEL) Negative COVID-19 Clin Com See Note Influenza Type A (PCR) NEGATIVE Influenza Type B (PCR) NEGATIVE RSV RNA Qual (PCR) NEGATIVE SARS-CoV-2 RNA (RT-PCR) NEGATIVE Imaging Radiologist's Impressions: Impressions Chest X-Ray 07/21/24 06:48 IMPRESSION: Bandlike atelectasis right lower lobe. Patchy opacity left lung base likely infiltrate or atelectasis. Electronically signed by: Kit Dawson MD 07/21/2024 08:47 AM [facility] Assessment and Plan (1) Left lower lobe pneumonia: Status: Acute (2) Hypoxia: Status: Acute Plan Pt is a 44-year-old female with a PMH significant for?Multiple sclerosis, congenital immune deficiency, hepatitis C previously treated, polysubstance use disorder, anxiety, and depression who initially presented to the ED yesterday with insomnia, hallucinations secondary to lack of sleep, and increasing depression with SI. Pt was initially placed in physician observation where this morning she was noted to be desatting to 81% and tachycardic. Pt will be brought to the hospital floor for treatment and further evaluation of acute hypoxic respiratory failure in the setting of pneumonia with sepsis. Acute hypoxic respiratory failure in the setting of pneumonia with sepsis Pt desatting to 81% on RA, CXR w/LLL pneumonia, wheezing and rhonchi upon auscultation Meets sepsis criteria: tachycardic, tachypnea; lactic acid WNL Will treat ceftriaxone, doxycycline, started 07/21/2024 Likely also with reactive airway disease No formal pulmonary diagnosis, not on home inhalers or O2; smokes a pack a day Will treat with Solu-Medrol, breathing treatments, guaifenesin Titrate supplemental O2 >92, wean as tolerated Monitor respiratory status Transaminitis, mild Pt reports hx of gallstones No significant RUQ pain Trend LFTs, consider RUQ U/S if pain worsens Multiple sclerosis Not on home meds Complains of all-over body pain secondary to MS Analgesics for pain management Hx of polysubstance use disorder Not on Buprenorphine since March Apparently for medication change for MS pain? Addiction medicine consult, nav for pain management Mood disorder with SI Pt no longer endorses SI, denies previous SI statement Care team evaluation Sitter for now, likely will only need a camera on the floor Likely will need in-patient psychiatric placement once medically cleared Continue home mood stabalizers GERD Continue famotidine Full Code Attending:?Dr. Cross DVT Prophylaxis: Lovenox Pt will require a hospitalization of at least two nights for treatment of? acute hypoxic respiratory failure in the setting of pneumonia with sepsis. Pt will require hospital level care administration of IV antibiotics supplemental oxygen, IV steroids, and breathing treatments. Quality Stroke Does the patient have a stroke diagnosis?: No VTE Prior VTE?: No VTE Risk Level:: Medical - moderate - high VTE Device Contraindication: Treatment Not Indicated VTE Drug Contraindication: N/A - Med Ordered
[2024-07-21] MEDS: cefTRIAXone sodium 1 GM VIAL IVPUSH (09:15)
[2024-07-21] MEDS: Doxycycline Monohydrate 100 MG CAPSULE PO (09:15)
--- NOTE | 2024-07-21 09:22 | PHA.MEDREC ---
Pharmacy Consult ? Medication Reconciliation Pharmacy has reviwed the medication reconciliation completed by nursing, all claims matched.
[2024-07-21] MEDS: Ketorolac Tromethamine 30 MG/ML VIAL IVPUSH (09:51)
[2024-07-21 09:52] LABS: Lactic Acid 0.9 mmol/L (0.5-2.0)
[2024-07-21] MEDS: methylPREDNISolone Sod Succ 125 MG/2 ML VIAL IVPUSH (09:52)
--- NOTE | 2024-07-21 10:01 | PC.NURSE ---
This RN attempted to place pt on oxymask, pt refused, only allowing NC. Sat 88-92% on 6L NC, provider aware. No acute SOB
[2024-07-21] MEDS: Enoxaparin Sodium 40 MG/0.4 ML SYRINGE SUBCUT (10:41)
[2024-07-21 11:07] LABS: Troponin-I High Sensitivity < 2.7 ng/L (<3.5-17.0)
--- NOTE | 2024-07-21 11:26 | MHC.EDTECH ---
Patent observed falling asleep while eating potato chips and drinking soda.This tech woke patient easily. Patient appeared to fall asleep again and then spilt ice and soda on self . When awake patient continues to ask for anxiety medication stating her anxiety is really bad .Once patient reassured that RN is aware she appears to fall back to sleep. RN aware .
[2024-07-21] MEDS: levalbuterol HCL 1.25 MG/3 ML VIAL.NEB INHALE ×4 (12:11→23:16)
--- NOTE | 2024-07-21 14:26 | PC.NURSE ---
Pt continues to be between 88-92% on NC 6L. Lethargic.
--- NOTE | 2024-07-21 14:57 | MHC.EDTECH ---
Patient assisted to bedside commode voided moderate amount of dark cathy colored urine. Patient assisted back to bed complaining of shortness of breath. O2 SATS at 91 % via nasal cannula at 6L . RN aware
[2024-07-21] MEDS: 0.9 % Sodium Chloride Flush 3 ML SYRINGE IVFLUSH ×2 (16:13→19:59)
[2024-07-21] MEDS: Nicotine 21 MG PATCH.TD24 TRANSDERMA (19:58)
[2024-07-21] MEDS: methylPREDNISolone Sod Succ 40 MG/ML VIAL IVPUSH (21:29)
[2024-07-21] MEDS: LORazepam 1 MG TABLET PO (21:29)
[2024-07-21] MEDS: iohexoL 350 MG/ML 100 ML INFUS..BTL 65 ML IV (21:31)
[2024-07-21] MEDS: Doxycycline Hyclate 100 MG in 0.9 % Sodium Chloride 250 ML 166.67 MG IV (21:38)
[2024-07-21 21:49] LABS: ABG Base Excess -0.2 mmol/L; ABG HCO3 24 mmol/L (22-26); ABG pCO2 41 mmHg (32-45); ABG pH 7.38 (7.35-7.45); ABG pO2 64 mmHg (83-108)
--- NOTE | 2024-07-21 21:59 | PM.EVENT ---
Event Note Date of Service: 07/21/24 Event Note: Patient with significant hypoxia/ A-a gradient, though asymptomatic, some rhonchi and basilar crackles but decent air movement, CTA of chest negative for pulmonary embolism but does show bilateral lower lobe consolidations. ? Aspiration pneumonia. Continue IV antibiotics, we will transfer to telemetry for high-flow, check respiratory viral panel, speech eval. Time Spent With Patient Time: Total time managing care of this patient today ____ minutes.
[2024-07-21] MEDS: Acetaminophen 325 MG TABLET 650 MG PO (22:15)
--- NOTE | 2024-07-21 22:30 | PC.NURSE ---
Assumed care of patient at 19:00. Patient was admitted earlier today for SI/psych, pneumonia per ED RN handoff report review. Patient had a 1:[address] since assuming care[address] Belongings found in room were placed in locker on s4 per policy. Pt was A&Ox4 for editorial writer and denied SI/HI or active plan for editorial writer on evening assessment. Patient was on 7L regular nasal cannula on assuming care. Evening vitals showed spo2 88%. Insurance Analyst to bedside, spo2 reassessed showing 88-89% on portable vitals cart. O2 was increased to titrate per ordered oxygen administration protocol and MD notified. Patient denied sob and breathing was even and unlabored without distress RR upper teens to 20. Insurance Analyst discussed trying to wear oxymask or non-rebreather with the patient though the patient declined any sort of mask . IS was educated on (pt acheiving 1000 with education due to poor technique) as well as aerobika provided and educated on use. Covering Dr. Dia was made aware of increasing o2 requirements and patient refusal of alternative therapies besides nc. Patient was placed on continuous spo2 monitoring and scheduled xopenex was given by respiratory. CT chest to r/o PE was ordered by . Consent was obtained, and a #20 IV was placed in left AC for CT. When attempting to transfer the patient from the bed to the wheelchair, the patient's spo2 was noted to drop to 81%, requiring an increase in o2 to 15L [place] nc with improvement to 88-90%. Patient continued to deny SOB, and breathing remained even and unlabored without distress. MD was made aware and agreed with plan to proceed with obtaining CT scan as pt o2 improved and pt denied symptoms. Patient went down to CT with motor transport inspector at 21:00 on 15L [place] nc, tolerated. MD also placed an order for an ABG which was obtained after return from CT scan. ABG results showed hypoxia (see results for full details); results discussed with respiratory, MD, and patient. Patient continued to refuse oxygen masks though was discussed and pt was agreeable to HFNC, per MD and RT recommendations. Level of care escalated to med-tele due to requirement of HFNC. Nursing tile layer supervisor was made aware. MD written order to give prn tylenol for presumed fever, as the patient felt hot to touch though refused rectal temperature despite education on most accurate route, and patient was eating and drinking frequently so unable to obtain accurate po temp. Pt was agreeable to axillary temp which was 98.6 at 21:35. Prn tylenol given. Handoff report given to RN on s4 assuming care. Patient was transferred in stable condition with sitter at 22:23.
[2024-07-21 22:34] LABS: ABG Refer to POC result
[2024-07-21] MEDS: Melatonin 3 MG TABLET PO (23:22)
[2024-07-22] VITALS (14 sets, daily range): BP systolic 105–114; BP diastolic 58–85; PULSE 76–124; RESP 16–20; TEMP 36.4–36.7; O2SAT 91–96
[2024-07-22] MEDS: levalbuterol HCL 1.25 MG/3 ML VIAL.NEB INHALE ×5 (03:24→19:56)
[2024-07-22 08:28] LABS: Alanine Aminotransferase 40 U/L (0-31); Albumin Level 3.6 g/dL (3.5-5.0); Alkaline Phosphatase 66 U/L (39-117); Anion Gap 9 (12-20); Aspartate Amino Transferase 31 U/L (5-31); Bilirubin Total 0.3 mg/dL (0.0-1.0); Blood Urea Nitrogen 15 mg/dL (9-16); Calcium 8.7 mg/dL (8.4-10.2); Carbon Dioxide 25 mmol/L (22-29); Chloride 111 mmol/L (96-108); Creatinine Clr Calc Pharmacy 113.8; Estimated Glomerular Filt Rate > 60; Glucose Random 153 mg/dL (60-115); Sodium 141 mmol/L (135-145)
[2024-07-22 09:08] LABS: MANUAL DIFF FLAG NO
[2024-07-22 09:13] LABS: Basophils Percent Auto 0.2 % (0-2); Hematocrit 43.4 % (37.0-47.0); Hemoglobin 14.3 g/dl (12.0-16.0); Imm Gran Abs Auto 0.07 X10*3/uL (0.00-0.03); Imm Gran Pct Auto 0.6 % (0.0-0.4); Lymphocytes Absolute Auto 0.9 X10*3/uL (1.2-4.9); Lymphocytes Percent Auto 8.2 % (20-40); Mean Corpuscular HGB Conc 32.9 g/dl (31.0-35.0); Mean Corpuscular Hemoglobin 32.6 pg (27.0-33.0); Mean Corpuscular Volume 99.1 fL (80.0-98.0); Mean Platelet Volume 10.9 fL (9.4-12.3); Monocytes Absolute Auto 0.2 X10*3/uL (0.1-1.2); Monocytes Percent Auto 1.7 % (2-11); Neutrophils Absolute Auto 9.9 x10*3/uL (2.0-8.3); Neutrophils Percent Auto 89.3 % (45-73); Platelet Count 139 X10*3/uL (160-400); Red Blood Count 4.38 X10*6/uL (4.20-5.50); Red Cell Distribution Width 14.9 % (11.0-16.0); White Blood Count 11.1 X10*3/uL (4.8-10.8)
--- NOTE | 2024-07-22 09:51 | MHC.CM.PN ---
IMM 07/22/24, PT W/PNA/HYPOXIA, CM MET W/PT WHO HAS A 1:1 SITTER D/T SI, PT DOES REPORT SHE WOULD LIKE TO DC TO [facility] FOR IPLOC, PT REPORTS SHE LIVES W/HER S.O., HAS A CANE AT HOME THAT SHE DOES NOT USE, [employer] DIE CASTING MACHINE OPERATOR HRS HOWEVER CURRENTLY DOES NOT RECALL HOW MANY HOURS, PT REPORTS SHE NEEDS A NEW PCP AND DENTIST, PT AWARE WE DO NOT ASSIST W/DENTAL APPTS AND WAS GIVEN A PAMPHLET W/[facility] PROVIDERS W/NAME OF NEW PROVIDER CARLOTTA ROSA ADDED AND INSTRUCTED TO ASK THE SW ON M5 OR OTHER UNIT TO ASSIST W/MAKING NEW PCP APPT. PT ALSO EDUCATED ON HCP'S AND REPORTED SHE WOULD LIKE TO COMPLETE ONE NAMING HER S.O. NANETTE MASON [phone] HER [facility] AND NO ALTERNATE, HCP TYPED UP ON CAREPORT HOWEVER PT WILL NOT SIGN UNTIL S.O. BRINGS IN HER EYE GLASSES SHE CAN NOT READ DOCUMENT.
[2024-07-22 10:09] LABS: ABG HCO3 23 mmol/L (22-26); ABG pCO2 34 mmHg (32-45); ABG pH 7.44 (7.35-7.45); ABG pO2 102 mmHg (83-108)
[2024-07-22] MEDS: methylPREDNISolone Sod Succ 40 MG/ML VIAL IVPUSH ×2 (10:17→20:27)
--- NOTE | 2024-07-22 10:17 | HO.ADDICTCON ---
History of Present Illness Date of Service: 07/22/24 Chief Complaint: Pneumonia Hypoxia Reason for Consult: ? restart buprenorphine for pain Sources of Information: patient interviewed and chart reviewed HPI Narrative: Patient is a 44 year old female medically admitted pneumonia and acute respiratory failure. Consult requested as patient reporting ongoing pain (due MS) and previously prescribed buprenorphine. Patient seen in room 470. She is awake, alert, engaged in interview. [place] [address], patient comfortable and speaking in full clear sentences. She reports she has been been in recovery from opiate use for over 20 years . She acknowledges previously being prescribed Suboxone via [facility], and states that she stopped taking it because she did not feel it was helping with her pain any longer Last rx filled March 2024 She states that she gets her pain medications from the emergency room. I will be seen, and then the pills they give me last me for a long time . Limited insight into how this is not the most appropriate use of the ED, however also unclear if this is an accurate report as there is no history on [facility] for prescribed opiates, aside from one script filled November 2023 for oxycodone She denies any substance use overall. Denies any history of overdose Family history of substance use with report that her sister passed from opiate overdose UDS+ buprenorphine and amphetamines No opiates administered during this admission Does not appear to be experiencing any type of opiate withdrawal Past Psychiatric History: Denies any hx of inpatient hospitalizations. Does not have outpatient providers. Reports tried therapy but it didn't work . Review of Systems Constitutional: Reports as per HPI (overall pain ), Reports difficulty sleeping, Reports lethargy and Reports weakness Reports weakness Diagnostics Vital Signs (24Hr): Vital Signs - 24 hr 07/21/24 11:22 07/21/24 12:02 07/21/24 12:12 Temperature 98.7 F Pulse Rate 102 H 103 H Respiratory Rate 16 18 Blood Pressure 110/68 Pulse Oximetry 87 L 91 L Oxygen Delivery Method Nasal Cannula Oxymask Oxygen Flow Rate 6 10 Fraction of Inspired Oxygen 07/21/24 13:35 07/21/24 15:46 07/21/24 16:21 Temperature Pulse Rate 118 H 84 99 Respiratory Rate 20 12 12 Blood Pressure 108/67 98/53 L 94/51 L Pulse Oximetry 90 L 91 L 89 L Oxygen Delivery Method Nasal Cannula Nasal Cannula Nasal Cannula Oxygen Flow Rate 6 6 6 Fraction of Inspired Oxygen 07/21/24 16:34 07/21/24 17:44 07/21/24 18:31 Temperature 97.5 F 97.3 F Pulse Rate 101 H 115 H Respiratory Rate 16 18 Blood Pressure 100/58 L 110/68 Pulse Oximetry 90 L 88 L 90 L Oxygen Delivery Method Nasal Cannula Nasal Cannula Nasal Cannula Oxygen Flow Rate 6 6 Fraction of Inspired Oxygen 07/21/24 19:11 07/21/24 20:09 07/21/24 20:52 Temperature 97.5 F Pulse Rate 106 H 108 H Respiratory Rate 18 16 18 Blood Pressure 104/67 Pulse Oximetry 88 L 89 L Oxygen Delivery Method Nasal Cannula Nasal Cannula Oxygen Flow Rate 7 7 Fraction of Inspired Oxygen 07/21/24 20:58 07/21/24 21:35 07/21/24 22:20 Temperature 98.6 F Pulse Rate Respiratory Rate 20 18 20 Blood Pressure Pulse Oximetry 92 93 Oxygen Delivery Method Nasal Cannula Nasal Cannula Nasal Cannula Oxygen Flow Rate 15 15 15 Fraction of Inspired Oxygen 07/21/24 22:46 07/21/24 23:08 07/21/24 23:17 Temperature 97.2 F Pulse Rate 104 H Respiratory Rate 26 H 18 18 Blood Pressure 131/73 Pulse Oximetry 98 Oxygen Delivery Method High Flow Nasal Cannula Oxygen Flow Rate 95 Fraction of Inspired Oxygen 40 07/21/24 23:17 07/22/24 03:25 07/22/24 03:25 Temperature Pulse Rate 104 H 124 H Respiratory Rate 18 20 20 Blood Pressure Pulse Oximetry Oxygen Delivery Method Oxygen Flow Rate Fraction of Inspired Oxygen 07/22/24 03:28 07/22/24 07:36 07/22/24 08:18 Temperature 97.5 F 98.1 F Pulse Rate 93 96 Respiratory Rate 18 18 18 Blood Pressure 110/58 L 111/71 Pulse Oximetry 93 92 Oxygen Delivery Method High Flow Nasal Cannula High Flow Nasal Cannula Oxygen Flow Rate 30 30 Fraction of Inspired Oxygen 80 80 07/22/24 08:18 Temperature Pulse Rate 96 Respiratory Rate 18 Blood Pressure Pulse Oximetry Oxygen Delivery Method Oxygen Flow Rate Fraction of Inspired Oxygen BMI result Body Mass Index 30.7 Labs 07/22/24 06:29 07/22/24 06:29 Labs: Laboratory Results - last 48 hr 07/20/24 07/20/24 07/21/24 18:16 18:17 07:46 WBC 7.0 RBC 5.03 D Hgb 16.1 H D Hct 48.3 H MCV 96.0 MCH 32.0 MCHC 33.3 RDW 14.7 Plt Count 161 MPV 10.5 Immature Gran % (Auto) 0.4 Neut % (Auto) 68.9 Lymph % (Auto) 23.3 Person % (Auto) 6.0 Eos % (Auto) 1.0 Baso % (Auto) 0.4 Lymph # (Auto) 1.6 Person # (Auto) 0.4 Eos # (Auto) 0.1 Baso # (Auto) 0.0 Abs Immat Gran (auto) 0.03 Absolute Neuts (auto) 4.8 Absolute Nucleated RBC 0.000 Nucleated RBC % (auto) 0.0 Hold Purple Top O2 Saturation ABG pH at Pt Temp ABG pCO2 at Pt Temp ABG pO2 at Pt Temp ABG HCO3 ABG Base Excess (Actual) Sodium 142 Potassium 3.8 Chloride 112 H Carbon Dioxide 23 Anion Gap 11 L BUN 16 Creatinine 0.67 Estim Creat Clear Calc 93.4 Estimated GFR > 60 Random Glucose 106 Lactic Acid Calcium 9.4 Total Bilirubin 1.1 H AST 44 H ALT 39 H Alkaline Phosphatase 75 Troponin I High Sens Total Protein 7.2 Albumin 4.3 Urine Color Dark Yellow Urine Appearance Cloudy Urine pH 5.5 Ur Specific [place] >= 1.030 H Urine Protein Trace Urine Glucose (UA) Negative Urine Ketones Trace Urine Blood Negative Urine Nitrite Negative Ur Leukocyte Esterase Negative Urine Test NEGATIVE Salicylates < 5.0 L Urine Opiates Screen Not Detected Ur Buprenorphine Scrn Positive H Ur Oxycodone Screen Not Detected Urine Methadone Screen Not Detected Urine Fentanyl Screen Not Detected Acetaminophen < 3 Ur Barbiturates Screen Not Detected Ur Phencyclidine Scrn Not Detected Ur Amphetamines Screen POSITIVE H U Benzodiazepines Scrn Not Detected Urine Cocaine Screen Not Detected U Marijuana (THC) Screen POSITIVE H Ethyl Alcohol < 10 COVID-19 ([facility]) Negative COVID-19 Clin Com See Note Influenza Type A (PCR) NEGATIVE Influenza Type B (PCR) NEGATIVE RSV RNA Qual (PCR) NEGATIVE SARS-CoV-2 RNA (RT-PCR) NEGATIVE 07/21/24 07/21/24 07/21/24 09:14 10:27 21:37 WBC RBC Hgb Hct MCV MCH MCHC RDW Plt Count MPV Immature Gran % (Auto) Neut % (Auto) Lymph % (Auto) Person % (Auto) Eos % (Auto) Baso % (Auto) Lymph # (Auto) Person # (Auto) Eos # (Auto) Baso # (Auto) Abs Immat Gran (auto) Absolute Neuts (auto) Absolute Nucleated RBC Nucleated RBC % (auto) Hold Purple Top O2 Saturation 92.0 ABG pH at Pt Temp 7.38 ABG pCO2 at Pt Temp 41 ABG pO2 at Pt Temp 64 L ABG HCO3 24 ABG Base Excess (Actual) -0.2 Sodium Potassium Chloride Carbon Dioxide Anion Gap BUN Creatinine Estim Creat Clear Calc Estimated GFR Random Glucose Lactic Acid 0.9 Calcium Total Bilirubin AST ALT Alkaline Phosphatase Troponin I High Sens < 2.7 Total Protein Albumin Urine Color Urine Appearance Urine pH Ur Specific [place] Urine Protein Urine Glucose (UA) Urine Ketones Urine Blood Urine Nitrite Ur Leukocyte Esterase Urine Test Salicylates Urine Opiates Screen Ur Buprenorphine Scrn Ur Oxycodone Screen Urine Methadone Screen Urine Fentanyl Screen Acetaminophen Ur Barbiturates Screen Ur Phencyclidine Scrn Ur Amphetamines Screen U Benzodiazepines Scrn Urine Cocaine Screen U Marijuana (THC) Screen Ethyl Alcohol COVID-19 ([facility]AMEL) COVID-19 Clin Com Influenza Type A (PCR) Influenza Type B (PCR) RSV RNA Qual (PCR) SARS-CoV-2 RNA (RT-PCR) 07/22/24 07/22/24 06:29 09:57 WBC 11.1 H RBC 4.38 Hgb 14.3 Hct 43.4 MCV 99.1 H MCH 32.6 MCHC 32.9 RDW 14.9 Plt Count 139 L MPV 10.9 Immature Gran % (Auto) 0.6 H Neut % (Auto) 89.3 H Lymph % (Auto) 8.2 L Person % (Auto) 1.7 L Eos % (Auto) 0.0 Baso % (Auto) 0.2 Lymph # (Auto) 0.9 L Person # (Auto) 0.2 Eos # (Auto) 0.0 Baso # (Auto) 0.0 Abs Immat Gran (auto) 0.07 H Absolute Neuts (auto) 9.9 H Absolute Nucleated RBC 0.000 Nucleated RBC % (auto) 0.0 Hold Purple Top SEE NOTE O2 Saturation 100.0 ABG pH at Pt Temp 7.44 ABG pCO2 at Pt Temp 34 ABG pO2 at Pt Temp 102 ABG HCO3 23 ABG Base Excess (Actual) 0.0 Sodium 141 Potassium 4.0 Chloride 111 H Carbon Dioxide 25 Anion Gap 9 L BUN 15 Creatinine 0.55 Estim Creat Clear Calc 113.8 Estimated GFR > 60 Random Glucose 153 H Lactic Acid Calcium 8.7 D Total Bilirubin 0.3 AST 31 ALT 40 H Alkaline Phosphatase 66 Troponin I High Sens Total Protein 6.0 L Albumin 3.6 Urine Color Urine Appearance Urine pH Ur Specific [place] Urine Protein Urine Glucose (UA) Urine Ketones Urine Blood Urine Nitrite Ur Leukocyte Esterase Urine Test Salicylates Urine Opiates Screen Ur Buprenorphine Scrn Ur Oxycodone Screen Urine Methadone Screen Urine Fentanyl Screen Acetaminophen Ur Barbiturates Screen Ur Phencyclidine Scrn Ur Amphetamines Screen U Benzodiazepines Scrn Urine Cocaine Screen U Marijuana (THC) Screen Ethyl Alcohol COVID-19 ([facility]) COVID-19 Clin Com Influenza Type A (PCR) Influenza Type B (PCR) RSV RNA Qual (PCR) SARS-CoV-2 RNA (RT-PCR) Imaging Radiology Impressions: ITS Impressions Chest X-Ray 07/21/24 06:48 IMPRESSION: Bandlike atelectasis right lower lobe. Patchy opacity left lung base likely infiltrate or atelectasis. Electronically signed by: Kit Dawson MD 07/21/2024 08:47 AM EST RP Chest X-Ray 07/22/24 09:30 IMPRESSION: Overall improved aeration since prior examination. Probable atelectasis, lung bases. Probable mild interstitial lung edema. Electronically signed by: Nikolas Castillo MD 07/22/2024 10:12 AM EST RP Mental Status Exam Mental Status Exam Patient Appearance: Appropriate Level of Consciousness: Awake, Appropriate and Alert Patient Behavior: Appropriate and Talkative Mood Description: Calm Affect Description: Calm Speech Pattern: Clear Hallucinations: None Thought Process: Intact Thought Content: positive for Intact Judgement: Fair Medications Medications Current Medications Acetaminophen (Acetaminophen 325 Mg Tablet) 650 mg PO Q6H PRN PRN Reason: Pain, Mild 1-3,fever,headache Last Admin: 07/21/24 22:15 Dose: 650 mg Calcium Carbonate (Calcium Carbonate 750 Mg Tab.Chew) 750 mg PO Q4H PRN PRN Reason: Heartburn Ceftriaxone Sodium (Ceftriaxone Sodium 1 Gm Vial) 1 gm IVPUSH Q24H [facility] Enoxaparin Sodium (Enoxaparin Sodium 40 Mg/0.4 Ml Syringe) 40 mg SUBCUT Q24H [facility] Last Admin: 07/21/24 10:41 Dose: 40 mg Famotidine (Famotidine 20 Mg Tablet) 20 mg PO BID PRN PRN Reason: upset stomach Last Admin: 07/20/24 20:03 Dose: 20 mg Folic Acid (Folic Acid 1 Mg Tablet) 1 mg PO DAILY [facility] Last Admin: 07/21/24 08:08 Dose: 1 mg Gabapentin (Gabapentin 400 Mg Capsule) 400 mg PO QID [facility] Last Admin: 07/21/24 21:28 Dose: 400 mg Guaifenesin/Dextromethorphan (Guaifenesin Dm 200/20/10 Ml 10 Ml Syrup) 10 ml PO Q4H PRN PRN Reason: Cough Doxycycline Hyclate 100 mg/ (Sodium Chloride) 250 mls @ 166.67 mls/hr IV Q12H [facility] Last Infusion: 07/21/24 23:17 Dose: Infused Levalbuterol HCl (Levalbuterol Hcl 1.25 Mg/3 Ml Vial.Neb) 1.25 mg INHALE Q4H PRN PRN Reason: Shortness of Breath/Wheezing Levalbuterol HCl (Levalbuterol Hcl 1.25 Mg/3 Ml Vial.Neb) 1.25 mg INHALE RQ4H [facility] Last Admin: 07/22/24 08:37 Dose: 1.25 mg Lorazepam (Lorazepam 1 Mg Tablet) 1 mg PO TID PRN PRN Reason: Anxiety, agitation Last Admin: 07/21/24 21:29 Dose: 1 mg Magnesium Hydroxide (Milk Of Magnesia 30 Ml Oral.Susp) 30 ml PO DAILY PRN PRN Reason: Constipation Melatonin (Melatonin 3 Mg Tablet) 3 mg PO BEDTIME PRN PRN Reason: Insomnia Last Admin: 07/21/24 23:22 Dose: 3 mg Methylprednisolone Sodium Succinate (Methylprednisolone Sod Succ 40 Mg/Ml Vial) 40 mg IVPUSH Q12H [facility] Last Admin: 07/21/24 21:29 Dose: 40 mg Nicotine (Nicotine 21 Mg Patch.Td24) 21 mg TRANSDERMA DAILY [facility] Ondansetron HCl (Ondansetron Hcl 4 Mg/2 Ml Vial) 4 mg IVPUSH Q8H PRN PRN Reason: Nausea and Vomiting Sodium Chloride (0.9 % Sodium Chloride Flush 3 Ml Syringe) 3 ml IVFLUSH QSHIFT [facility] Last Admin: 07/21/24 19:59 Dose: 3 ml Allergies Allergies Allergy/AdvReac Type Severity Reaction Status Date / Time No Known Allergies Allergy Verified 07/20/24 17:04 Assessment & Plan Assessment & Plan (1) Opioid dependence: Status: Acute Code(s): F11.20 - Opioid dependence, uncomplicated Assessment and Plan: Per her report, has been in recovery from OUD for many years. Denies any active opiate use, and declines restart of bupe to possibly address reported pain Patient politely declined any need for recovery supports Receptive to information regarding overdose prevention, including avoiding the use of illicit pills has naloxone at home no additional follow up needed at this time, please reconsult if needed Total time managing care of this patient today __40__ minutes. PMFSH Past Medical History Medical History Hx of hepatitis C Multiple sclerosis Routine history and physical examination of adult Social History Social History Household Members: Significant Other Household Members Other:: 2 Housing: House Do you presently have visiting nurse or other home services: Yes ([facility]) Comment: 1:[address] on assuming care Patient Tobacco Use Status: Current everyday Tobacco user Tobacco use type: Cigarette Cigarette Packs Per Day: 1 Cigarettes Per Day: 20.0 Years Smoked: 25 Smoked in Last 30 Days: Yes Patient Interested in Nicotine Replacement: Yes Patient Given Instructions on How to Stop Smoking: No Second Hand Smoke Exposure: No Use of substances other than those prescribed or required for medical reasons: Yes Substance Use Type: Marijuana Substance Use Frequency: Daily Currently Displaying Signs/Symptoms of Drug Intoxication Withdrawal: No Any prior treatment program specific to substance use: No Have you been hit, kicked, punched, or otherwise hurt by someone within the past year? If so, by whom?: No Do you feel safe in your current relationship?: Yes Is there a partner from a previous relationship who is making you feel unsafe now?: No Are you made to feel afraid or neglected: No Spiritual Healthcare Practices: spiritism Advance Directives: No Advance Directives Information Provided: No Do you have a plan to hurt others: No Plan Recently lost weight without trying: No Eating poorly because of decreased appetite: Yes Nutrition Risks: Dental problems Patient : No : No Poor oral hygiene: No service: No Sexual orientation: Straight/Heterosexual
[2024-07-22] MEDS: 0.9 % Sodium Chloride Flush 3 ML SYRINGE IVFLUSH ×3 (10:20→20:32)
[2024-07-22] MEDS: Doxycycline Hyclate 100 MG in 0.9 % Sodium Chloride 250 ML 166.67 MG IV (10:21)
[2024-07-22] MEDS: cefTRIAXone sodium 1 GM VIAL IVPUSH (10:23)
[2024-07-22] MEDS: Folic Acid 1 MG TABLET PO (10:26)
[2024-07-22] MEDS: Nicotine 21 MG PATCH.TD24 TRANSDERMA (10:26)
[2024-07-22] MEDS: Gabapentin 400 MG CAPSULE PO ×4 (10:26→20:27)
[2024-07-22] MEDS: Enoxaparin Sodium 40 MG/0.4 ML SYRINGE SUBCUT (10:36)
--- NOTE | 2024-07-22 10:50 | HO.PM.IMPN ---
Subjective Subjective Date of Service: 07/22/24 Interval History: f/u on acute respiratory failure with hypoxia Overnight was put on highflow due to worsening hypoxia, She is denying SI Physical Exam Vital Signs: Vital Signs: Last Vital Signs Temp 98.1 F 07/22/24 07:36 Pulse 96 07/22/24 08:18 Resp 18 07/22/24 08:18 BP 111/71 07/22/24 07:36 Pulse Ox 92 07/22/24 07:36 O2 Del Method High Flow Nasal C annula 07/22/24 07:36 O2 Flow Rate 30 07/22/24 07:36 FiO2 80 07/22/24 07:36 BMI result Body Mass Index 30.7 Const: Other: Appearance: Alert. Oriented X3. No acute distress. Neck: Normal inspection. Neck supple. No lymph nodes noted. No crepitus CVS: Normal heart rate and rhythm. Pulses normal. Normal S1 and S2 Respiratory: No respiratory distress. Breath sounds normal. No Wheezing. No rales Abdomen: Soft and nontender. No rigidity. No distention. Skin: Skin warm and dry. Normal skin color. Normal skin turgor. Extremities: No lower extremity edema. No Lacerations. No Rash Neuro: Oriented X 3. No motor deficit. No sensory deficit. Moving all extremities. No slurred speech. CN 2 through 12 grossly intact Psych: calm, cooperative, normal affect Objective Data Active Medications Acetaminophen (Acetaminophen 325 Mg Tablet) 650 mg PO Q6H PRN PRN Reason: Pain, Mild 1-3,fever,headache Last Admin: 07/21/24 22:15 Dose: 650 mg Documented By: RISSA Calcium Carbonate (Calcium Carbonate 750 Mg Tab.Chew) 750 mg PO Q4H PRN PRN Reason: Heartburn Ceftriaxone Sodium (Ceftriaxone Sodium 1 Gm Vial) 1 gm IVPUSH Q24H [facility] Last Admin: 07/22/24 10:23 Dose: 1 gm Documented By: SARAH Enoxaparin Sodium (Enoxaparin Sodium 40 Mg/0.4 Ml Syringe) 40 mg SUBCUT Q24H [facility] Last Admin: 07/22/24 10:36 Dose: 40 mg Documented By: SARAH Famotidine (Famotidine 20 Mg Tablet) 20 mg PO BID PRN PRN Reason: upset stomach Last Admin: 07/20/24 20:03 Dose: 20 mg Documented By: JOEL Folic Acid (Folic Acid 1 Mg Tablet) 1 mg PO DAILY [facility] Last Admin: 07/22/24 10:26 Dose: 1 mg Documented By: SARAH Gabapentin (Gabapentin 400 Mg Capsule) 400 mg PO QID [facility] Last Admin: 07/22/24 10:26 Dose: 400 mg Documented By: SARAH Guaifenesin/Dextromethorphan (Guaifenesin Dm 200/20/10 Ml 10 Ml Syrup) 10 ml PO Q4H PRN PRN Reason: Cough Doxycycline Hyclate 100 mg/ (Sodium Chloride) 250 mls @ 166.67 mls/hr IV Q12H [facility] Last Admin: 07/22/24 10:21 Dose: 166.67 mls/hr Documented By: SARAH Levalbuterol HCl (Levalbuterol Hcl 1.25 Mg/3 Ml Vial.Neb) 1.25 mg INHALE Q4H PRN PRN Reason: Shortness of Breath/Wheezing Levalbuterol HCl (Levalbuterol Hcl 1.25 Mg/3 Ml Vial.Neb) 1.25 mg INHALE RQ4H [facility] Last Admin: 07/22/24 08:37 Dose: 1.25 mg Documented By: RADHA Lorazepam (Lorazepam 1 Mg Tablet) 1 mg PO TID PRN PRN Reason: Anxiety, agitation Last Admin: 07/21/24 21:29 Dose: 1 mg Documented By: RISSA Magnesium Hydroxide (Milk Of Magnesia 30 Ml Oral.Susp) 30 ml PO DAILY PRN PRN Reason: Constipation Melatonin (Melatonin 3 Mg Tablet) 3 mg PO BEDTIME PRN PRN Reason: Insomnia Last Admin: 07/21/24 23:22 Dose: 3 mg Documented By: LISA Methylprednisolone Sodium Succinate (Methylprednisolone Sod Succ 40 Mg/Ml Vial) 40 mg IVPUSH Q12H [facility] Last Admin: 07/22/24 10:17 Dose: 40 mg Documented By: SARAH Nicotine (Nicotine 21 Mg Patch.Td24) 21 mg TRANSDERMA DAILY [facility] Last Admin: 07/22/24 10:26 Dose: 21 mg Documented By: SARAH Ondansetron HCl (Ondansetron Hcl 4 Mg/2 Ml Vial) 4 mg IVPUSH Q8H PRN PRN Reason: Nausea and Vomiting Sodium Chloride (0.9 % Sodium Chloride Flush 3 Ml Syringe) 3 ml IVFLUSH QSHIFT [facility] Last Admin: 07/22/24 10:20 Dose: 3 ml Documented By: SARAH Labs 07/22/24 06:29 07/22/24 06:29 Labs: Laboratory Results - last 24 hr 07/21/24 07/21/24 07/22/24 10:27 21:37 06:29 MCV 99.1 H MCH 32.6 MCHC 32.9 RDW 14.9 Plt Count 139 L MPV 10.9 Immature Gran % (Auto) 0.6 H Neut % (Auto) 89.3 H Lymph % (Auto) 8.2 L [place] % (Auto) 1.7 L Eos % (Auto) 0.0 Baso % (Auto) 0.2 Lymph # (Auto) 0.9 L [place] # (Auto) 0.2 Eos # (Auto) 0.0 Baso # (Auto) 0.0 Abs Immat Gran (auto) 0.07 H Absolute Neuts (auto) 9.9 H Absolute Nucleated RBC 0.000 Nucleated RBC % (auto) 0.0 Hold Purple Top SEE NOTE O2 Saturation 92.0 ABG pH at Pt Temp 7.38 ABG pCO2 at Pt Temp 41 ABG pO2 at Pt Temp 64 L ABG HCO3 24 ABG Base Excess (Actual) -0.2 Anion Gap 9 L Estim Creat Clear Calc 113.8 Estimated GFR > 60 Random Glucose 153 H Calcium 8.7 D Total Bilirubin 0.3 AST 31 ALT 40 H Alkaline Phosphatase 66 Troponin I High Sens < 2.7 Total Protein 6.0 L Albumin 3.6 07/22/24 09:57 MCV MCH MCHC RDW Plt Count MPV Immature Gran % (Auto) Neut % (Auto) Lymph % (Auto) [place] % (Auto) Eos % (Auto) Baso % (Auto) Lymph # (Auto) [place] # (Auto) Eos # (Auto) Baso # (Auto) Abs Immat Gran (auto) Absolute Neuts (auto) Absolute Nucleated RBC Nucleated RBC % (auto) Hold Purple Top O2 Saturation 100.0 ABG pH at Pt Temp 7.44 ABG pCO2 at Pt Temp 34 ABG pO2 at Pt Temp 102 ABG HCO3 23 ABG Base Excess (Actual) 0.0 Anion Gap Estim Creat Clear Calc Estimated GFR Random Glucose Calcium Total Bilirubin AST ALT Alkaline Phosphatase Troponin I High Sens Total Protein Albumin Assessment and Plan (1) Suicidal ideation: Status: Acute (2) Left lower lobe pneumonia: Status: Acute (3) Hypoxia: Status: Acute Plan 44/F with PMH significant for?Multiple sclerosis, congenital immune deficiency, hepatitis C previously treated, polysubstance use disorder, anxiety, and depression who initially presented to the ED 07/20 with insomnia, hallucinations secondary to lack of sleep, and increasing depression with SI. Pt was initially placed in physician observation where she was noted to be desatting to 81% and tachycardic. Further work up revealed sepsis, pneumonia causing acute hypoxic respiratory failure. Overnight 07/21 became more hypoxic and was placed on HighFlo. Respiratory panel is pending, flu/covid/rsv negative. CXR LLL PNA. CT no PE but bilateral pneumonia Acute hypoxic respiratory failure due to sepsis causing pneumonia, and possible component of copd exacerbationhas severe hypoxia and is now on HiFlow -continue Highflow, wean off as rubin -get pulmonology consult -continue IV steroid, bronchodilators -Broad spec Abx with Vanco and Zosyn, and hold ceftriaxone and doxy Transaminitis, mild Pt reports hx of gallstones No significant RUQ pain Trend LFTs, consider RUQ U/S if pain worsens Multiple sclerosis Not on home meds Complains of all-over body pain secondary to MS Analgesics for pain management Hx of polysubstance use disorder Not on Buprenorphine since March Apparently for medication change for MS pain? Addiction medicine consult, nav for pain management Mood disorder with SI Pt no longer endorses SI, denies previous SI statement Care team evaluation Sitter for now, likely will only need a camera on the floor Likely will need in-patient psychiatric placement once medically cleared Continue home mood stabalizers GERD Continue famotidine Full Code DVT Prophylaxis: Lovenox Need for inpatient; acute respiratory failure with severe hypoxia Quality Stroke Does the patient have a stroke diagnosis?: No VTE Prior VTE?: No VTE Risk Level:: Medical - moderate - high VTE Device Contraindication: Treatment Not Indicated VTE Drug Contraindication: N/A - Med Ordered
[2024-07-22 11:40] LABS: Adenovirus PCR Not Detected (Not Detect.); Bordetella parapertussis PCR Not Detected (Not Detect.); Bordetella pertussis PCR Not Detected (Not Detect.); Chlamydia pneumoniae PCR Not Detected (Not Detect.); Coronavirus 229E PCR Not Detected (Not Detect.); Coronavirus HKU1 PCR Not Detected (Not Detect.); Coronavirus NL63 PCR Not Detected (Not Detect.); Coronavirus OC43 PCR Not Detected (Not Detect.); Human metapneumovirus PCR Not Detected (Not Detect.); Influenza A PCR Not Detected (Not Detect.); Influenza B PCR Not Detected (Not Detect.); Mycoplasma pneumoniae PCR Not Detected (Not Detect.); Parainfluenza 1 PCR Not Detected (Not Detect.); Parainfluenza 2 PCR Not Detected (Not Detect.); Parainfluenza 3 PCR Not Detected (Not Detect.); Parainfluenza 4 PCR Not Detected (Not Detect.); RSV PCR Not Detected (Not Detect.); Rhino/Enterovirus PCR Not Detected (Not Detect.)
[2024-07-22 11:43] LABS: SARS-CoV-2 PCR Not Detected (Not Detect.)
[2024-07-22] MEDS: Piperacillin Sodium/Tazobactam 4.5 GM in 0.9 % Sodium Chloride 100 ML IV ×2 (12:37→19:53)
--- NOTE | 2024-07-22 12:38 | MHC.SL.SWA ---
Speech Pathologist Impression: Risk of Aspiration, Oropharyngeal Dysphagia Risk of Aspiration Due to: Neurological Condition History of Pneumonia Dysphasia Diet Status: Downgrade to NDD3 Liquid Consistency and Strategies for Safe Swallow: Liquid Intake Recommendation: Thin Liquid Intake Strategies: Small Sips No Straws Solid Food Consistency: Dietary Recommendations: Chopped/Advanced (NDD3) Additional Modifications to Solid Foods: Recommend start on CHOPPED/ADVANCED (NDD3) solids and THIN liquids, individual sips only (avoid straws, avoid sequential sipping), pills WHOLE in PUREE or LIQUID. Oral Medication Intake: Whole with Liquid Please contact the pharmacy regarding appropriate crushable or liquid drug formulations that are available whenever modified delivery is recommended. Compensatory Strategies and Precautions to be Taken for Safe Swallow: Sitting Upright (90 deg) No Straw Small Bites and Sips Alternate Liquids/Solids Rate of Ingestion Change Supervision While Eating and Drinking for Safe Swallow: Total Supervision (1:1) Foods to Avoid: Mixed consistencies Swallowing Recommended Treatments: Recommendation for Speech: Inpatient Speech Therapy Modified Barium Swallow Study - Outpatient Comment: Patient may benefit from outpatient MBSS if concerns persist. Frequency/Duration: M-F Date Range for Service Req: Timeline to reassess: PRN Digital Content Manager Clinican/Clinical Fellow: No Supervisory Statement: I have reviewed and agree with the student/clinical fellow's documentation: N/A Speech Language Pathologist: Tiesha Wright M.A., CCC-LYE TREATER
[2024-07-22] MEDS: LORazepam 1 MG TABLET PO ×2 (12:51→20:27)
--- NOTE | 2024-07-22 13:10 | P.CONPL_ITS ---
History of Present Illness History of Present Illness Consult date: 07/22/24 Chief complaint: Pneumonia Hypoxia Narrative: 44-year-old lady with underlying history of multiple sclerosis, immune deficiency, hepatitis-C, polysubstance abuse admitted on 07/21/2024 with dyspnea and hypoxia. Hospital course significant for asn episode of profound hypoxemia requiring close to maximum support with high-flow nasal cannula, but now with significantly improved FiO2 requirements. CT angio chest with no evidence of pulmonary emboli, but bibasilar infiltrates. Patient covered with empiric antibiotic. On my exam, nontoxic appearing and in no respiratory distress. Review of Systems 2 Constitutional: Constitutional: Denies daytime sleepiness, Denies excessive sweating, Denies fatigue, Denies fever(s), Denies lethargy, Denies malaise, Denies night sweats, Denies snoring and Denies weight loss Eyes: Eyes: Denies blurry vision and Denies itchy eyes ENT: Denies nasal congestion, Denies post nasal drip, Denies sinus pain, Denies sinus pressure and Denies other ( Thrush) Cardiovascular: Cardiovascular: Denies chest pain, Denies pedal edema, Denies dyspnea, Denies orthopnea and Denies paroxysmal nocturnal dyspnea Respiratory: Respiratory: Denies cough, Denies hemoptysis, Denies excessive phlegm production, Denies dyspnea, Denies snoring and Denies wheezing Gastrointestinal: Gastrointestinal: Denies abdominal pain and Denies heartburn Musculoskeletal: Musculoskeletal: Denies myalgias, Denies arthralgias and Denies joint swelling Integumentary/Breasts: Skin/Breast: Denies rash Neurologic: Denies memory loss and Denies seizure-like activity Psychiatric: Psychiatric: Denies abnormal sleep pattern, Denies anxiety and Denies memory loss Endocrine: Endocrine: Denies excessive sweating, Denies fatigue and Denies heat intolerance Hematologic/Lymphatic: Hematologic/Lymphatic: Denies easy bruising Allergic/Immunologic: Allergic/Immunologic: Denies itchy eyes, Denies seasonal rhinorrhea and Denies wheezing PMFSH Past Medical History Medical History Hx of hepatitis C Multiple sclerosis Routine history and physical examination of adult Social History Social History Household Members: Significant Other Household Members Other:: 2 Housing: House Do you presently have visiting nurse or other home services: Yes (jad is small package and bundle sorter clerk) Comment: 1:[address] on assuming care Patient Tobacco Use Status: Current everyday Tobacco user Tobacco use type: Cigarette Cigarette Packs Per Day: 1 Cigarettes Per Day: 20.0 Years Smoked: 25 Smoked in Last 30 Days: Yes Patient Interested in Nicotine Replacement: Yes Patient Given Instructions on How to Stop Smoking: No Second Hand Smoke Exposure: No Use of substances other than those prescribed or required for medical reasons: Yes Substance Use Type: Marijuana Substance Use Frequency: Daily Currently Displaying Signs/Symptoms of Drug Intoxication Withdrawal: No Any prior treatment program specific to substance use: No Have you been hit, kicked, punched, or otherwise hurt by someone within the past year? If so, by whom?: No Do you feel safe in your current relationship?: Yes Is there a partner from a previous relationship who is making you feel unsafe now?: No Are you made to feel afraid or neglected: No Spiritual Healthcare Practices: judaism Advance Directives: No Advance Directives Information Provided: No Do you have a plan to hurt others: No Plan Recently lost weight without trying: No Eating poorly because of decreased appetite: Yes Nutrition Risks: Dental problems Patient : No : No Poor oral hygiene: No service: No Sexual orientation: Straight/Heterosexual Meds Allergies Allergy/AdvReac Type Severity Reaction Status Date / Time No Known Allergies Allergy Verified 07/20/24 17:04 Active Medications: Current Medications Acetaminophen (Acetaminophen 325 Mg Tablet) 650 mg PO Q6H PRN PRN Reason: Pain, Mild 1-3,fever,headache Last Admin: 07/21/24 22:15 Dose: 650 mg Calcium Carbonate (Calcium Carbonate 750 Mg Tab.Chew) 750 mg PO Q4H PRN PRN Reason: Heartburn Enoxaparin Sodium (Enoxaparin Sodium 40 Mg/0.4 Ml Syringe) 40 mg SUBCUT Q24H LATASHA Last Admin: 07/22/24 10:36 Dose: 40 mg Famotidine (Famotidine 20 Mg Tablet) 20 mg PO BID PRN PRN Reason: upset stomach Last Admin: 07/20/24 20:03 Dose: 20 mg Folic Acid (Folic Acid 1 Mg Tablet) 1 mg PO DAILY LATASHA Last Admin: 07/22/24 10:26 Dose: 1 mg Gabapentin (Gabapentin 400 Mg Capsule) 400 mg PO QID [facility] Last Admin: 07/22/24 12:51 Dose: 400 mg Guaifenesin/Dextromethorphan (Guaifenesin Dm 200/20/10 Ml 10 Ml Syrup) 10 ml PO Q4H PRN PRN Reason: Cough Piperacillin Sod/Tazobactam (Sod 4.5 gm/ Sodium Chloride) 100 mls @ 200 mls/hr IV Q6H [facility] Last Admin: 07/22/24 12:37 Dose: 200 mls/hr Vancomycin HCl 1,000 mg/Vancomycin HCl 750 mg/ Sodium Chloride 535 mls @ 267.5 mls/hr IV ONCE ONE Stop: 07/22/24 13:59 Levalbuterol HCl (Levalbuterol Hcl 1.25 Mg/3 Ml Vial.Neb) 1.25 mg INHALE Q4H PRN PRN Reason: Shortness of Breath/Wheezing Levalbuterol HCl (Levalbuterol Hcl 1.25 Mg/3 Ml Vial.Neb) 1.25 mg INHALE RQ4H [facility] Last Admin: 07/22/24 11:31 Dose: 1.25 mg Lorazepam (Lorazepam 1 Mg Tablet) 1 mg PO TID PRN PRN Reason: Anxiety, agitation Last Admin: 07/22/24 12:51 Dose: 1 mg Magnesium Hydroxide (Milk Of Magnesia 30 Ml Oral.Susp) 30 ml PO DAILY PRN PRN Reason: Constipation Melatonin (Melatonin 3 Mg Tablet) 3 mg PO BEDTIME PRN PRN Reason: Insomnia Last Admin: 07/21/24 23:22 Dose: 3 mg Methylprednisolone Sodium Succinate (Methylprednisolone Sod Succ 40 Mg/Ml Vial) 40 mg IVPUSH Q12H [facility] Last Admin: 07/22/24 10:17 Dose: 40 mg Nicotine (Nicotine 21 Mg Patch.Td24) 21 mg TRANSDERMA DAILY [facility] Last Admin: 07/22/24 10:26 Dose: 21 mg Ondansetron HCl (Ondansetron Hcl 4 Mg/2 Ml Vial) 4 mg IVPUSH Q8H PRN PRN Reason: Nausea and Vomiting Pharmacy Consult (Consult Rx Vancomycin Dosing) 1 each MISCELLANE DAILY PRN PRN Reason: Consult order Sodium Chloride (0.9 % Sodium Chloride Flush 3 Ml Syringe) 3 ml IVFLUSH QSHIFT [facility] Last Admin: 07/22/24 10:20 Dose: 3 ml Home Medications ?Medication ?Instructions ?Recorded ?Confirmed ?Last Taken ?Type famotidine 20 mg tablet 20 mg PO BID PRN upset stomach 07/20/24 07/20/24 07/16/24 History folic acid 1 mg tablet 1 mg PO DAILY 07/20/24 07/20/24 07/16/24 History gabapentin 400 mg capsule 400 mg PO QID 07/20/24 07/20/24 07/16/24 History Physical Exam 2 Vital Signs: Vital Signs: Last Vital Signs Temp 98.1 F 07/22/24 11:39 Pulse 92 07/22/24 11:39 Resp 18 07/22/24 11:39 BP 114/85 07/22/24 11:39 Pulse Ox 94 07/22/24 11:39 O2 Del Method High Flow Nasal C annula 07/22/24 11:39 O2 Flow Rate 30 07/22/24 11:39 FiO2 40 07/22/24 11:39 BMI result Body Mass Index 30.7 Const: General: no acute distress and alert Nutritional Appearance: not obese Orientation/consciousness: Other orientation findings ( oriented) HEENT: Head: Yes atraumatic Eyes: General: appearance normal, both eyes and all related structures S clerae: sclerae normal EOM: EOMs intact bilaterally Neck: Neck: Yes supple Lymphatic: no lymphadenopathy noted Resp: Effort & Inspection: normal respiratory effort and no use of accessory muscles Auscultation: clear to auscultation bilaterally Cardio: Rate: regular rate Rhythm: regular rhythm Heart sounds: no gallops, no murmurs and no rubs Skin: General skin exam: other ( warm) Extrem: General: No clubbing, No cyanosis and No edema Results Laboratory Findings 07/22/24 06:29 07/22/24 06:29 Abnormal lab findings: Abnormal Labs 07/20/24 07/21/24 07/22/24 18:16 21:37 06:29 WBC 11.1 H Hgb 16.1 H D Hct 48.3 H MCV 99.1 H Plt Count 139 L Immature Gran % (Auto) 0.6 H Neut % (Auto) 89.3 H Lymph % (Auto) 8.2 L [place] % (Auto) 1.7 L Lymph # (Auto) 0.9 L Abs Immat Gran (auto) 0.07 H Absolute Neuts (auto) 9.9 H ABG pO2 at Pt Temp 64 L Chloride 112 H 111 H Anion Gap 11 L 9 L Random Glucose 153 H Total Bilirubin 1.1 H AST 44 H ALT 39 H 40 H Total Protein 6.0 L Ur Specific [place] >= 1.030 H Salicylates < 5.0 L Ur Buprenorphine Scrn Positive H Ur Amphetamines Screen POSITIVE H U Marijuana (THC) Screen POSITIVE H Microbiology: Microbiology 07/21/24 09:14 Blood - Venous Blood Culture - Preliminary No growth after 24 hours. 07/21/24 09:14 Blood - Venous Blood Culture - Preliminary No growth after 24 hours. Assessment and Plan (1) Acute respiratory failure with hypoxia: Status: Acute (2) Left lower lobe pneumonia: Status: Acute Plan Impression: 44-year-old lady admitted with dyspnea and hypoxia likely secondary to pneumonia with possible aspiration component secondary to polysubstance abuse, now improving. Recommendations: Agree with current empiric broad-spectrum antibiotics. No evidence of pulmonary emboli. Continue to titrate off supplemental oxygen as tolerated. Procedures Date of Service Date of Service: 07/22/24
[2024-07-22 13:22] LABS: ABG Refer to POC result
[2024-07-22] MEDS: vancomycin HCL 1,000 MG, vancomycin HCL 750 MG in 0.9 % Sodium Chloride 500 ML 267.5 MG IV (14:20)
[2024-07-22] MEDS: Melatonin 3 MG TABLET PO (20:27)
[2024-07-23] VITALS (11 sets, daily range): BP systolic 101–115; BP diastolic 58–72; PULSE 60–103; RESP 12–22; TEMP 36–36.6; O2SAT 88–96
[2024-07-23] MEDS: levalbuterol HCL 1.25 MG/3 ML VIAL.NEB INHALE ×6 (00:22→20:17)
[2024-07-23] MEDS: Piperacillin Sodium/Tazobactam 4.5 GM in 0.9 % Sodium Chloride 100 ML IV ×4 (01:39→19:52)
[2024-07-23] MEDS: vancomycin HCL 1,500 MG in 0.9 % Sodium Chloride 500 ML 333.33 MG IV (06:10)
[2024-07-23] MEDS: Nicotine 21 MG PATCH.TD24 TRANSDERMA (08:23)
[2024-07-23] MEDS: Folic Acid 1 MG TABLET PO (08:24)
[2024-07-23] MEDS: LORazepam 1 MG TABLET PO ×2 (08:24→19:53)
[2024-07-23] MEDS: Gabapentin 400 MG CAPSULE PO ×4 (08:24→19:54)
[2024-07-23] MEDS: Enoxaparin Sodium 40 MG/0.4 ML SYRINGE SUBCUT (08:25)
[2024-07-23] MEDS: methylPREDNISolone Sod Succ 40 MG/ML VIAL IVPUSH ×2 (08:25→19:55)
--- NOTE | 2024-07-23 10:16 | MHC.SL.SWA ---
Speech Pathologist Impression: Mild risk for aspiration d/t respiratory status and PMH Risk of Aspiration Due to: Neurological Condition History of Pneumonia Dysphasia Diet Status: Patient may benefit from outpatient MBSS if concerns persist. Liquid Consistency and Strategies for Safe Swallow: Liquid Intake Recommendation: Thin Liquid Intake Strategies: Small Sips No Straws Solid Food Consistency: Dietary Recommendations: Regular Additional Modifications to Solid Foods: Recommend upgrade to Regular solids and thin liquids, individual sips only (avoid straws, avoid sequential sipping), pills WHOLE in PUREE or LIQUID. Oral Medication Intake: Whole with Liquid Please contact the pharmacy regarding appropriate crushable or liquid drug formulations that are available whenever modified delivery is recommended. Compensatory Strategies and Precautions to be Taken for Safe Swallow: Sitting Upright (90 deg) Small Bites and Sips Alternate Liquids/Solids Rate of Ingestion Change Supervision While Eating and Drinking for Safe Swallow: Total Supervision (1:1) Foods to Avoid: Mixed consistencies Swallowing Recommended Treatments: Compens. Strategy Educat. Recommendation for Speech: Inpatient Speech Therapy Modified Barium Swallow Study - Outpatient Comment: AVOID straws, individual sips only (no sequential sipping), slow pacing, alternating consistencies Frequency/Duration: M-F Date Range for Service Req: Timeline to reassess: PRN Invoice Classification Clerk Clinican/Clinical Fellow: No Supervisory Statement: I have reviewed and agree with the student/clinical fellow's documentation: N/A Speech Language Pathologist: Mary Carmen Lizama M.S., CCC-FELLER SEAM OPERATOR
--- NOTE | 2024-07-23 10:31 | MHC.CM.PN ---
EMR REVIEWED, PER HOSPITALIST, PLAN TO WEAN PT OFF HI-FLOW, NO PLAN FOR DC AT THIS TIME, PLAN REMAINS FOR CARE TEAM AND POSSIBLE IPLOC, CM WILL CONT TO FOLLOW.
[2024-07-23 11:46] LABS: Creatinine Clr Calc Pharmacy 107.9; Estimated Glomerular Filt Rate > 60
[2024-07-23] MEDS: Famotidine 20 MG TABLET PO (12:59)
--- NOTE | 2024-07-23 13:18 | HO.PM.IMPN ---
Subjective Subjective Date of Service: 07/23/24 Interval History: f/u on acute respiratory failure with hypoxia She is feeling much better this morning, still cough, denies SI/HI Physical Exam Vital Signs: Vital Signs: Last Vital Signs Temp 96.8 F 07/23/24 11:18 Pulse 70 07/23/24 11:18 Resp 18 07/23/24 11:45 BP 107/60 07/23/24 11:18 Pulse Ox 94 07/23/24 11:18 O2 Del Method High Flow Nasal C annula 07/23/24 11:18 O2 Flow Rate 35 07/23/24 11:18 FiO2 53.1 07/23/24 11:18 BMI result Body Mass Index 30.7 Const: Other: Appearance: Alert. Oriented X3. No acute distress. Neck: Normal inspection. Neck supple. No lymph nodes noted. No crepitus CVS: Normal heart rate and rhythm. Pulses normal. Normal S1 and S2 Respiratory: No respiratory distress. Breath sounds normal. No Wheezing. No rales Abdomen: Soft and nontender. No rigidity. No distention. Skin: Skin warm and dry. Normal skin color. Normal skin turgor. Extremities: No lower extremity edema. No Lacerations. No Rash Neuro: Oriented X 3. No motor deficit. No sensory deficit. Moving all extremities. No slurred speech. CN 2 through 12 grossly intact Psych: calm, cooperative, normal affect Objective Data Active Medications Acetaminophen (Acetaminophen 325 Mg Tablet) 650 mg PO Q6H PRN PRN Reason: Pain, Mild 1-3,fever,headache Last Admin: 07/21/24 22:15 Dose: 650 mg Documented By: RISSA Calcium Carbonate (Calcium Carbonate 750 Mg Tab.Chew) 750 mg PO Q4H PRN PRN Reason: Heartburn Enoxaparin Sodium (Enoxaparin Sodium 40 Mg/0.4 Ml Syringe) 40 mg SUBCUT Q24H [facility] Last Admin: 07/23/24 08:25 Dose: 40 mg Documented By: IKE Famotidine (Famotidine 20 Mg Tablet) 20 mg PO BID PRN PRN Reason: upset stomach Last Admin: 07/23/24 12:59 Dose: 20 mg Documented By: LINDYCIAV Folic Acid (Folic Acid 1 Mg Tablet) 1 mg PO DAILY [facility] Last Admin: 07/23/24 08:24 Dose: 1 mg Documented By: IKE Gabapentin (Gabapentin 400 Mg Capsule) 400 mg PO QID [facility] Last Admin: 07/23/24 13:06 Dose: 400 mg Documented By: IKE Guaifenesin/Dextromethorphan (Guaifenesin Dm 200/20/10 Ml 10 Ml Syrup) 10 ml PO Q4H PRN PRN Reason: Cough Piperacillin Sod/Tazobactam (Sod 4.5 gm/ Sodium Chloride) 100 mls @ 200 mls/hr IV Q6H [facility] Last Infusion: 07/23/24 09:30 Dose: Infused Documented By: IKE Vancomycin HCl 1,500 mg/ (Sodium Chloride) 500 mls @ 333.333 mls/hr IV Q12H [facility] Last Infusion: 07/23/24 08:04 Dose: Infused Documented By: IKE Levalbuterol HCl (Levalbuterol Hcl 1.25 Mg/3 Ml Vial.Neb) 1.25 mg INHALE Q4H PRN PRN Reason: Shortness of Breath/Wheezing Levalbuterol HCl (Levalbuterol Hcl 1.25 Mg/3 Ml Vial.Neb) 1.25 mg INHALE RQ4H [facility] Last Admin: 07/23/24 11:44 Dose: 1.25 mg Documented By: TAMIKO Lorazepam (Lorazepam 1 Mg Tablet) 1 mg PO TID PRN PRN Reason: Anxiety, agitation Last Admin: 07/23/24 08:24 Dose: 1 mg Documented By: IKE Magnesium Hydroxide (Milk Of Magnesia 30 Ml Oral.Susp) 30 ml PO DAILY PRN PRN Reason: Constipation Melatonin (Melatonin 3 Mg Tablet) 3 mg PO BEDTIME PRN PRN Reason: Insomnia Last Admin: 07/22/24 20:27 Dose: 3 mg Documented By: VASQUEZ-KALEY Methylprednisolone Sodium Succinate (Methylprednisolone Sod Succ 40 Mg/Ml Vial) 40 mg IVPUSH Q12H [facility] Last Admin: 07/23/24 08:25 Dose: 40 mg Documented By: IKE Nicotine (Nicotine 21 Mg Patch.Td24) 21 mg TRANSDERMA DAILY [facility] Last Admin: 07/23/24 08:23 Dose: 21 mg Documented By: IKE Ondansetron HCl (Ondansetron Hcl 4 Mg/2 Ml Vial) 4 mg IVPUSH Q8H PRN PRN Reason: Nausea and Vomiting Pharmacy Consult (Consult Rx Vancomycin Dosing) 1 each MISCELLANE DAILY PRN PRN Reason: Consult order Sodium Chloride (0.9 % Sodium Chloride Flush 3 Ml Syringe) 3 ml IVFLUSH QSHIFT [facility] Last Admin: 07/23/24 08:05 Dose: Not Given Documented By: IKE Non-Admin Reason: IV Running Labs 07/22/24 06:29 07/23/24 11:27 Labs: Laboratory Results - last 24 hr 07/23/24 11:27 Estim Creat Clear Calc 107.9 Estimated GFR > 60 Microbiology Microbiology Results: Microbiology 07/21/24 09:14 Blood Culture - Preliminary Blood - Venous No growth after 48 hours. 07/21/24 09:14 Blood Culture - Preliminary Blood - Venous No growth after 48 hours. Assessment and Plan (1) Suicidal ideation: Status: Acute (2) Left lower lobe pneumonia: Status: Acute (3) Hypoxia: Status: Acute Plan 44/F with PMH significant for?Multiple sclerosis, congenital immune deficiency, hepatitis C previously treated, polysubstance use disorder, anxiety, and depression who initially presented to the ED 07/20 with insomnia, hallucinations secondary to lack of sleep, and increasing depression with SI. Pt was initially placed in physician observation where she was noted to be desatting to 81% and tachycardic. Further work up revealed sepsis, pneumonia causing acute hypoxic respiratory failure. Overnight 07/21 became more hypoxic and was placed on HighFlo. Respiratory panel is pending, flu/covid/rsv negative. CXR LLL PNA. CT no PE but bilateral pneumonia Acute hypoxic respiratory failure due to sepsis from pneumonia, and possible component of copd exacerbationhas severe hypoxia and and has been on highflow -transition from highflow to nasal cannula -pulmonology consult noted -continue IV steroid, bronchodilators -Broad spec Abx with Vanco and Zosyn Transaminitis, mild Pt reports hx of gallstones No significant RUQ pain Trend LFTs, consider RUQ U/S if pain worsens Multiple sclerosis Not on home meds Complains of all-over body pain secondary to MS Analgesics for pain management Hx of polysubstance use disorder Not on Buprenorphine since March Apparently for medication change for MS pain? Addiction medicine consult, nav for pain management Mood disorder with SI Pt no longer endorses SI, denies previous SI statement Care team following [facility]itter for now, likely will only need a camera on the floor Likely will need in-patient psychiatric placement once medically cleared Continue home mood stabalizers GERD Continue famotidine Full Code DVT Prophylaxis: Lovenox Need for inpatient; acute respiratory failure with severe hypoxia Quality Stroke Does the patient have a stroke diagnosis?: No VTE Prior VTE?: No VTE Risk Level:: Medical - moderate - high VTE Device Contraindication: Treatment Not Indicated VTE Drug Contraindication: N/A - Med Ordered
[2024-07-23 16:07] LABS: MRSA Nasal PCR NEGATIVE (Negative); SA Nasal PCR NEGATIVE (Negative)
[2024-07-23 17:26] LABS: Vancomycin Random 7.9 mcg/mL (15-20)
[2024-07-23] MEDS: 0.9 % Sodium Chloride Flush 3 ML SYRINGE IVFLUSH (19:55)
[2024-07-24] VITALS: BP 115/65; PULSE 87; RESP 20; TEMP 36.1; O2SAT 92
--- NOTE | 2024-07-24 | ECG_ITS ---
Test Reason : abnormal ecg Blood Pressure : */* mmHG Vent. Rate : 80 BPM Atrial Rate : 80 BPM P-R Int : 160 ms QRS Dur : 88 ms QT Int : 382 ms P-R-T Axes : 54 40 11 degrees QTcB Int : 440 ms Normal sinus rhythm Normal ECG When compared with ECG of 21-Jul-2024 07:06, Criteria for Septal infarct are no longer Present [facility] Electronically Signed By: AKHIL BELL
[2024-07-24] MEDS: Piperacillin Sodium/Tazobactam 4.5 GM in 0.9 % Sodium Chloride 100 ML IV ×2 (01:52→08:07)
[2024-07-24 03:51] VITALS: BP 94/52; PULSE 71; RESP 16; TEMP 36.1; O2SAT 95
[2024-07-24 07:09] VITALS: BP 112/61; PULSE 65; RESP 16; TEMP 36.3; O2SAT 93
[2024-07-24 07:33] LABS: Creatinine Clr Calc Pharmacy 99.4; Estimated Glomerular Filt Rate > 60
[2024-07-24] MEDS: methylPREDNISolone Sod Succ 40 MG/ML VIAL IVPUSH (08:06)
[2024-07-24] MEDS: Enoxaparin Sodium 40 MG/0.4 ML SYRINGE SUBCUT (08:06)
[2024-07-24] MEDS: Nicotine 21 MG PATCH.TD24 TRANSDERMA (08:06)
[2024-07-24] MEDS: 0.9 % Sodium Chloride Flush 3 ML SYRINGE IVFLUSH (08:07)
[2024-07-24] MEDS: Folic Acid 1 MG TABLET PO (08:08)
[2024-07-24] MEDS: LORazepam 1 MG TABLET PO ×2 (08:08→13:28)
[2024-07-24] MEDS: Gabapentin 400 MG CAPSULE PO ×2 (08:08→12:33)
--- NOTE | 2024-07-24 10:04 | MHC.CARE ---
Pt meets the criteria for IPLOC and will be an inpatient psychiatric bed search. Section 12a in chart. Provider in agreement.
--- NOTE | 2024-07-24 11:05 | MHC.SL.SWA ---
Speech Pathologist Impression: Risk of Aspiration Risk of Aspiration Due to: Neurological Condition History of Pneumonia Dysphasia Diet Status: No Change Liquid Consistency and Strategies for Safe Swallow: Liquid Intake Recommendation: Thin Liquid Intake Strategies: Small Sips No Straws Solid Food Consistency: Dietary Recommendations: Regular Additional Modifications to Solid Foods: Patient reportedly transferring to psych unit. Recommend continue on REGULAR solids and THIN liquids with aspiration precautions: avoid use of straws, take individual sips (avoid chain sipping), eat/drink w/ a slow pace, alternate bites of solids w/ sips liquid. Patient demonstrated strategies during today's visit. Please re-refer w/ any further concern. Oral Medication Intake: Whole with Liquid Please contact the pharmacy regarding appropriate crushable or liquid drug formulations that are available whenever modified delivery is recommended. Compensatory Strategies and Precautions to be Taken for Safe Swallow: Sitting Upright (90 deg) No Straw Small Bites and Sips Alternate Liquids/Solids Rate of Ingestion Change Supervision While Eating and Drinking for Safe Swallow: Intermittent Supervision Foods to Avoid: Mixed consistencies Swallowing Recommended Treatments: Compens. Strategy Educat. Recommendation for Speech: Modified Barium Swallow Study - Outpatient Revenue Inspector Clinican/Clinical Fellow: No Supervisory Statement: I have reviewed and agree with the student/clinical fellow's documentation: N/A Speech Language Pathologist: Tiesha Wright M.A., CCC-BENEFIT DIRECTOR
--- NOTE | 2024-07-24 11:16 | P.DS_ITS ---
DS: Providers Provider Date of Service: 07/24/24 Date of admission: 07/21/24 09:47 Date of discharge: 07/24/24 Primary care physician: None Physician Consults: 07/20/24 17:06 Consult to Care Team Stat Comment: Reason for consultation: SI 07/21/24 09:39 Addiction Medicine Routine Consulting Provider: Addiction Covering Reason for consultation: Used to be on bup d/c in Oct, help w/pain management for MS 07/22/24 01:59 Consult for Sitter Routine Reason for consultation: pulling off o2 07/22/24 08:49 Consult to Pulmonology Routine Consulting [place] [facility] [place] Reason for consultation: Hypoxia, resp failure, pna 07/22/24 11:13 Consult to Care Team Routine Comment: Reason for consultation: SI 07/24/24 09:08 Consult to Care Team Routine Comment: Reason for consultation: Depression/SI, medicall ready for dc DS: Diagnosis Discharge Diagnosis (1) Suicidal ideation: Status: Acute (2) Left lower lobe pneumonia: Status: Acute (3) Hypoxia: Status: Acute DS: Summary Hospital Course Hospital Course: admission hpi Chief Complaint: Hypoxia Pt is a 44-year-old female with a PMH significant for?Multiple sclerosis, congenital immune deficiency, hepatitis C previously treated, polysubstance use disorder, anxiety, and depression who initially presented to the ED yesterday with insomnia, hallucinations secondary to lack of sleep, and increasing depression with SI. Pt reportedly had not been able to sleep for the past three days and had been hallucinating, seeing people that were not there. Denies auditory hallucinations. Pt also endorsed SI with plan to overdose. Pt apparently has not been taking her home medications for some time as PCP retired and she has not yet established with new care. In the ED pt was initially medically cleared and placed in overflow on physician observation for care team evaluation. This morning pt was noted to be hypoxic at 81% and tachycardic. Was moved back to the main ED where viral panel was negative but CXR showed likely LLL pneumonia. Pt herself reports had a wicked bad cold 1-1/2 weeks ago, though thought she was getting better. Smokes 1 pack daily, though notes chronic cough has worsened in the past 1-2 weeks and has been more productive than normal. Also notes increased fatigue, though has not been sleeping well recently. Chronic all-over body pain patient's ascribes to her MS at baseline. No fever or chills. Denies nausea or vomiting. Of note, pt reports was taken off buprenorphine in March 2024 as she was supposed to be transitioned to new medication for MS peguero management. Pt currently denies SI and denies previous SI, stating she was previously just tired and wanted inpatient psychiatric treatment which helped her greatly. In the ED pt was tachycardic up to 135, tachypneic up to 24, and hypoxic as low as 81% on RA. Labs were significant for Mild transaminitis who T bili 1.1, AST 44, and ALT 39, otherwise grossly unremarkable and around baseline for pt. Lactic acid WNL. No leukocytosis. Stable H&H. No significant electrolyte abnormalities. Renal function baseline. UA negative for UTI. Tested negative for flu, COVID, RSV. Tox screen positive for buprenorphine, amphetamines, and marijuana. CXR showed Bandlike atelectasis of right lower lobe and patchy opac ity in left base likely infiltrate vs atelectasis. EKG demonstrated sinus tachycardia 109 without significant ischemic changes. Pt was treated with Doxycycline and ceftriaxone. Pt will be admitted to the hospital For treatment and further evaluation of acute hypoxic respiratory failure in the setting of pneumonia with sepsis. Hospital course: 44-year-old female with a past medical history of multiple sclerosis, congenital immune deficiency, previously treated hepatitis C, polysubstance use disorder, anxiety, and depression initially presented to the ED on 07/20 with insomnia, hallucinations secondary to lack of sleep, and worsening depression with suicidal ideation. She was initially placed in physician observation, where she was noted to have desaturations to 81% and tachycardia. Further workup revealed sepsis and pneumonia causing acute hypoxic respiratory failure. Overnight on 07/21, her hypoxia worsened, requiring High-Flow oxygen. Respiratory panel, flu, COVID, and RSV tests were negative. CXR showed left lower lobe pneumonia, and CT ruled out PE but confirmed bilateral pneumonia. She was initially treated with vancomycin and Zosyn, and blood cultures have remained negative. Her management included bronchodilators and corticosteroids for possible substance-related pneumonitis. Despite worsening initially and requiring High- Flow oxygen, she has since made a rapid recovery and has been weaned off oxygen entirely, now saturating in the mid-90s. At this point, she is clinically stable and will be transitioned to oral doxycycline and Augmentin for an additional five days and will complete three more days of prednisone. However, she remains depressed with intermittent suicidal ideation and wishes to be admitted to inpatient psychiatry for further evaluation and management. Her initial WBC was 7 but has increased to 11, likely due to steroid use. Transaminitis, and has normalized Multiple sclerosis Not on home meds Complains of all-over body pain secondary to MS, but no evidence of acute flare Hx of polysubstance use disorder Not on Buprenorphine since March seen by addiction med and doesn't need any addictional resources Mood disorder with SI--inpatient Psych for treatment of depression and SI GERD Continue famotidine Time Attestation Discharge Coordination Time (in mins): 45 Quality: Safe Use of Opioids Does Pt have an Active Cancer Diagnosis on the Problem List?: No Quality: Stroke Does the patient have a stroke diagnosis?: No Physical Exam Vital Signs: Vital Signs: Last Vital Signs Temp 97.3 F 07/24/24 07:09 Pulse 65 07/24/24 07:09 Resp 16 07/24/24 07:09 BP 112/61 07/24/24 07:09 Pulse Ox 93 07/24/24 07:09 O2 Del Method Nasal Cannula 07/24/24 07:09 O2 Flow Rate 4 07/24/24 07:09 FiO2 53.1 07/23/24 11:18 BMI result Body Mass Index 30.7 General: AO X 3, no acute distress Resp: CTA bilateral CVS: S1,S2,RRR GI: +BS, NT, no distention Skin: No rash Neuro: motor grossly intact Psych: appropriate affect DS: Data Data Completed and Pending Labs on day of discharge: Laboratory Results - last 24 hr 07/23/24 07/23/24 07/23/24 11:27 14:00 16:42 Creatinine 0.58 Estim Creat Clear Calc 107.9 Estimated GFR > 60 Nasal Screen MRSA (PCR) NEGATIVE Nasal S. aureus Screen NEGATIVE Nasal MRSA/S.aureus Interp SEE NOTE Random Vancomycin 7.9 L 07/24/24 06:46 Creatinine 0.63 Estim Creat Clear Calc 99.4 Estimated GFR > 60 Nasal Screen MRSA (PCR) Nasal S. aureus Screen Nasal MRSA/S.aureus Interp Random Vancomycin Preliminary micro results at discharge 07/21/24 09:14 Blood Culture - Preliminary Blood - Venous No growth after 48 hours. 07/21/24 09:14 Blood Culture - Preliminary Blood - Venous No growth after 48 hours. Discharge Plan Discharge Anticipated Discharge Date/Time: 07/24/24 11:17 Patient Disposition: Xfer Psychiatric Hosp Discharge Diagnosis: Hypoxic respiratory failure due to pneumonia, opiate dependence, depression with suicidal ideation Referrals: Physician,None [Primary Care Provider] - 1 Week Discharge Medications: New doxycycline monohydrate 100 mg Capsule 100 mg PO Q12H Qty: 9 0RF amoxicillin-pot clavulanate 875-125 mg Tablet 1 tab PO Q12H Qty: 9 0RF lorazepam 1 mg Tablet 1 mg PO TID PRN (Reason: Anxiety, agitation) Qty: 7 0RF Continued gabapentin 400 mg capsule 400 mg PO QID famotidine 20 mg tablet 20 mg PO BID PRN (Reason: upset stomach) folic acid 1 mg tablet 1 mg PO DAILY Discharge Orders: Discharge Order (Routine); Ordered 07/24/24 Ordered By: Kameron Lang Diet: Advance to usual diet Activity on Discharge: As tolerated Stand Alone Forms: Patient Portal Discharge page Print Language: Syriac Care Plan Goals: recovery from acute hypoxic respiratory failure, pneumonia/pneumonitis, depression with SI Health Concerns: acute hypoxic respiratory failure, pneumonia/pneumonitis, depression with SI Plan of Treatment: Take Augementin and Doxycycline for pneumonia Take Prednisone for pneumonitis Inpatient Psychiatric treatment for depression and SI
--- NOTE | 2024-07-24 11:32 | MHC.CM.PN ---
PER HOSPITALIST PT WILL TRANSFER TO INPT PSYCH UNIT TODAY.
[2024-07-24 11:40] VITALS: BP 109/67; PULSE 66; RESP 18; TEMP 36.8; O2SAT 93
[2024-07-24] MEDS: levalbuterol HCL 1.25 MG/3 ML VIAL.NEB INHALE (12:05)
[2024-07-24 12:06] VITALS: PULSE 72; RESP 18; O2SAT 92
[2024-07-24 12:11] LABS: Alanine Aminotransferase 27 U/L (0-31); Albumin Level 3.3 g/dL (3.5-5.0); Alkaline Phosphatase 53 U/L (39-117); Anion Gap 9 (12-20); Aspartate Amino Transferase 17 U/L (5-31); Bilirubin Direct < 0.2 mg/dL (0.0-0.5); Bilirubin Total 0.2 mg/dL (0.0-1.0); Carbon Dioxide 24 mmol/L (22-29); Chloride 114 mmol/L (96-108); Potassium 4.6 mmol/L (3.3-5.1); Sodium 142 mmol/L (135-145); Total Protein 5.7 g/dL (6.5-8.0)
[2024-07-24] MEDS: Doxycycline Monohydrate 100 MG CAPSULE PO (12:33)
[2024-07-24] MEDS: Amoxicillin/Potassium Clav 875 MG TABLET PO (12:33)
== END 2024-07-24 15:24 | DRG 871 ==
LOC: HO.ED 07-21 09:06 → HO.EDOVER 07-21 09:57 → HO.S3 07-21 16:18 → HO.IMC 07-21 21:53
PROVIDERS: Family Medicine; Internal Medicine; Internal Medicine Pulmonary Disease; Physician Assistant; Physician Assistant Medical; Registered Nurse Emergency; Admitting Provider Student in an Organized Health Care Education/Training Program; Emergency Provider Emergency Medicine Emergency Medical Services; Visit Provider Internal Medicine
DX: A41.9 Sepsis, unspecified organism (principal); J18.9 Pneumonia, unspecified organism; J96.01 Acute respiratory failure with hypoxia; J44.0 Chronic obstructive pulmonary disease with (acute) lower respiratory infection; J44.1 Chronic obstructive pulmonary disease with (acute) exacerbation; R45.851 Suicidal ideations; F11.20 Opioid dependence, uncomplicated; J98.11 Atelectasis; D84.9 Immunodeficiency, unspecified; R74.01 Elevation of levels of liver transaminase levels; F39 Unspecified mood [affective] disorder; K21.9 Gastro-esophageal reflux disease without esophagitis; G35 Multiple sclerosis; F17.210 Nicotine dependence, cigarettes, uncomplicated; Z71.6 Tobacco abuse counseling; Z20.822 Contact with and (suspected) exposure to COVID-19; Z86.19 Personal history of other infectious and parasitic diseases; Z79.899 Other long term (current) drug therapy
CPT/HCPCS: 0241U; 36415; 36600; 71045; 71275; 80051; 80053; 80076; 80143; 80179; 80202; 80307; 81003; 81025; 82565; 82803; 83605; 84484; 85025; 87040; 87633; 87635; 87640; 87641; 92526; 92610; 93005; 94640; 99285; J0696; J1650; J1885; J2543; J2919; J3370; J3371; Q9967; S9485

== ENCOUNTER → 2024-07-20 17:06 | Outpatient (BNV) | payer OTHER, SELFPAY | PROVIDERS: Admitting Provider Student in an Organized Health Care Education/Training Program; Emergency Provider Emergency Medicine Emergency Medical Services; Visit Provider Internal Medicine | DX: R00.0 Tachycardia, unspecified (principal); R94.31 Abnormal electrocardiogram [ECG] [EKG] | CPT/HCPCS: 93010 ==

== ENCOUNTER → 2024-07-21 06:48 | Outpatient (BNV) | payer OTHER, SELFPAY | PROVIDERS: Emergency Provider Emergency Medicine Emergency Medical Services; Visit Provider Radiology Diagnostic Radiology | DX: R09.02 Hypoxemia (principal) | CPT/HCPCS: 71045; 71275 ==

== ENCOUNTER → 2024-07-21 07:06 | Outpatient (BNV) | payer OTHER, SELFPAY | PROVIDERS: Admitting Provider Student in an Organized Health Care Education/Training Program; Emergency Provider Emergency Medicine Emergency Medical Services; Visit Provider Internal Medicine | DX: R00.0 Tachycardia, unspecified (principal); R94.31 Abnormal electrocardiogram [ECG] [EKG] | CPT/HCPCS: 93010 ==

== ENCOUNTER 2024-07-21 09:47 | Outpatient (BNV) | payer OTHER, SELFPAY | END 2024-07-24 12:23 | PROVIDERS: Admitting Provider Student in an Organized Health Care Education/Training Program; Emergency Provider Emergency Medicine Emergency Medical Services; Visit Provider Internal Medicine | DX: R94.31 Abnormal electrocardiogram [ECG] [EKG] (principal) | CPT/HCPCS: 93010 ==

== ENCOUNTER 2024-07-21 09:47 | Outpatient (BNV) | payer OTHER, SELFPAY | END 2024-07-22 09:30 | PROVIDERS: Admitting Provider Student in an Organized Health Care Education/Training Program; Emergency Provider Emergency Medicine Emergency Medical Services; Visit Provider Radiology Diagnostic Radiology | DX: R09.02 Hypoxemia (principal) | CPT/HCPCS: 71045 ==

== ENCOUNTER → 2024-07-21 09:47 | Outpatient (BNV) | payer OTHER, SELFPAY | PROVIDERS: Admitting Provider Student in an Organized Health Care Education/Training Program; Emergency Provider Emergency Medicine Emergency Medical Services; Visit Provider Internal Medicine Pulmonary Disease | DX: J96.01 Acute respiratory failure with hypoxia (principal); J18.9 Pneumonia, unspecified organism | CPT/HCPCS: 99222 ==

== ENCOUNTER → 2024-07-21 09:47 | Outpatient (BNV) | payer OTHER, SELFPAY | PROVIDERS: Admitting Provider Student in an Organized Health Care Education/Training Program; Emergency Provider Emergency Medicine Emergency Medical Services; Visit Provider Internal Medicine | DX: R45.851 Suicidal ideations (principal); J18.9 Pneumonia, unspecified organism; R09.02 Hypoxemia | CPT/HCPCS: 99233; 99239; 99499 ==

== ENCOUNTER → 2024-07-21 09:47 | Outpatient (BNV) | payer OTHER, SELFPAY | PROVIDERS: Admitting Provider Student in an Organized Health Care Education/Training Program; Emergency Provider Emergency Medicine Emergency Medical Services; Visit Provider Nurse Practitioner Psychiatric/Mental Health | DX: F11.20 Opioid dependence, uncomplicated (principal) | CPT/HCPCS: 99222 ==

== ENCOUNTER 2024-07-24 13:04 | Inpatient (IN) | payer OTHER, SELFPAY ==
[2024-07-24 15:35] VITALS: BP 126/78; PULSE 67; RESP 18; TEMP 36.6; O2SAT 94
[2024-07-24 15:44] VITALS: BMI 31.6
[2024-07-24] MEDS: LORazepam 1 MG TABLET PO ×2 (16:48→20:30)
[2024-07-24] MEDS: Gabapentin 400 MG CAPSULE PO ×2 (17:28→20:30)
--- NOTE | 2024-07-24 19:12 | PC.ADMIT ---
Valarie is a 44 year old woman coming to from [facility] after treatment for pneumonia.? She has a history of anxiety & depression & polysubstance use. She originally presented to [facility] ED? for experiencing hallucinations, SI with a plan to overdose and she had not been? taking her medications.? Pt was found to have LLL pneumonia & admitted to [facility].? She is now medically cleared & on oral antibiotics. Valarie continues to endorse vague SI, A/V/H, increased depression/anxiety, and extremely poor sleep. Pt has not been taking her psychiatric medications in months after losing access to her PCP.? Valarie was here on M3 a couple years ago & stated it helped her.? She is here seeking help to stabilize her meds & establish providers & follow-up care.? Valarie signed herself in on a CV.? She is A&Ox4 & very anxious, but pleasant & cooperative with admission.? She currently admits to daily marijuana use.? Her tox screen was positive for Buprenorphin,? Amphetamines & Marijuana.? Valarie states that when she is taking her prescribed psychiatric medications she does well and is high functioning in the community.? Skin check unremarkable.? She is on 15min safety checks.
--- OUTSIDE RECORDS SUMMARY | 2024-07-24 19:21 | XMS_ITS | Data Portability ---
Author Organization [employer] [facility] [place] [facility] - [facility] Address [address] [place] [id number] Care Team Providers Care Patient'S Librarian Name Role Phone HIM CCA Referring Provider [phone] Assessment Encounter Date Assessment Date Assessment LastModified by Organization Details LastModified Time 10/05/2023 10/05/2023 I provided real -time medical direction via phone for this encounter, and was available for additional phone based assistance as needed. I have reviewed and agree with the Assessment and Plan as documented by the Collar Packer. We discussed the diagnostic uncertainty of home visits and the risk associated with this. The patient and her significant other who is her HOTEL MAINTENANCE WORKER, Mat,t given the opportunity to ask questions. Advised if develops worsening CP, changes in radiation/uncont rolled sweating/severe SOB/turning blue/uncontrolle d n/v/d or black/bloody emesis or stool/ AMS/ syncope/ hi fever to call 911- they verbalized understanding of instruction [email or web address] Not available 10/05/2023 14:38:00 Plan of Treatment Reminders Order Date Submit Date Provider Last Modified By Organization Details Last Modified Time Details Appointments None recorded. Lab None recorded. Referral None recorded. Procedures None recorded. Surgeries None recorded. Imaging electrocard iogram 2023 024 [email or web address] 0 [facility], [address] [place] [address], [phone], 14:44:23 Medication Orders None recorded. Patient TargetsNo targets recorded. Patient InstructionsNo instructions recorded. Reason for Referral None Reported. Results Created Date Observation Date Name Description Value Unit Range Abnormal Flag Note LastModifiedBy Organization Detail LastModifiedTime 10/05/19 24 10/05/2023 elect mukesh vanggr am No observ ation record ed. [email or web address] [address], [phone], 10/05/2023 14:44:22 Result Notes None recorded. Procedures Surgical History None recorded. Imaging Results Imaging Date Name Status LastModified by Organization Details LastModified Time 10/05/2023 electrocardiogram completed [email or web address] [address], [phone], 10/05/2023 14:44:22 Procedure Notes None recorded. Medical [...] Updated DateTime 4 20 /min 112 /min 22675.8 4 g 152.4 cm 98.2 [degF] 92 [...] SNOMED-CT Code Diagnosis ICD10 Code Diagnosis Note [id number] Sandhya Garcia MD Main - [facility] [address] [place] [phone] 10/05/2023 12:15:43 10/08/2023 17:57:52 Chest pain 73348506 R07.9 I spoke with the patient and her S/O at length with the medic and I explained with the report of an abnormal cardiac stress test, early onset significan t CAD in women in her family and smoking that she is at risk of ACS, NV or sudden cardiac . I further explained [...] I did not give her any Constipation [id number] K5 9.00 Explained the need for compliance [...] Fletcher Member ID Guarantor Name 10/05/2023 1 [facility] - DOS ON OR AFTER 2022 - DUAL ELIGIBLE - LONGTERM OPTIONS AND ONE CARE (MEDICARE REPLACEMENT/ADV ANTAGE - HMO) Valarie Wilian [id number] Valarie Chalino Cedeno Notes Date Note Type [...] at 3pm Valarie has an apt with asset administrator Dr Balwinder Quintana [address] [place] [address]. He tells me he helps reassure her [...] ................... ................... ................... ................... ................... ................... ........ Collar Packer Note From An Ryder: Sent to a call for a pt complaining of chest pain. [facility] arrives on scene, pt is alert and oriented, airway is patent. Pt is found sitting in bed, appears agitated and restless. Pt's significant other serves as primary burr mill operator. Pt has history of COPD, Bipolar disorder, [...] be placed. Pt has f/u appt with asset administrator on 10/14, but no date scheduled for [...] am. Pt's Maternal side has history of CAD/NV/ primarily in 40's (mother, aunt, and grandmother) BP:92/57, P:112, RR:20, SpO2:92% RA, T:98.2 (pt states BP and SpO2 are baseline); Head: unremarkable; Lung sounds: clear bilaterally; Chest: no tenderness noted; Abdomen: distention and diffuse tenderness at baseline; Back: no deformities noted; Extremities: no peripheral edema; Skin: pink, warm, dry; 12 lead ECG performed: uploaded to [employer]; Pt ambulates unassisted to/from bathroom and denies [...] I do not have access to her [facility] records so I cannot verify the results of her cardiac ETT this week. Abrupt cessation of her Suboxone 2 weeks ago and now she no longer has clonazepam 1 mg twice daily, with stress of upcoming surgery has made this patient exceedingly anxious, understandably. She has not been sleeping and the insomnia and fatigue are exacerbating her symptoms. Sandhya Garcia MD [address] [facility],[address], [place], [phone], [employer] 10/05/2023 14:44:35 OBGyn Episode No OBEpisode recorded.
--- OUTSIDE RECORDS SUMMARY | 2024-07-24 19:21 | XMS_ITS | Clinical Summary ---
Author Organization [address] Address [address] [place] [address] Phone Care Team Providers Care Ballistics Tester Name Role Phone Chantell Pagan MD Primary Care Provider + Allergies No known active allergies Medications Medication Sig Dispensed Refills Start Date End Date Status gabapentin (NEURONTIN) 400 mg capsule Take 1 capsule (400 mg total) by mouth 3 (three) times a day. Active Encounters Date Type Department Care Team Description 05/21/[address] [facility] - Main Lab [address] [facility] [place] [id number] Nabor Tanner PA Gross hematuria 05/05/2024 4:52 PM EST - 05/05/2024 11:59 PM EST Emergency [facility] Emergency [address] [place] [id number] Discharge Disposition: Home or Self Care from Last 3 Months Social History Tobacco Use Types Packs/Day Years Used Date Smoking Tobacco: Every Day Cigarettes Smokeless Tobacco: Never Alcohol Use Standard Drinks/Week Comments Never 0 (1 standard drink = 0.6 oz pur e alcohol) Sex and Gender Information Value Date Recorded Sex Assigned at Not on file Gender Identity Not on file Sexual Orientation Not on file Obstetrics History Last Filed Vital Signs Vital Sign Reading Time Taken Comments Blood Pressure 117/69 05/05/2024 5:01 PM EST Pulse 68 05/05/2024 5:01 PM EST Temperature 36.4 ??C (97.5 ??F) 05/05/2024 5:[address] Respiratory Rate 20 05/05/2024 5:01 PM EST Oxygen Saturation 98% 05/05/2024 5:01 PM EST Inhaled Oxygen Concentration - - Weight 68 kg (150 lb) 05/05/2024 5:01 PM EST Height 152.4 cm (5') 05/05/2024 5:01 PM EST Body Mass Index 29.29 05/05/2024 5:01 PM EST Plan of Treatment Health Maintenance Due Date Last Done Comments Breast Cancer Screening 1979 Pneumococcal Vaccine: Pediatrics (0 to 5 Years) and At-Risk Patients (6 to 64 Years) (1 of 2 - PCV) 1985 DTaP,Tdap,and Td Vaccines (1 - Tdap) 1998 Hepatitis A Vaccines (1 of 2 - Risk 2-dose series) 1998 Hepatitis B Vaccines (1 of 3 - 19+ 3-dose series) 1998 Cervical Cancer Screening: Pap Smear 2000 Cholesterol Screening (Lipid Panel) 05/23/2022 Colorectal Cancer Screening: Colonoscopy 05/23/2022 Depression Screening 05/23/2022 HIV Screening 05/23/2022 Hepatitis C Screening 05/23/2022 Social Influencers of Health Screening 05/23/2022 COVID-19 Vaccine ( season) 2024 Influenza Vaccine Completed 04/10/2024, , 09/21/2021, Additional history exists HIB Vaccines Aged Out No longer eligi ble based on patient's age to complete this topic HPV Vaccines Aged Out No longer eligi ble based on patient's age to complete this topic IPV Vaccines Aged Out No longer eligi ble based on patient's age to complete this topic MMR Vaccines Aged Out No longer eligi ble based on patient's age to complete this topic Meningococcal ACWY Vaccine Aged Out N o longer eligible based on patient's age to complete this topic RSV Immunization Patients Under 20 months Aged Out No longer eligible based on patient's age to complete this topic Varicella Vaccines Aged Out No longer eligible based on patient's age to complete this topic Procedures Procedure Name Priority Date/Time Associated Diagnosis Comments AP OUTSIDE CONSULT Routine 05/14/2024 12 :00 AM EST Gross hematuria CBC WITH AUTO DIFFERENTIAL STAT 05/05/2024 5:31 PM EST LIPASE STAT 05/05/2024 5:31 PM EST COMPREHENSIVE METABOLIC PANEL STAT 05/05/2024 5:31 PM EST CBC AND DIFFERENTIAL STAT 05/05/2024 5:31 PM EST from Last 3 Months Results * Anatomic pathology outside consult (05/14/2024 [...] and pathological findings. 05/28/2024 4:27 PM EST [facility] Clinical Information [id number] Cytology/Urine FISH (now) 05/28/2024 4:27 PM EST [facility] Gross Description A. Urine, Voided, : [id number] Received 1 TP (CYTO) 1 TP (FISH) 05/28/2024 4:27 PM EST [facility] Disclaimer Unless otherwise specified, all tissue is 10% NB formalin fixed and paraffin embedded. 05/28/2024 4:27 PM [facility] Tissue Urine specimen from urethra / Unknown 05/14/2024 05/21/2024 10:27 AM EST Nabor LAGUERRE LAB PATHOLOGY ORDERA BLES [facility]) [facility] [address] [place] [address], * (ABNORMAL) CBC auto differential (05/05/2024 5:31 PM EST) WBC 6.9 4.8 - 10.8 [facility] LAB HEMETOLOGY METHOD 05/05/2024 5:54 PM [facility] RBC 4.70 3.80 - 4.80 M/mcL LAB HEMETOLOGY METHOD 05/05/2024 5:54 PM [facility] Hemoglobin 15.1 11.5 - 16.0 g/dL LAB HEMETOLOGY METHOD 05/05/2024 5:54 PM [facility] Hematocrit 46.4 35.0 - 47.0 % LAB HEMETOLOGY METHOD 05/05/2024 5:54 PM [facility] MCV 98.5(H) 79.0 - 98.0 FL LAB HEMETOLOGY METHOD 05/05/2024 5:54 PM [facility] MCH 32.1(H) 27.0 - 32.0 pcg LAB HEMETOLOGY METHOD 05/05/2024 5:54 PM [facility] MCHC 32.5 32.0 - 37.0 g/dL LAB HEMETOLOGY METHOD 05/05/2024 5:54 PM [facility] RDW 14.0 11.0 - 15.0 % LAB HEMETOLOGY METHOD 05/05/2024 5:54 PM [facility] Platelets 188 130 - 400 K/mcL LAB HEMETOLOGY METHOD 05/05/2024 5:54 PM [facility] MPV 10.3 7.0 - 11.0 FL LAB HEMETOLOGY METHOD 05/05/2024 5:54 PM [facility] NRBC 0.0 <1.0 % LAB HEMETOLOGY METHOD 05/05/2024 5:54 PM [facility] NRBC Absolute 0.00 <0.10 K/mcL LAB HEMETOLOGY METHOD 05/05/2024 5:54 PM [facility] Neutrophils Relative 69.7 % LAB HEMETOLOGY METHOD 05/05/2024 5:54 PM [facility] Lymphocytes Relative 25.1 % LAB HEMETOLOGY METHOD 05/05/2024 5:54 PM [facility] Monocytes Relative 3.5 % LAB HEMETOLOGY METHOD 05/05/2024 5:54 PM [facility] Eosinophils Relative 1.0 % LAB HEMETOLOGY METHOD 05/05/2024 5:54 PM [facility] Basophils Relative 0.3 % LAB HEMETOLOGY METHOD 05/05/2024 5:54 PM [facility] Immature Granulocytes Relative 0.4 % LAB HEMETOLOGY METHOD 05/05/2024 5:54 PM [facility] Neutrophils Absolute 4.81 1.50 - 7.00 K/mcL LAB HEMETOLOGY METHOD 05/05/2024 5:54 PM [facility] Lymphocytes Absolute 1.73 1.00 - 5.00 K/mcL LAB HEMETOLOGY METHOD 05/05/2024 5:54 PM [facility] Monocytes Absolute 0.24 0.20 - 1.00 K/mcL LAB HEMETOLOGY METHOD 05/05/2024 5:54 PM [facility] Eosinophils Absolute 0.07 0.00 - 0.50 K/mcL LAB HEMETOLOGY METHOD 05/05/2024 5:54 PM [facility] Basophils Absolute 0.02 0.00 - 0.20 K/mcL LAB HEMETOLOGY METHOD 05/05/2024 5:54 PM [facility] Immature Granulocytes Absolute 0.03 0.00 - 0.03 K/mcL LAB HEMETOLOGY METHOD 05/05/2024 5:54 PM [facility] Blood Venous blood specimen / Unknown Venipuncture / Unknown 05/05/2024 5:31 PM EST 05/05/2024 5:46 PM EST Justo C Cauchon DO LAB BLOOD ORDERABLE S Performing Organization Address City/[facility]/ZIP Co de Phone Number [facility] [address] [place] [address], [place] [phone] * Lipase (05/05/2024 5:31 PM EST) [facility] Lipase 16 13 - 75 unit/L LAB CHEMISTRY METHOD 05/05/2024 6:12 PM [facility] Blood Venous blood specimen / Unknown Venipuncture / Unknown 05/05/2024 5:31 PM EST 05/05/2024 5:46 PM EST Justo Quinones DO LAB BLOOD ORDERABLE S Performing Organization Address [facility]/ZIP Co de Phone Number [facility] [address] [place] [address], [place] [phone] * (ABNORMAL) Comprehensive metabolic panel (05/05/2024 5:31 PM EST) [facility] Sodium 140 133 - 145 mmol/L LAB CHEMISTRY METHOD 05/05/2024 6:12 PM [facility] Potassium 4.2 3.5 - 5.5 mmol/L LAB CHEMISTRY METHOD 05/05/2024 6:12 PM [facility] Chloride 110 96 - 110 mmol/L LAB CHEMISTRY METHOD 05/05/2024 6:12 PM [facility] CO2 25 21 - 32 mmol/L LAB CHEMISTRY METHOD 05/05/2024 6:12 PM [facility] Anion Gap 5 3 - 11 LAB CHEMISTRY METHOD 05/05/2024 6:12 PM [facility] Glucose 133(H) 70 - 100 mg/dL LAB CHEMISTRY METHOD 05/05/2024 6:12 PM [facility] BUN 12 5 - 25 mg/dL LAB CHEMISTRY METHOD 05/05/2024 6:12 PM [facility] Creatinine 0.53 0.50 - 1.10 mg/dL LAB CHEMISTRY METHOD 05/05/2024 6:12 PM [facility] eGFR 116 >=60 mL/min/1. 73m2 LAB CHEMISTRY METHOD 05/05/2024 6:12 PM [facility] Comment:Calculation based on the??Chronic Kidney Disease Epidemiology Collaboration (CKD-EPI) equation refit??without adjustment for race. BUN/Creatinine Ratio 22.6 LAB CHEMISTRY METHOD 05/05/2024 6:12 PM [facility] Calcium 9.3 8.5 - 10.5 mg/dL LAB CHEMISTRY METHOD 05/05/2024 6:12 PM [facility] AST (SGOT) 36 10 - 42 unit/L LAB CHEMISTRY METHOD 05/05/2024 6:12 PM [facility] ALT (SGPT) 77(H) 10 - 60 unit/L LAB CHEMISTRY METHOD 05/05/2024 6:12 PM [facility] Alkaline Phosphatase 96 42 - 121 unit/L LAB CHEMISTRY METHOD 05/05/2024 6:12 PM [facility] Total Protein 6.3 6.0 - 8.0 g/dL LAB CHEMISTRY METHOD 05/05/2024 6:12 PM [facility] Albumin 3.6 3.2 - 5.0 g/dL LAB CHEMISTRY METHOD 05/05/2024 6:12 PM [facility] Total Bilirubin 0.4 0.0 - 1.4 mg/dL LAB CHEMISTRY METHOD 05/05/2024 6:12 PM [facility] Blood Venous blood specimen / Unknown Venipuncture / Unknown 05/05/2024 5:31 PM EST 05/05/2024 5:46 PM EST Justo Quinones DO LAB BLOOD ORDERABLE S [facility] [address] [place] [address], from Last 3 Months Care Teams Ballistics Tester Relationship Specialty Start Date End Date Chantell Pagan MD [facility] [address] [place] [address] PCP - General 09/28/23
--- OUTSIDE RECORDS SUMMARY | 2024-07-24 19:21 | XMS_ITS | Encounter Summary ---
Author Organization Address [address] [place] [address] Care Team Providers Care Leno Sewer Name Role Phone Chantell Pagan MD Primary Care Provider + Encounter Details Date Type Department Care Team (Late st Contact Info) Description 05/21/2024 Lab Requisition [facility] - Main Lab [address] [facility] [place] [address] Nabor Tanner PA [address] [place] [address] Gross hematuria Social History Tobacco [...] and pathological findings. 05/28/2024 4:27 PM EST [facility] Clinical Information [id number] Cytology/Urine FISH (now) 05/28/2024 4:27 PM [facility] Gross Description A. Urine, Voided, : [id number] Received 1 TP (CYTO) 1 TP (FISH) 05/28/2024 4:27 PM [facility] Disclaimer Unless otherwise specified, all tissue is 10% NB formalin fixed and paraffin embedded. 05/28/2024 4:27 PM [facility] Tissue Urine specimen from urethra / Unknown 05/14/2024 05/21/2024 10:27 AM EST Nabor LAGUERRE LAB PATHOLOGY ORDERA BLES [facility] Organization Address City/State/ZIP Co de Phone Number [facility] [address] [place], [place] [address] [phone] documented in this encounter Visit Diagnoses Diagnosis Gross hematuria documented in this encounter Care Teams Leno Sewer Relationship Specialty Start Date End Date Chantell Pagan MD [facility] [address] [place] [address] PCP - General 09/28/23 documented as of this encounter
[2024-07-24 19:44] VITALS: BP 136/85; PULSE 85; TEMP 37; O2SAT 93
[2024-07-24] MEDS: traZODone HCL 50 MG TABLET PO (20:30)
[2024-07-24] MEDS: Famotidine 20 MG TABLET PO (20:30)
[2024-07-24] MEDS: Amoxicillin/Potassium Clav 875 MG TABLET PO (20:30)
[2024-07-25 08:00] VITALS: BP 109/57; PULSE 90; RESP 16; TEMP 36.6; O2SAT 90
[2024-07-25] MEDS: Ondansetron ODT 4 MG TAB.RAPDIS TRANSLINGU (08:31)
[2024-07-25] MEDS: Famotidine 20 MG TABLET PO ×2 (08:32→20:20)
[2024-07-25] MEDS: LORazepam 1 MG TABLET PO ×3 (08:32→20:20)
[2024-07-25 09:00] VITALS: O2SAT 94
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
[2024-07-25] MEDS: hydrOXYzine HCL 25 MG TABLET PO (12:19)
[2024-07-25] MEDS: Doxycycline Monohydrate 100 MG CAPSULE PO ×2 (12:19→20:20)
[2024-07-25] MEDS: Amoxicillin/Potassium Clav 875 MG TABLET PO (12:19)
[2024-07-25] MEDS: Gabapentin 400 MG CAPSULE PO ×3 (12:44→20:19)
[2024-07-25] MEDS: Nicotine 21 MG PATCH.TD24 TRANSDERMA (15:55)
[2024-07-25 17:20] LABS: CDiff Gene PCR NEGATIVE (Negative)
[2024-07-25] MEDS: Buprenorphine/Naloxone 4/1 mg FILM 1 FILM SUBLINGUAL ×2 (17:20→20:20)
[2024-07-25 20:00] VITALS: BP 104/55; PULSE 108; TEMP 36.6; O2SAT 97
[2024-07-25] MEDS: Loperamide HCl 2 MG CAPSULE 4 MG PO (22:19)
--- NOTE | 2024-07-26 08:48 | P.PNPSI_ITS ---
Subjective Subjective Date of Service: 07/26/24 Reason For Visit: Transfer-depression, si, substance abuse,pneumonia Subjective Notes: Patel Warning and 3 Day Medical Problems Affecting Mental Status: No Interim History: Pt reports feeing ready for discharge I only said I was suicidal so I could be admitted . Reports self DC suboxone was main issue leading to admission. Also reports depression, low energy have been issues and open to medications, but concerned about weight gain. Sleep ok. GI symptoms gradually getting better and GI panel pending. Looking forward to visit from [facility] later today. Discussed wellbutrin. Medication Compliance: Yes Side effects from medications: No Attending Groups: Intermittent Review of Systems Acute medical concerns: No Mental Status Exam Mental Status Exam Narrative: Pt is alert and oriented; behavior is pleasant and engaged. Endorse depression. No SI. No HI. No psychosis. Insight and judgment fair. Diagnostics Vital Signs (24Hr): Vital Signs - 24 hr 07/25/24 09:00 07/25/24 20:00 Temperature 97.8 F Pulse Rate 108 H Blood Pressure 104/55 L Pulse Oximetry 94 97 Oxygen Delivery Method Room Air Room Air BMI result Body Mass Index 31.6 Labs Labs: Laboratory Results - last 48 hr 07/25/24 15:20 C. difficile Tox B Gene NEGATIVE Medications Medications Current Medications Acetaminophen (Acetaminophen 325 Mg Tablet) 650 mg PO Q6H PRN PRN Reason: Pain, Mild (Pain Scale 1-10) Al Hydroxide/Mg Hydroxide (Magnesium Hydrox/Alum Hydrox 30 Ml Oral.Susp) 30 ml PO Q6H PRN PRN Reason: Heartburn/Nausea Buprenorphine/Naloxone (Buprenorphine/Naloxone 4/1 Mg Film) 1 film SUBLINGUAL BID [facility] Last Admin: 07/25/24 20:20 Dose: 1 film Doxycycline Monohydrate (Doxycycline Monohydrate 100 Mg Capsule) 100 mg PO Q12H [facility] Stop: 07/29/24 20:01 Last Admin: 07/25/24 20:20 Dose: 100 mg Famotidine (Famotidine 20 Mg Tablet) 20 mg PO BID [facility] Last Admin: 07/25/24 20:20 Dose: 20 mg Folic Acid (Folic Acid 1 Mg Tablet) 1 mg PO DAILY [facility] Last Admin: 07/25/24 09:00 Dose: Not Given Gabapentin (Gabapentin 400 Mg Capsule) 400 mg PO QID [facility] Last Admin: 07/25/24 20:19 Dose: 400 mg Hydroxyzine HCl (Hydroxyzine Hcl 25 Mg Tablet) 25 mg PO Q6H PRN PRN Reason: Anxiety Last Admin: 07/25/24 12:19 Dose: 25 mg Loperamide HCl (Loperamide Hcl 2 Mg Capsule) 4 mg PO Q6H PRN PRN Reason: Loose Stool Last Admin: 07/25/24 22:19 Dose: 4 mg Lorazepam (Lorazepam 1 Mg Tablet) 1 mg PO TID PRN PRN Reason: severe anxiety Last Admin: 07/25/24 20:20 Dose: 1 mg Magnesium Hydroxide (Milk Of Magnesia 30 Ml Oral.Susp) 30 ml PO DAILY PRN PRN Reason: Constipation Nicotine (Nicotine 21 Mg Patch.Td24) 21 mg TRANSDERMA DAILY PRN PRN Reason: smoking cessation Last Admin: 07/25/24 15:55 Dose: 21 mg Ondansetron HCl (Ondansetron Odt 4 Mg Tab.Rapdis) 4 mg TRANSLINGU Q6H PRN PRN Reason: Nausea and Vomiting Last Admin: 07/25/24 08:31 Dose: 4 mg Trazodone HCl (Trazodone Hcl 50 Mg Tablet) 50 mg PO BEDTIME MRX1 PRN PRN Reason: Insomnia Last Admin: 07/24/24 20:30 Dose: 50 mg Allergies Allergies Allergy/AdvReac Type Severity Reaction Status Date / Time No Known Allergies Allergy Verified 07/20/24 17:04 Assessment & Plan Assessment & Plan (1) MDD (major depressive disorder), recurrent, severe, with psychosis: Status: Acute Code(s): F33.3 - Major depressive disorder, recurrent, severe with psychotic symptoms (2) PTSD (post-traumatic stress disorder): Status: Acute Code(s): F43.10 - Post-traumatic stress disorder, unspecified (3) Opioid use disorder: Status: Acute Code(s): F11.90 - Opioid use, unspecified, uncomplicated (4) Left lower lobe pneumonia: Status: Acute Code(s): J18.9 - Pneumonia, unspecified organism Plan Patient is a 44-year-old female with history of depression, substance abuse, muscular dystrophy? Who presented to the ED reporting worsening depression, severe insomnia, AH, SI with plan to overdose on her medication. Patient was medically admitted and treated for pneumonia, now transferred to . Patient is currently feeling sick, nauseous, intermittently vomiting and having diarrhea and is thus a poor historian. She endorses much anxiety and depression. She reports she has been off her medication for several months after losing access to her PCP and is hoping to get help we stabilizing on home medication regimen. Reports buying Suboxone on the street. Formulation/clinical reasoning: Patient reports history of depression and anxiety which have both worsened since being off her medications for several months. Very likely substance abuse is exacerbating her symptoms. At this point it is not clear if AH was substance induced verses MDD with psychotic features; for now Will diagnose MDD with psychosis with additional rule out for an organic psychotic illness. -at this time can not confirm psychiatric medications and review of med history does not show any prescription history for psychotropic medications. -patient nauseous, vomiting with diarrhea: Could be due to antibiotics verse opioid withdrawal. C diff negative; GI panel pending -typewriter mechanic started Suboxone 4 mg b.i.d. since patient is buying Suboxone on the street -once patient is better able to participate in interview will be able to better assess symptoms and appropriate treatment Plan: CV Q 15 minute checks Continue doxycycline b.i.d. for 5 days; discussed with hospitalist and typewriter mechanic discontinued Augmentin (as likely unnecessary and maybe causing nausea/diarrhea) Started Suboxone 4 mg b.i.d. GI panel pending 07/26/24: start wellbutrin tomorrow 150mg. GI panel pending. [address] Patient educated on: medication risk/benefits Informed Consent: understands Reason for continued inpatient stay Substantial Risk for: harm to self Time Spent With Patient Time: Total time managing care of this patient today ____ minutes.
[2024-07-26] MEDS: Famotidine 20 MG TABLET PO ×2 (08:49→20:06)
[2024-07-26] MEDS: Buprenorphine/Naloxone 4/1 mg FILM 1 FILM SUBLINGUAL ×2 (08:49→20:06)
[2024-07-26] MEDS: Folic Acid 1 MG TABLET PO (08:49)
[2024-07-26] MEDS: Gabapentin 400 MG CAPSULE PO ×3 (08:49→20:06)
[2024-07-26] MEDS: Doxycycline Monohydrate 100 MG CAPSULE PO ×2 (08:49→20:07)
[2024-07-26] MEDS: Nicotine 21 MG PATCH.TD24 TRANSDERMA (09:00)
[2024-07-26] MEDS: Loperamide HCl 2 MG CAPSULE 4 MG PO (09:11)
[2024-07-26] MEDS: LORazepam 1 MG TABLET PO ×3 (09:23→20:06)
[2024-07-26 13:24] LABS: Adenovirus F 40/41 Not Detected (Not Detect.); Astrovirus Not Detected (Not Detect.); Campylobacter Not Detected (Not Detect.); Cryptosporidium Not Detected (Not Detect.); Cyclospora cayetanensis Not Detected (Not Detect.); E. coli EAEC Not Detected (Not Detect.); E. coli EPEC Not Detected (Not Detect.); E. coli ETEC Not Detected (Not Detect.); E. coli STEC Not Detected (Not Detect.); Entamoeba histolytica Not Detected (Not Detect.); Giardia lamblia Not Detected (Not Detect.); Plesiomonas shigelloides Not Detected (Not Detect.); Rotavirus A Not Detected (Not Detect.); Salmonella Not Detected (Not Detect.); Sapovirus Not Detected (Not Detect.); Shigella sp./EIEC Not Detected (Not Detect.); Vibrio Not Detected (Not Detect.); Vibrio Cholerae Not Detected (Not Detect.); Yersinia enterocolitica Not Detected (Not Detect.)
--- NOTE | 2024-07-26 14:43 | PC.NURSE ---
Pt has tested Norovirus positive. She has been asleep and will notify her once she wakens. ship captain aware and contact precautions in place.
[2024-07-26] MEDS: hydrOXYzine HCL 25 MG TABLET PO (15:46)
--- NOTE | 2024-07-26 15:53 | PC.NURSE ---
pt reports she wants to keep her scheduled 430pm visit with her fiance and agreed to sign a release of information so staff may notify the fiance that the pt has received a positive preliminary Norovirus test prior to his visit. Release of information for fikristina, [employer] Knapp, obtained and completed. Radha notified of positive test and agreed to attend visit despite testing
[2024-07-27] MEDS: LORazepam 1 MG TABLET PO ×2 (05:27→11:17)
[2024-07-27] MEDS: Magnesium Hydrox/Alum Hydrox 30 ML ORAL.SUSP PO (07:59)
[2024-07-27 08:00] VITALS: BP 111/61; PULSE 85; RESP 20; TEMP 36.4; O2SAT 93
[2024-07-27] MEDS: Famotidine 20 MG TABLET PO (08:00)
[2024-07-27] MEDS: buPROPion HCl XL 150 MG TAB.ER.24H PO (08:00)
[2024-07-27] MEDS: Gabapentin 400 MG CAPSULE PO (08:00)
[2024-07-27] MEDS: Folic Acid 1 MG TABLET PO (08:01)
[2024-07-27] MEDS: Loperamide HCl 2 MG CAPSULE 4 MG PO (08:01)
[2024-07-27] MEDS: hydrOXYzine HCL 25 MG TABLET PO (08:01)
[2024-07-27] MEDS: Doxycycline Monohydrate 100 MG CAPSULE PO (08:01)
[2024-07-27] MEDS: Buprenorphine/Naloxone 4/1 mg FILM 1 FILM SUBLINGUAL (08:02)
[2024-07-27] MEDS: Nicotine 21 MG PATCH.TD24 TRANSDERMA (08:03)
--- NOTE | 2024-07-27 09:44 | HO.PSYCHPN ---
Subjective Subjective Date of Service: 07/27/24 Reason For Visit: Transfer-depression, si, substance abuse,pneumonia Diagnostics Vital Signs (24Hr): Vital Signs - 24 hr 07/27/24 08:00 Temperature 97.5 F Pulse Rate 85 Respiratory Rate 20 Blood Pressure 111/61 Pulse Oximetry 93 Oxygen Delivery Method Room Air BMI result Body Mass Index 31.6 Labs Labs: Laboratory Results - last 48 hr 07/25/24 07/25/24 15:06 15:20 Stl C. cayetanensis PCR Not Detected Stool Rotavirus A PCR Not Detected Stl Adenov F 40/41 PCR Not Detected Stool Astrovirus (PCR) Not Detected Stool Campylobacter PCR Not Detected Stool Cryptosporidium PCR Not Detected Stl Sh Tox Pr E STEC PCR Not Detected Stool E coli O157 PCR Not applicable Stl Enterotoxigenic E PCR Not Detected Stool EPEC (PCR) Not Detected Stool EAEC (PCR) Not Detected Stl E. histolytica PCR Not Detected Stool Giardia Lamblia PCR Not Detected Stl P. shigelloides PCR Not Detected Stool Salmonella PCR Not Detected Stool Sapovirus (PCR) Not Detected Stl Shigella/EIEC PCR Not Detected St Y.enterocolitica PCR Not Detected Stool Vibrio (PCR) Not Detected Stl Vibrio cholerae PCR Not Detected Stl Norovirus GI/GII PCR See Comment C. difficile Tox B Gene NEGATIVE Medications Medications Current Medications Acetaminophen (Acetaminophen 325 Mg Tablet) 650 mg PO Q6H PRN PRN Reason: Pain, Mild (Pain Scale 1-10) Al Hydroxide/Mg Hydroxide (Magnesium Hydrox/Alum Hydrox 30 Ml Oral.Susp) 30 ml PO Q6H PRN PRN Reason: Heartburn/Nausea Last Admin: 07/27/24 07:59 Dose: 30 ml Buprenorphine/Naloxone (Buprenorphine/Naloxone 4/1 Mg Film) 1 film SUBLINGUAL BID [facility] Last Admin: 07/27/24 08:02 Dose: 1 film Bupropion HCl (Bupropion Hcl Xl 150 Mg Tab.Er.24h) 150 mg PO DAILY [facility] Last Admin: 07/27/24 08:00 Dose: 150 mg Doxycycline Monohydrate (Doxycycline Monohydrate 100 Mg Capsule) 100 mg PO Q12H [facility] Stop: 07/29/24 20:01 Last Admin: 07/27/24 08:01 Dose: 100 mg Famotidine (Famotidine 20 Mg Tablet) 20 mg PO BID [facility] Last Admin: 07/27/24 08:00 Dose: 20 mg Folic Acid (Folic Acid 1 Mg Tablet) 1 mg PO DAILY [facility] Last Admin: 07/27/24 08:01 Dose: 1 mg Gabapentin (Gabapentin 400 Mg Capsule) 400 mg PO QID [facility] Last Admin: 07/27/24 08:00 Dose: 400 mg Hydroxyzine HCl (Hydroxyzine Hcl 25 Mg Tablet) 25 mg PO Q6H PRN PRN Reason: Anxiety Last Admin: 07/27/24 08:01 Dose: 25 mg Loperamide HCl (Loperamide Hcl 2 Mg Capsule) 4 mg PO Q6H PRN PRN Reason: Loose Stool Last Admin: 07/27/24 08:01 Dose: 4 mg Lorazepam (Lorazepam 1 Mg Tablet) 1 mg PO TID PRN PRN Reason: severe anxiety Last Admin: 07/27/24 05:27 Dose: 1 mg Magnesium Hydroxide (Milk Of Magnesia 30 Ml Oral.Susp) 30 ml PO DAILY PRN PRN Reason: Constipation Nicotine (Nicotine 21 Mg Patch.Td24) 21 mg TRANSDERMA DAILY PRN PRN Reason: smoking cessation Last Admin: 07/27/24 08:03 Dose: 21 mg Ondansetron HCl (Ondansetron Odt 4 Mg Tab.Rapdis) 4 mg TRANSLINGU Q6H PRN PRN Reason: Nausea and Vomiting Last Admin: 07/25/24 08:31 Dose: 4 mg Trazodone HCl (Trazodone Hcl 50 Mg Tablet) 50 mg PO BEDTIME MRX1 PRN PRN Reason: Insomnia Last Admin: 07/24/24 20:30 Dose: 50 mg Allergies Allergies Allergy/AdvReac Type Severity Reaction Status Date / Time No Known Allergies Allergy Verified 07/20/24 17:04 Assessment & Plan Assessment & Plan (1) MDD (major depressive disorder), recurrent, severe, with psychosis: Status: Acute Code(s): F33.3 - Major depressive disorder, recurrent, severe with psychotic symptoms (2) PTSD (post-traumatic stress disorder): Status: Acute Code(s): F43.10 - Post-traumatic stress disorder, unspecified (3) Opioid use disorder: Status: Acute Code(s): F11.90 - Opioid use, unspecified, uncomplicated (4) Left lower lobe pneumonia: Status: Acute Code(s): J18.9 - Pneumonia, unspecified organism Plan Patient is a 44-year-old female with history of depression, substance abuse, muscular dystrophy? Who presented to the ED reporting worsening depression, severe insomnia, AH, SI with plan to overdose on her medication. Patient was medically admitted and treated for pneumonia, now transferred to . Patient is currently feeling sick, nauseous, intermittently vomiting and having diarrhea and is thus a poor historian. She endorses much anxiety and depression. She reports she has been off her medication for several months after losing access to her PCP and is hoping to get help we stabilizing on home medication regimen. Reports buying Suboxone on the street. Formulation/clinical reasoning: Patient reports history of depression and anxiety which have both worsened since being off her medications for several months. Very likely substance abuse is exacerbating her symptoms. At this point it is not clear if AH was substance induced verses MDD with psychotic features; for now Will diagnose MDD with psychosis with additional rule out for an organic psychotic illness. -at this time can not confirm psychiatric medications and review of med history does not show any prescription history for psychotropic medications. -patient nauseous, vomiting with diarrhea: Could be due to antibiotics verse opioid withdrawal. C diff negative; GI panel pending -screen writer started Suboxone 4 mg b.i.d. since patient is buying Suboxone on the street -once patient is better able to participate in interview will be able to better assess symptoms and appropriate treatment Plan: CV Q 15 minute checks Continue doxycycline b.i.d. for 5 days; discussed with hospitalist and screen writer discontinued Augmentin (as likely unnecessary and maybe causing nausea/diarrhea) Started Suboxone 4 mg b.i.d. GI panel pending 07/26/24: start wellbutrin tomorrow 150mg. GI panel pending. [address] Time Spent With Patient Time: Total time managing care of this patient today ____ minutes.
--- NOTE | 2024-07-27 10:11 | P.DS_ITS ---
DS: Providers Provider Date of Service: 07/27/24 Date of admission: 07/24/24 13:04 Date of discharge: 07/27/24 Primary care physician: Unknown Physician DS: Diagnosis Discharge Diagnosis (1) MDD (major depressive disorder), recurrent, severe, with psychosis: Status: Acute (2) PTSD (post-traumatic stress disorder): Status: Acute (3) Opioid use disorder: Status: Acute (4) Left lower lobe pneumonia: Status: Acute DS: Medications Discharge Medications Home Medications: Home Medications ?Medication ?Instructions ?Recorded ?Confirmed famotidine 20 mg tablet 20 mg PO BID PRN upset stomach 07/20/24 07/24/24 folic acid 1 mg tablet 1 mg PO DAILY 07/20/24 07/24/24 gabapentin 400 mg capsule 400 mg PO QID 07/20/24 07/24/24 Previous Rx's ?Medication ?Instructions ?Recorded amoxicillin 875 mg-potassium 1 tab PO Q12H #9 tabs 07/24/24 clavulanate 125 mg tablet doxycycline monohydrate 100 mg 100 mg PO Q12H #9 caps 07/24/24 capsule lorazepam 1 mg tablet 1 mg PO TID PRN Anxiety, agitation 07/24/24 #7 tabs Mental Status Exam Mental Status Exam Narrative: Pt is alert and oriented; behavior is pleasant and engaged. Denies depression. No SI. No HI. No psychosis. Insight and judgment fair. Data Data Completed and Pending Completed studies during hospitalization [Text1]: 07/25/24 07/25/24 15:06 15:20 Stl C. cayetanensis PCR Not Detected Stool Rotavirus A PCR Not Detected Stl Adenov F 40/41 PCR Not Detected Stool Astrovirus (PCR) Not Detected Stool Campylobacter PCR Not Detected Stool Cryptosporidium PCR Not Detected Stl Sh Tox Pr E STEC PCR Not Detected Stool E coli O157 PCR Not applicable Stl Enterotoxigenic E PCR Not Detected Stool EPEC (PCR) Not Detected Stool EAEC (PCR) Not Detected Stl E. histolytica PCR Not Detected Stool Giardia Lamblia PCR Not Detected Stl P. shigelloides PCR Not Detected Stool Salmonella PCR Not Detected Stool Sapovirus (PCR) Not Detected Stl Shigella/EIEC PCR Not Detected St Y.enterocolitica PCR Not Detected Stool Vibrio (PCR) Not Detected Stl Vibrio cholerae PCR Not Detected Stool Norovirus (PCR) Pending Stl Norovirus GI/GII PCR See Comment C. difficile Tox B Gene NEGATIVE DS: Summary Hospital Course Hospital Course: 07/26/24: Pt reports feeing ready for discharge I only said I was suicidal so I could be admitted . Reports self DC suboxone was main issue leading to admission. Also reports depression, low energy have been issues and open to medications, but concerned about weight gain. Sleep ok. GI symptoms gradually getting better and GI panel pending. Looking forward to visit from [facility] later today. Discussed wellbutrin. 07/27/24: Ongoing request for discharge. Denies depression, SI, HI, psychosis. No grounds for involuntary retention. GI upset/abdo pain- felt gallstone related as similar in past. Reports usually settles and will go to PCP or ER of worsens or does not resolve. Prefers DC over ongoing/further work up. Status at Discharge Functional status at discharge: independent ambulation Overall status at discharge: patient is back to baseline Time Spent with Patient Time attestation: Total time managing care of this patient today __15__ minutes. Time spent: Less than 30 minutes Discharge Plan Discharge Anticipated Discharge Date/Time: 07/27/24 10:12 Patient Disposition: Home, Self-Care Discharge Diagnosis: depression Referrals: Physician,Unknown J [Primary Care Provider] - 1 Week Discharge Medications: New loperamide 2 mg Capsule 4 mg PO Q6H PRN (Reason: Loose Stool) Qty: 28 0RF ondansetron 4 mg Tablet,Disintegrating 4 mg translingual Q6H PRN (Reason: Nausea And Vomiting) Qty: 28 0RF bupropion HCl 150 mg Tablet Extended Release 24 Hr 150 mg PO DAILY Qty: 14 0RF buprenorphine-naloxone [Suboxone] 4-1 mg Film 1 film sublingual BID Qty: 14 0RF Continued gabapentin 400 mg capsule 400 mg PO QID Qty: 28 0RF famotidine 20 mg tablet 20 mg PO BID PRN (Reason: upset stomach) Qty: 14 0RF doxycycline monohydrate 100 mg Capsule 100 mg PO Q12H Qty: 9 0RF amoxicillin-pot clavulanate 875-125 mg Tablet 1 tab PO Q12H Qty: 9 0RF Discontinued folic acid 1 mg tablet 1 mg PO DAILY lorazepam 1 mg Tablet 1 mg PO TID PRN (Reason: Anxiety, agitation) Qty: 7 0RF Discharge Orders: Discharge Order (Routine); Ordered 07/27/24 Ordered By: Agustín Hummel Diet: Regular diet Activity on Discharge: As tolerated Stand Alone Forms: Patient Portal Discharge page Print Language: Latvian Care Plan Goals: Follow up with MANAGER FIBER, [address] [place] [address]- call or walk in for intake evaluation. Follow up at [facility] for suboxone- already a patient there. Health Concerns: Continue antibiotic course. If stomach discomfort ongoing, follow up with PCP or ED Plan of Treatment: See above Assessment: See above
[2024-07-27] MEDS: Ibuprofen 800 MG TABLET PO (10:43)
[2024-07-27] MEDS: Acetaminophen 325 MG TABLET 975 MG PO (10:44)
[2024-07-29 10:46] LABS: Norovirus Stool PCR DETECTED
== END 2024-07-27 11:46 | disposition home or self-care (01) | DRG 885 ==
PROVIDERS: Psychiatry & Neurology Psychiatry; Admitting Provider Clinical Nurse Specialist Psychiatric/Mental Health, Adult; Visit Provider Clinical Nurse Specialist Psychiatric/Mental Health, Adult
DX: F33.3 Major depressive disorder, recurrent, severe with psychotic symptoms (principal); F11.20 Opioid dependence, uncomplicated; R45.851 Suicidal ideations; T40.496A Underdosing of other synthetic narcotics, initial encounter; F43.10 Post-traumatic stress disorder, unspecified; F17.210 Nicotine dependence, cigarettes, uncomplicated; Z71.6 Tobacco abuse counseling; Z79.899 Other long term (current) drug therapy
CPT/HCPCS: 87493; 87507

== ENCOUNTER → 2024-07-24 13:04 | Outpatient (BNV) | payer OTHER, SELFPAY | PROVIDERS: Admitting Provider Clinical Nurse Specialist Psychiatric/Mental Health, Adult; Visit Provider Psychiatry & Neurology Psychiatry | DX: F33.3 Major depressive disorder, recurrent, severe with psychotic symptoms (principal); F43.11 Post-traumatic stress disorder, acute; F11.90 Opioid use, unspecified, uncomplicated; J18.9 Pneumonia, unspecified organism | CPT/HCPCS: 90792; 99232; 99238 ==